=== PATIENT | male | born 1950 | race Caucasian/White ===

== ENCOUNTER → 2020-12-23 08:54 | Outpatient (BNVA) | payer OTHER, SELFPAY | PROVIDERS: PCP Internal Medicine; Visit Provider Internal Medicine | DX: I48.0 Paroxysmal atrial fibrillation (principal); I10 Essential (primary) hypertension; E78.5 Hyperlipidemia, unspecified | CPT/HCPCS: 93005; 99202 ==

== ENCOUNTER → 2021-01-31 09:12 | Outpatient (REF) | payer MEDICARE, OTHER, SELFPAY ==
--- NOTE | 2021-01-31 09:19 | CA_ITS ---
Transthoracic Echocardiogram Patient (Last, First, Middle): Michael Jaramillo, Gender: Male Date of : 1950 Age: 71 Procedure Date: 01/31/2021 Procedure Type: Transthoracic Echocardiogram Location: OP Height: 170.18 cm Weight: 68.04 kg BSA: 1.79 m2 Heart Rate: bpm BP: 120 / 66 mmHg Microstrategy Architect Developer: [email or web address] Referring MD: Oliverio Starks MD Symptoms: I48.0 - Paroxysmal atrial fibrillation Study Quality: Fair ECG Rhythm: Sinus Conclusions: - The left ventricular systolic function is normal. The visually estimated ejection fraction is between 60-65%. - There is mild aortic valve regurgitation. - There is mild mitral valve regurgitation. - There is mild tricuspid valve regurgitation. - Top normal ascending aortic size at 4 cm. Findings Left Ventricle Normal left ventricular cavity size. There is normal left ventricular wall thickness. The left ventricular systolic function is normal. The visually estimated ejection fraction is between 60-65%. There is no evidence of regional wall motion abnormalities. E/E prime ratio is <8, consistent with normal filling pressures. Evidence suggests grade I (mild) diastolic dysfunction. Right Ventricle Normal right ventricular cavity size and systolic function. Atria The left atrium is normal in size. The right atrium is normal in size. Aortic Valve There is a normal trileaflet aortic valve. There is no aortic valve stenosis. There is mild aortic valve regurgitation. Mitral Valve The mitral valve appears normal. There is mild mitral valve regurgitation. There is no mitral valve stenosis. Pulmonic Valve The pulmonic valve was not well visualized. Tricuspid Valve Normal tricuspid valve structure. There is mild tricuspid valve regurgitation. The pulmonary artery systolic pressure is normal. Great Vessels Top normal ascending aortic size at 4 cm; arch measures 3.5 cm. Venous The inferior vena cava is normal in size and collapses greater than 50% with inspiration. Pericardium/Pleural There is no evidence of pericardial effusion. Prior Study Comparison No prior study available for comparison. Measurements 2D Linear Measurements IVSd: 1.05 0.6-0.9/0.6-1.0 cm LVIDd: 5.14 3.9-5.3/4.2-5.9 cm LVIDd Index: 2.87 2.4-3.2/2.2-3.1 cm/m2 LVIDs: 3.23 2.0-3.6 cm LVPWd: 0.84 0.7-1.1 cm Ao Root: 3.30 2.1-3.5 cm LA Diam: 3.70 2.7-3.8/3.0-4.0 cm LAIDs Index: 2.07 1.5-2.3 cm/m2 LV Mass: 220.25 67-162/88-224 g LV Mass Index: 123.05 43-95/49-115 g/m2 LVOT Diam: 2.10 3.0+(-)1.3 cm 2D Systolic Function EF 4C: 67.80 >55% EF 2C: 62.60 >55% EF BiP: 63.20 >55% Mitral Valve MV Pk E: 0.56 MV PK A: 0.56 MV Decel Time: 206.00 E/A: 1.00 E'Lateral: 7.35 E'Medial: 6.77 E/E' Med: 8.30 E/E' Lat: 7.70 PHT: 60.00 MVA PHT: 3.67 Decel [place]: 2.73 Aortic Valve AoV Pk Rubin: 1.48 AoV Pk Grad: 9.00 AI Pk Rubin: 3.64 AI [place]: 2.15 LVOT LVOT Pk Rubin: 0.89 LVOT Mn Rubin: 0.60 LVOT VTI: 0.19 LVOT Pk Grad: 3.00 LVOT Mn Grad: 2.00 LVOT Diam: 2.10 LVOT Area: 3.46 Diastolic Function MV Pk E: 0.56 MV Pk A: 0.56 E/A: 1.00 E'Medial: 6.77 E/E' Med: 8.30 E' Laterial: 7.35 E/E' Lat: 7.70 Tricuspid Valve TR Pk Rubin: 2.21 TR Pk Grad: 20.00 RA Press: 3.00 RVSP: 23.00 Great Vessels Aorta Ao Root-2D: 3.30 2.0-3.7 cm Ao Asc: 3.90 2.1-3.4 cm Ao Arch: 3.50 Updated in Other Vendor System with Status of Final Oliverio Starks MD electronically signed on 01/31/2021 1:46:31 PM with status of Final
--- NOTE | 2021-01-31 09:19 | ECG_ITS ---
Hook-up date: 2021-01-31 10:29:00 Duration: 27:22:00 Test Indications: PAF Medications: 00928 QRS complexes 129 Ventricular ectopics which represent <1 % of total QRS comp. 4 Supraventricular ectopics which represent <1 % of total QRS comp. * Paced QRS complexs which represent % of total QRS comp. VENTRICULAR ECTOPY 129 Isolated 0 Bigeminal Cycles 0 Couplets 0 Runs 0 Beats in Runs * Beats LONGEST at * BPM at :: -- * Beats FASTEST at * BPM at :: -- SUPRAVENTRICULAR ECTOPY 4 Isolated 0 Couplets 0 Runs 0 Beats in Runs * Beats LONGEST at * BPM at :: -- * Beats FASTEST at * BPM at :: -- HEART RATES 47 MIN at 23:59:34 2021-01-31 66 AVG 104 MAX at 10:20:22 2021-02-01 LONGEST RR 1.3680 secs at 23:59:28 2021-01-31 S-T LEVELS Channel 1 - 128 mm at 10:29:00 2021-01-31 - 128 mm at 10:29:00 2021-01-31 Channel 2 - 128 mm at 10:29:00 2021-01-31 - 128 mm at 10:29:00 2021-01-31 Channel 3 - 128 mm at 02:94:81 -- - 128 mm at 02:94:81 Underlying rhythm is sinus; Average ventricular rate 66/min; Rare PVCs; No evidence of atrial fibrillation; Patient did not report any symptoms in the diary Referred By: Keila Rendon Overread By: KEILA RENDON
== END ==
LOC: HO.CARD 09:12
PROVIDERS: PCP Internal Medicine; Visit Provider Internal Medicine
DX: I48.0 Paroxysmal atrial fibrillation (principal)
CPT/HCPCS: 93225; 93226; 93306

== ENCOUNTER → 2021-02-14 09:35 | Outpatient (BNVA) | payer MEDICARE, OTHER, SELFPAY | PROVIDERS: PCP Internal Medicine; Visit Provider Nurse Practitioner Family | DX: I48.0 Paroxysmal atrial fibrillation (principal); I10 Essential (primary) hypertension; E78.5 Hyperlipidemia, unspecified; Z79.01 Long term (current) use of anticoagulants | CPT/HCPCS: 99212 ==

== ENCOUNTER 2021-02-15 10:30 | Outpatient (REF) | payer MEDICARE, SELFPAY ==
[2021-02-15 11:36] LABS: MANUAL DIFF FLAG NO
[2021-02-15 11:51] LABS: Basophils Absolute Auto 0.1 X10*3/uL (0.0-0.2); Basophils Percent Auto 1.3 % (0-2); Eosinophils Absolute Auto 0.2 X10*3/uL (0.0-0.4); Eosinophils Percent Auto 3.1 % (0-4); Hematocrit 41.1 % (42-52); Hemoglobin 13.6 g/dl (14.0-18.0); Imm Gran Abs Auto 0.02 X10*3/uL (0.00-0.03); Imm Gran Pct Auto 0.4 % (0.0-0.4); Lymphocytes Absolute Auto 1.9 X10*3/uL (1.2-4.9); Mean Corpuscular HGB Conc 33.1 g/dl (31.0-36.0); Mean Corpuscular Hemoglobin 30.3 pg (27.0-33.0); Mean Corpuscular Volume 91.5 fL (80-98); Mean Platelet Volume 10.9 fL (9.4-12.4); Monocytes Absolute Auto 0.6 X10*3/uL (0.1-1.2); Monocytes Percent Auto 11.9 % (2-11); Neutrophils Absolute Auto 2.1 X10*3/uL (2.0-8.3); Neutrophils Percent Auto 44.3 % (45-73); Platelet Count 172 X10*3/uL (160-400); Red Blood Count 4.49 X10*6/uL (4.60-5.80); Red Cell Distribution Width 12.6 % (11.0-16.0); White Blood Count 4.8 X10*3/uL (4.8-10.8)
[2021-02-15 12:19] LABS: Alanine Aminotransferase 16 U/L (0-40); Albumin Level 4.4 g/dL (3.5-5.0); Alkaline Phosphatase 64 U/L (39-117); Anion Gap 11 (12-20); Aspartate Amino Transferase 17 U/L (5-37); Bilirubin Total 1.6 mg/dL (0.0-1.0); Blood Urea Nitrogen 10 mg/dL (9-16); Calcium 9.6 mg/dL (8.4-10.2); Carbon Dioxide 27 mmol/L (22-29); Chloride 103 mmol/L (96-108); Cholesterol 183 mg/dL; Estimated Glomerular Filt Rate > 60; Glucose Fasting 94 mg/dL (60-99); HDL Cholesterol 67 mg/dL; LDL Cholesterol Calculated 89 mg/dl; Potassium 4.3 mmol/L (3.3-5.1); Sodium 137 mmol/L (135-145); Total Protein 7.1 g/dL (6.5-8.0); Triglycerides 138 mg/dL
== END 2021-02-15 10:31 | disposition home or self-care (01) ==
LOC: HO.LAB 10:30
PROVIDERS: PCP Internal Medicine; Visit Provider Internal Medicine
DX: N40.0 Benign prostatic hyperplasia without lower urinary tract symptoms (principal); I48.91 Unspecified atrial fibrillation; E78.5 Hyperlipidemia, unspecified; E03.9 Hypothyroidism, unspecified
CPT/HCPCS: 36415; 51798; 80053; 80061; 81002; 84443; 85025; 99202

== ENCOUNTER → 2021-08-14 10:16 | Outpatient (BNVA) | payer MEDICARE, OTHER, SELFPAY | PROVIDERS: PCP Internal Medicine; Referring Provider Internal Medicine; Visit Provider Internal Medicine | DX: I48.0 Paroxysmal atrial fibrillation (principal); I10 Essential (primary) hypertension; E78.5 Hyperlipidemia, unspecified; G47.33 Obstructive sleep apnea (adult) (pediatric) | CPT/HCPCS: 99212 ==

== ENCOUNTER → 2021-09-12 10:14 | Outpatient (BNVA) | payer MEDICARE, OTHER, SELFPAY | PROVIDERS: PCP Internal Medicine; Referring Provider Internal Medicine; Visit Provider Psychiatry & Neurology Neurology | DX: G47.33 Obstructive sleep apnea (adult) (pediatric) (principal) | CPT/HCPCS: 99202 ==

== ENCOUNTER → 2021-09-28 10:49 | Outpatient (REF) | payer MEDICARE, OTHER, SELFPAY | LOC: HO.SL 10:49 | PROVIDERS: PCP Internal Medicine; Visit Provider Psychiatry & Neurology Neurology | DX: G47.33 Obstructive sleep apnea (adult) (pediatric) (principal) | CPT/HCPCS: 95806 ==

== ENCOUNTER 2021-11-02 10:38 | Outpatient (REF) | payer MEDICARE, OTHER, SELFPAY ==
[2021-11-02 10:54] LABS: MANUAL DIFF FLAG NO
[2021-11-02 11:28] LABS: Basophils Absolute Auto 0.1 X10*3/uL (0.0-0.2); Basophils Percent Auto 1.3 % (0-2); Eosinophils Absolute Auto 0.2 X10*3/uL (0.0-0.4); Eosinophils Percent Auto 3.6 % (0-4); Hematocrit 41.1 % (42.0-52.0); Hemoglobin 13.6 g/dl (14.0-18.0); Imm Gran Abs Auto 0.01 X10*3/uL (0.00-0.03); Imm Gran Pct Auto 0.2 % (0.0-0.4); Lymphocytes Absolute Auto 1.9 X10*3/uL (1.2-4.9); Lymphocytes Percent Auto 40.2 % (20-40); Mean Corpuscular HGB Conc 33.1 g/dl (31.0-36.0); Mean Corpuscular Hemoglobin 30.3 pg (27.0-33.0); Mean Corpuscular Volume 91.5 fL (80.0-98.0); Mean Platelet Volume 11.2 fL (9.4-12.4); Monocytes Absolute Auto 0.6 X10*3/uL (0.1-1.2); Monocytes Percent Auto 12.6 % (2-11); Neutrophils Percent Auto 42.1 % (45-73); Platelet Count 168 X10*3/uL (160-400); Red Blood Count 4.49 X10*6/uL (4.60-5.80); Red Cell Distribution Width 12.5 % (11.0-16.0); White Blood Count 4.7 X10*3/uL (4.8-10.8)
[2021-11-02 11:55] LABS: Alanine Aminotransferase 19 U/L (0-40); Albumin Level 4.3 g/dL (3.5-5.0); Alkaline Phosphatase 67 U/L (39-117); Anion Gap 9 (12-20); Aspartate Amino Transferase 20 U/L (5-37); Bilirubin Total 1.2 mg/dL (0.0-1.0); Blood Urea Nitrogen 9 mg/dL (9-16); Calcium 9.5 mg/dL (8.4-10.2); Carbon Dioxide 28 mmol/L (22-29); Chloride 106 mmol/L (96-108); Cholesterol 199 mg/dL; Estimated Glomerular Filt Rate > 60; Glucose Fasting 93 mg/dL (60-99); HDL Cholesterol 62 mg/dL; LDL Cholesterol Calculated 108 mg/dl; Potassium 4.4 mmol/L (3.3-5.1); Sodium 139 mmol/L (135-145); Total Protein 7.2 g/dL (6.5-8.0); Triglycerides 148 mg/dL; Uric Acid 6.5 mg/dL (3.4-7.0)
[2021-11-02 12:10] LABS: Thyroid Stimulating Hormone 1.71 uIU/mL (0.32-4.0)
[2021-11-07 15:02] LABS: Vitamin D 25-OH, D2 <4 ng/mL; Vitamin D 25-OH, D3 13 ng/mL; Vitamin D 25-OH, Total 13 ng/mL (30-100)
== END 2021-11-02 10:39 | disposition home or self-care (01) ==
LOC: HO.LAB 10:38
PROVIDERS: PCP Internal Medicine; Visit Provider Internal Medicine
DX: E78.5 Hyperlipidemia, unspecified (principal); E55.9 Vitamin D deficiency, unspecified; M10.9 Gout, unspecified; E03.9 Hypothyroidism, unspecified; I48.0 Paroxysmal atrial fibrillation; D64.9 Anemia, unspecified; I10 Essential (primary) hypertension
CPT/HCPCS: 36415; 80053; 80061; 82306; 84443; 84550; 85025

== ENCOUNTER → 2021-11-28 08:48 | Outpatient (BNVA) | payer MEDICARE, MEDICAID, SELFPAY | PROVIDERS: PCP Internal Medicine; Referring Provider Internal Medicine; Visit Provider Psychiatry & Neurology Neurology | DX: G47.33 Obstructive sleep apnea (adult) (pediatric) (principal) | CPT/HCPCS: 99212 ==

== ENCOUNTER → 2022-02-06 10:23 | Outpatient (BNVA) | payer MEDICARE, MEDICAID, SELFPAY | PROVIDERS: PCP Internal Medicine; Referring Provider Internal Medicine; Visit Provider Internal Medicine | DX: I48.0 Paroxysmal atrial fibrillation (principal); I77.89 Other specified disorders of arteries and arterioles; I38 Endocarditis, valve unspecified; I10 Essential (primary) hypertension; E78.5 Hyperlipidemia, unspecified; G47.33 Obstructive sleep apnea (adult) (pediatric) | CPT/HCPCS: 93005; 99212 ==

== ENCOUNTER 2022-02-15 10:32 | Outpatient (REF) | payer MEDICARE, MEDICAID, SELFPAY ==
[2022-02-15 13:26] LABS: Prostate Specific Antigen 1.32 ng/mL (<0.05-4.0)
== END 2022-02-15 10:33 | disposition home or self-care (01) ==
LOC: HO.LAB 10:32
PROVIDERS: PCP Internal Medicine; Visit Provider Urology
DX: Z12.5 Encounter for screening for malignant neoplasm of prostate (principal); N40.0 Benign prostatic hyperplasia without lower urinary tract symptoms; N40.1 Benign prostatic hyperplasia with lower urinary tract symptoms; N13.8 Other obstructive and reflux uropathy
CPT/HCPCS: 36415; 51798; 84153; 99212

== ENCOUNTER 2022-02-15 10:32 | Outpatient (AMB) | payer MEDICARE, MEDICAID, SELFPAY ==
--- NOTE | 2022-02-15 10:44 | A.OFFVIS_ITS ---
Intake Intake Visit Reasons: no psa done pvr follow up, one year psa (PSA?) Intake Note: Patient is present for pvr follow up. Patient was due for PSA but it was not done. Informed patient that he will need a recent psa result. 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 Accompanied by his daughter today. 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 PVR 0 Doing well with tamsulosin and bethanechol Would continue Follow-up in year Lower urinary tract symptoms Has been taking medication since 2019 Current medications tamsulosin with bethanechol Initially started after episode of urinary retention in [place] Current symptoms - minimal - weak stream, minimal nocturia, minimal bother Investigations - none PSA - none recorded Therapeutic plan - remain on medications and repeat PSA in 12 months [facility] Medical History (Updated 02/06/22 @ 11:52 by Oliverio Starks MD) Afib BPH (benign prostatic hyperplasia) Current use of intermediate designer anticoagulation Dyslipidemia Essential hypertension Gout Hypothyroidism Hypovitaminosis D BENNIE (obstructive sleep apnea) Other and unspecified hyperlipidemia PAF (paroxysmal atrial fibrillation) Physical exam Surgical History No pertinent past surgical history Family History Father Alzheimer disease Mother Arthritis Other Mental health problem Social History Housing: Apartment Alcohol intake: current Alcohol intake frequency: holidays/special occasions only Alcohol type: beer Patient Tobacco Use Status: Never used Tobacco e-Cigarette/Vaping Use: Never Used Second Hand Smoke Exposure: No service: No Current occupational status: retired and disabled Review of Systems Const Denies chills and Denies fever(s) Card Reports no additional complaints and Denies syncope Resp Denies cough GI Denies abdominal pain and Denies heartburn Reports as per HPI and Denies change in libido Neuro Denies syncope Psych Denies change in libido Endo Denies change in libido Physical Exam Const General: cooperative, healthy appearing, comfortable and no acute distress Orientation/consciousness: patient oriented x3 HEENT Face and sinus: Yes normal facial exam Mouth: moist mucous membranes Neck Neck: Yes normal visual inspection, Yes full ROM and Yes trachea midline Chest Chest palpation & inspection: normal inspection of the chest Resp Effort & Inspection: normal respiratory effort, able to speak in complete sentences and no respiratory distress GI Inspection: Yes normal to inspection Back/Spine/Pelvis Cervical Spine: normal cervical lordosis Thoracic/Lumbar Spine: thoracic and lumbar spine normal to inspection Skin General skin exam: no rashes or lesions noted Neuro General: patient oriented x3, gait normal, tone normal and moves all extremities Extrem General: Yes normal to inspection and Yes capillary refill normal Office Procedures Post Void Residual Post Residual Void Post Void Residual (PVR): 0 [id number] Void Residual by ultrasound Assessment & Plan Assessment & Plan (1) BPH (benign prostatic hyperplasia): Code(s): N40.0 - Benign prostatic hyperplasia without lower urinary tract symptoms Plan One year follow-up Orders: Orders AMB Urinalysis Automated Today Z13.9 - Encounter for screening, unspecified AMB Post Void Residual by ultrasound Today N40.0 - Benign prostatic hyperplasia without lower urinary tract symptoms Prostate Specific Antigen Today N13.8 - Other obstructive and reflux uropathy, N40.0 - Benign prostatic hyperplasia without lower urinary tract symptoms, N40.1 - Benign prostatic hyperplasia with lower urinary tract symptoms Patient Instructions: The patient had an opportunity to ask questions regarding treatment plan. All questions were answered. Imaging studies, laboratory studies and physical exam results were discussed and reviewed in detail. No major barriers to understanding were identified. The patient expressed understanding and agreement with the above treatment plan. The patient is aware they should contact our office by phone for worsening of their current condition or the appearance of new symptoms. Compliance is encouraged with any medications and followup testing that is ordered. It is a privilege to be allowed the opportunity to participate in the urologic care of your patient. If you have any questions or concerns regarding treatment for the above conditions please do not hesitate to contact me. The office telephone contact is [phone]. This note is constructed using voice recognition software. While every effort has been made to ensure accuracy scientific technical writer errors may have been included. Yours sincerely, Dr Elías Coon MD, BRANDON Coding Level of Care Code Est Pt Level 4 (95195) Diagnoses BPH (benign prostatic hyperplasia) N40.0 CPT Codes Post Residual Void - PVR CPT Code: 77417-[id number] Void Residual by ultrasound ([id number])
== END 2022-02-15 11:12 | disposition home or self-care (01) ==
LOC: HO.HUSH 10:32
PROVIDERS: PCP Internal Medicine; Visit Provider Urology
DX: Z13.9 Encounter for screening, unspecified (principal)
CPT/HCPCS: 99213

== ENCOUNTER 2022-04-17 15:21 | Outpatient (REF) | payer MEDICARE, MEDICAID, SELFPAY ==
[2022-04-17 16:24] LABS: Thyroid Stimulating Hormone 1.57 uIU/mL (0.32-4.0)
[2022-04-22 13:42] LABS: Vitamin D 25-OH, D2 25 ng/mL; Vitamin D 25-OH, D3 8 ng/mL; Vitamin D 25-OH, Total 33 ng/mL (30-100)
== END 2022-04-17 15:22 | disposition home or self-care (01) ==
LOC: HO.LAB 15:21
PROVIDERS: PCP Internal Medicine; Visit Provider Internal Medicine
DX: E55.9 Vitamin D deficiency, unspecified (principal); E03.9 Hypothyroidism, unspecified
CPT/HCPCS: 36415; 82306; 84443

== ENCOUNTER → 2022-04-24 20:50 | Outpatient (REF) | payer MEDICARE, MEDICAID, SELFPAY | LOC: HO.SL 20:50 | PROVIDERS: Visit Provider Psychiatry & Neurology Neurology | DX: G47.33 Obstructive sleep apnea (adult) (pediatric) (principal) | CPT/HCPCS: 95810 ==

== ENCOUNTER → 2022-04-30 13:30 | Outpatient (BNVA) | payer MEDICARE, MEDICAID, SELFPAY | PROVIDERS: PCP Internal Medicine; Visit Provider Nurse Practitioner Family | DX: G47.33 Obstructive sleep apnea (adult) (pediatric) (principal); Z99.89 Dependence on other enabling machines and devices | CPT/HCPCS: 99211 ==

== ENCOUNTER 2022-11-26 08:05 | Outpatient (REF) | payer MEDICARE, MEDICAID, SELFPAY ==
[2022-11-26 08:54] LABS: Alanine Aminotransferase 11 U/L (0-40); Albumin Level 4.1 g/dL (3.5-5.0); Alkaline Phosphatase 66 U/L (39-117); Anion Gap 11 (12-20); Aspartate Amino Transferase 15 U/L (5-37); Bilirubin Total 1.2 mg/dL (0.0-1.0); Blood Urea Nitrogen 10 mg/dL (9-16); Calcium 9.2 mg/dL (8.4-10.2); Carbon Dioxide 25 mmol/L (22-29); Chloride 105 mmol/L (96-108); Cholesterol 188 mg/dL; Estimated Glomerular Filt Rate > 60; Glucose Fasting 94 mg/dL (60-99); HDL Cholesterol 63 mg/dL; LDL Cholesterol Calculated 105 mg/dl; Potassium 4.1 mmol/L (3.3-5.1); Sodium 137 mmol/L (135-145); Total Protein 6.7 g/dL (6.5-8.0); Triglycerides 101 mg/dL; Uric Acid 6.1 mg/dL (3.4-7.0)
[2022-11-26 09:15] LABS: Thyroid Stimulating Hormone 2.22 uIU/mL (0.32-4.0); Vitamin D 25-OH Total 13.8 ng/mL (>30)
== END 2022-11-26 08:06 | disposition home or self-care (01) ==
LOC: HO.LAB 08:05
PROVIDERS: PCP Internal Medicine; Visit Provider Internal Medicine
DX: M10.9 Gout, unspecified (principal); E55.9 Vitamin D deficiency, unspecified; E03.9 Hypothyroidism, unspecified; I10 Essential (primary) hypertension; E78.5 Hyperlipidemia, unspecified
CPT/HCPCS: 36415; 80053; 80061; 82306; 84443; 84550

== ENCOUNTER → 2023-01-21 12:40 | Outpatient (REF) | payer MEDICARE, MEDICAID, SELFPAY ==
--- NOTE | 2023-01-21 12:44 | HM_ITS ---
* Total monitoring time about 3 days. * Underlying rhythm is sinus. Average ventricular rate 65/Min. Range 46 to 99/Min. * Occasional ventricular ectopy with burden of 0.6%. 2 couplets. * Rare premature supraventricular ectopy. * No sustained arrhythmias. * No significant pauses or AV blocks. * Patient marker used twice, in association sinus. No diary events. MTDD
--- NOTE | 2023-01-21 12:44 | CA_ITS ---
Transthoracic Echocardiogram Patient (Last, First, Middle): Michael Cuevas, Gender: Male Date of : 1950 Age: 72 Procedure Date: 01/21/2023 Procedure Type: Transthoracic Echocardiogram Location: OP Height: 170.18 cm Weight: 72.58 kg BSA: 1.84 m2 Heart Rate: 61 bpm BP: 128 / 68 mmHg Boat Laborer: SB Referring MD: Oliverio Starks MD Symptoms: I48.0 - Paroxysmal atrial fibrillation Study Quality: Adequate ECG Rhythm: Sinus Conclusions: - The left ventricular systolic function is normal. The calculated ejection fraction is 66% by biplane method. - Trace to mild aortic regurgitation. - There is mild dilatation of the ascending aorta measuring 4.00 cm. Findings Left Ventricle Normal left ventricular cavity size. There is normal left ventricular wall thickness. The left ventricular systolic function is normal. The calculated ejection fraction is 66% by biplane method. There is no evidence of regional wall motion abnormalities. Diastolic function is normal for age. LV peak GLS -20.2%. Right Ventricle Normal right ventricular cavity size and systolic function. Atria Both atria are normal in size. Aortic Valve There is a normal trileaflet aortic valve. There is no aortic valve stenosis. Trace to mild aortic regurgitation. Mitral Valve The mitral valve appears normal. There is trace mitral valve regurgitation. There is no mitral valve stenosis. Pulmonic Valve The pulmonic valve is likely normal. Tricuspid Valve Normal tricuspid valve structure. There is mild tricuspid valve regurgitation. There is no evidence of pulmonary hypertension. Great Vessels There is mild dilatation of the ascending aorta measuring 4.00 cm. Venous The inferior vena cava is normal in size and collapses greater than 50% with inspiration. Pericardium/Pleural There is no evidence of pericardial effusion. Prior Study Comparison No significant change compared to prior study dated: 01/31/2021. Measurements 2D Linear Measurements IVSd: 0.81 0.6-0.9/0.6-1.0 cm LVIDd: 5.70 3.9-5.3/4.2-5.9 cm LVIDd Index: 3.10 2.4-3.2/2.2-3.1 cm/m2 LVIDs: 3.34 2.0-3.6 cm LVPWd: 0.54 0.7-1.1 cm LA Diam: 3.40 2.7-3.8/3.0-4.0 cm LAIDs Index: 1.85 1.5-2.3 cm/m2 LV Mass: 171.82 67-162/88-224 g LV Mass Index: 93.38 43-95/49-115 g/m2 LVOT Diam: 2.30 3.0+(-)1.3 cm 2D Systolic Function EF 4C: 55.60 >55% EF 2C: 75.90 >55% EF BiP: 66.30 >55% Mitral Valve MV Pk E: 0.61 MV PK A: 0.67 MV Decel Time: 163.00 E/A: 0.90 E'Lateral: 8.70 E'Medial: 6.85 E/E' Med: 8.90 E/E' Lat: 7.00 PHT: 48.00 MVA PHT: 4.58 Decel [place]: 3.76 Aortic Valve AoV Pk Rubin: 1.59 AoV Pk Grad: 10.00 DHAVAL: 3.14 AI Pk Rubin: 4.04 AI [place]: 1.64 LVOT LVOT Pk Rubin: 1.27 LVOT Mn Rubin: 0.84 LVOT VTI: 0.29 LVOT Pk Grad: 6.00 LVOT Mn Grad: 3.00 LVOT Diam: 2.30 LVOT Area: 4.15 Diastolic Function MV Pk E: 0.61 MV Pk A: 0.67 E/A: 0.90 E'Medial: 6.85 E/E' Med: 8.90 E' Laterial: 8.70 E/E' Lat: 7.00 Right Ventricle TAPSE (mm): 22.20 TVS' Rubin: 12.10 Tricuspid Valve TR Pk Rubin: 2.43 TR Pk Grad: 24.00 RA Press: 3.00 RVSP: 27.00 Great Vessels Aorta Sinus of Valsalva: 3.70 2.0-3.5 cm Ao Asc: 4.00 2.1-3.4 cm Pulmonary Valve PV Pk Rubin: 0.89 Peak PV Grad: 3.00 Updated in Other Vendor System with Status of Final Oliverio Starks MD electronically signed on 01/22/2023 12:13:56 PM with status of Final
== END ==
LOC: HO.CARD 12:40
PROVIDERS: Visit Provider Internal Medicine
DX: I48.0 Paroxysmal atrial fibrillation (principal); I77.89 Other specified disorders of arteries and arterioles
CPT/HCPCS: 93242; 93306; 93356

== ENCOUNTER 2023-02-01 09:14 | Outpatient (REF) | payer MEDICARE, MEDICAID, SELFPAY ==
[2023-02-01 11:13] LABS: Prostate Specific Antigen 1.41 ng/mL (<0.05-4.0)
== END 2023-02-01 09:15 | disposition home or self-care (01) ==
LOC: HO.LAB 09:14
PROVIDERS: PCP Internal Medicine; Visit Provider Urology
DX: N40.1 Benign prostatic hyperplasia with lower urinary tract symptoms (principal); N13.8 Other obstructive and reflux uropathy; Z12.5 Encounter for screening for malignant neoplasm of prostate
CPT/HCPCS: 36415; 84153

== ENCOUNTER → 2023-02-11 10:54 | Outpatient (BNVA) | payer MEDICARE, MEDICAID, SELFPAY | PROVIDERS: PCP Internal Medicine; Referring Provider Internal Medicine; Visit Provider Internal Medicine | DX: I48.0 Paroxysmal atrial fibrillation (principal); I77.89 Other specified disorders of arteries and arterioles; I38 Endocarditis, valve unspecified; I10 Essential (primary) hypertension; G47.33 Obstructive sleep apnea (adult) (pediatric) | CPT/HCPCS: 93005; 99212 ==

== ENCOUNTER → 2023-02-15 10:56 | Outpatient (BNVA) | payer MEDICARE, MEDICAID, SELFPAY | PROVIDERS: PCP Internal Medicine; Visit Provider Urology | DX: N40.1 Benign prostatic hyperplasia with lower urinary tract symptoms (principal); R33.9 Retention of urine, unspecified | CPT/HCPCS: 51798; 99212 ==

== ENCOUNTER 2023-07-02 08:15 | Outpatient (AMB) | payer MEDICARE, MEDICAID, SELFPAY ==
--- NOTE | 2023-07-02 08:37 | A.OFFVIS_ITS ---
Intake Vital Signs 07/02/23 08:40 Height 5 ft 7 in Weight 158 lb 15.253 oz BMI 24.9 BP 134/84 Blood Pressure Location Lt brachial Position Sitting Pulse 72 Pulse Source Pulse Oximeter Temp 98 F Temp Source Skin Pulse Oximetry (%) 98 Oxygen Delivery Method Room Air Intake Visit Reasons: Joint pain Intake Note: New patient here for joint pain. c/o left hip pain radiating down leg, on and off x 4 months Criminal Justice Instructor Required: Yes Criminal Justice Instructor Language: Chemistry Professor Name: Mason [id number] Information Interpreted: clinical only Accompanied by: Daughter Allergies No Known Allergies Allergy (Verified 07/02/23 08:45) Medication List - Last Reconciled 07/02/23 by Wilton Yates MD atorvastatin 10 mg PO DAILY 90 days bethanechol chloride 25 mg PO BID 90 days levothyroxine 25 mcg PO DAILY 90 days losartan 25 mg PO DAILY 90 days metoprolol succinate ER 25 mg PO DAILY 90 days rivaroxaban (Xarelto) 20 mg PO DAILY 90 days tamsulosin 0.4 mg PO DAILY 90 days HPI HPI Comments History of Present Illness Details The patient presents for evaluation of left hip pain. His daughter accompanies her today. We use the [employer]ik[employer] translating service to facilitate the visit. The pain has been present for some 4 months. He points to the posterolateral buttock area as the point of most pain. He does not recall any injury to the area. He gets occasional low back pains. He has not taken any medications for this. He is on anticoagulant treatment for atrial fibrillation so he tends to avoid NSAIDs. He does not seem to have any other areas of pain. There has been no fever, chills or weight loss. 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 Hypothyroidism Dyslipidemia Essential hypertension Surgical History No pertinent past surgical history Family History (Updated 07/02/23 @ 08:45 by CORY Don) Father Alzheimer disease Mother Arthritis Other Mental health problem Social History (Updated 07/02/23 @ 08:46 by CORY Don) Household Members: Other Household Members Other:: daughter Housing: Apartment Alcohol intake: current Alcohol intake frequency: holidays/special occasions only Alcohol type: beer Patient Tobacco Use Status: Never used Tobacco e-Cigarette/Vaping Use: Never Used Second Hand Smoke Exposure: No service: No Current occupational status: retired and disabled Cognitive needs: No Hearing needs: No Vision needs: Yes Review of Systems Const Details: He has some fatigue that tends to come and go. Negative for appetite change, weight change, fever, chills, malaise Eyes Details: Some ocular dryness. He uses some ocular lubricants. Occasional headache. Negative for vision change, and dizziness ENT Details: Negative for hearing change, tinnitus, oral ulcer, nose bleeds and oral dryness. Card Details: Negative chest pain, edema and syncope Resp Details: Negative for SOB, cough and wheezing GI Details: 00 Negative indigestion/heartburn, nausea, abdominal pain, bowel changes, diarrhea, constipation and bloody stool. Details: Some nocturia and decreased urinary streamNegative for dysuria, hematuria, nocturia, decreased force/flow and genital discharge Skin/Breast Details: Negative for itching, rash, hives, Raynaud's symptoms, sun sensitivity, and skin cancer Neuro Details: Negative for epilepsy, palsy, stroke, changes in speech, tingling and weakness Psych Details: Negative for anxiety, depression and stress Endo Details: Negative for polyuria and polydypsia Mohsen/Lymph Details: Negative for excessive bruising or bleeding. Physical Exam Vital Signs: Last Vital Signs Temp 98 F 07/02/23 08:40 Pulse 72 07/02/23 08:40 BP 134/84 07/02/23 08:40 Pulse Ox 98 07/02/23 08:40 Oxygen Delivery Method Room Air 07/02/23 08:40 BMI result Body Mass Index 24.9 APPEARANCE: Patient in no acute distress EYES no redness, pupils equal and reactive to light, eyelids normal no temporal artery tenderness, redness or swelling. EARS: External ear normal, canal clear and tympanic membrane normal. NOSE/SINUS: Airflow through both nares, no nasal discharge, no bleeding THROAT: Oral mucosa moist, no ulcerations NECK: No thyromegaly or masses, no adenopathy, trachea midline. HEART: Regulrar rhythm, S1-S2 heard, no murmurs, rubs or gallops. LUNG: Clear to percussion and auscultation ABD: Normal bowel sounds, no organomegaly, masses or tenderness. EXTREMITIES: No edema, no calf tenderness, normal peripheral pulses. NEURO: Oriented and alert x3. No focal weakness. Reflexes symmetric. Gait normal. SKIN: No inflammatory or neoplastic lesions. Normal color and turgor JOINT EXAM:.?? Cervical Spine:? Full range of motion without pain; no tenderness. Thoracic Spine:.? No scoliosis.? No tenderness on palpation. Lumbar Spine:.? Alignment normal.? Full range of motion without pain, no tenderness. Chest Wall:.? No tenderness, swelling, increased warmth or erythema. Hands: Right: There is pain-free range of motion of the joints. He does have nontender bony enlargement at the base of the thumb. There is some slight bony enlargement at the thumb IP and the 2nd and 3rd PIP is but these joints are not tender. Similarly there is some nontender bony enlargement at the 2nd and 5th distal IP joints. No thenar atrophy or sensory loss. Left:? Normal pain-free range of motion. There is some nontender bony enlargement at the 2nd, 3rd, and 5th distal IP joints. In other joints there is no tenderness, swelling, increased warmth or erythema. Able to make a full fist and has a good raw shellfish preparer strength. Wrists:.? Normal pain-free range of motion without tenderness, swelling, increased warmth or erythema. Elbows:. Normal pain-free range of motion without tenderness, swelling, increased warmth or erythema. Shoulders:.?? Full range of motion without pain. No tenderness, weakness, swelling, increased warmth or erythema. Hips: Left: There is mild lateral and posterolateral pain with the extremes of internal or external rotation. There is no groin pain with motion. Right:? Full range of motion without pain. Hip bursa:.? Left: I can not really detect any discrete area of tenderness. Right: No tenderness. Knees:.?? Normal pain-free range of motion with mild patellofemoral crepitus but no effusion, tenderness, swelling, increased warmth or erythema.? Ankles:.? Normal pain-free range of motion without tenderness, swelling, increased warmth or erythema. Feet:.? Normal pain-free range of motion without tenderness, swelling, increased warmth or erythema. Tender points:.? No tenderness to digital palpation at the occiput, trapezius, second rib, lateral epicondyle, knees, greater trochanter and gluteal area bilaterally. ? Assessment & Plan Assessment & Plan (1) Osteoarthritis of hands, bilateral: Code(s): M19.041 - Primary osteoarthritis, right hand; M19.042 - Primary osteoarthritis, left hand (2) Left hip pain: Code(s): M25.552 - Pain in left hip Plan The patient seems to have mostly some lateral hip pain. This is worse with lying on the hip; this is very suggestive of some trochanteric bursitis although I cannot find an area of tenderness in the region. There could be some referred pain from lumbar osteoarthritis. I instructed him in some gentle, [id number] exercises. He should use some ice on the area before he goes to bed at night and put heat on it in the morning. We will check x-rays of the hip and lumbar spine to look for other pathology. CBC, ESR and CRP are also ordered. We will get back to him with the results of the studies. Orders: Orders Complete Blood Count Auto Diff Today M25.552 - Pain in left hip XR hip LT min 2V Today M25.551 - Pain in right hip, M25.552 - Pain in left hip Erythrocyte Sedimentation Rate Today M25.552 - Pain in left hip C Reactive Protein Today M25.552 - Pain in left hip XR lumbar spine 2-3V Today M25.552 - Pain in left hip Coding Level of Care Code New Pt Level 3 (82982) Diagnoses Osteoarthritis of hands, bilateral M19.041; M19.042 Left hip pain M25.552
[2023-07-02 08:40] VITALS: BP 134/84; PULSE 72; TEMP 36.6; O2SAT 98; BMI 24.9
== END 2023-07-02 09:17 | disposition home or self-care (01) ==
PROVIDERS: PCP Internal Medicine; Visit Provider Internal Medicine Rheumatology
DX: M19.041 Primary osteoarthritis, right hand (principal); M19.042 Primary osteoarthritis, left hand; M25.552 Pain in left hip
CPT/HCPCS: 99203

== ENCOUNTER 2023-07-02 08:15 | Outpatient (REF) | payer MEDICARE, MEDICAID, SELFPAY ==
--- NOTE | ~2023-07-02 | XR_ITS ---
STUDY: Lumbar spine and left hip Indication: Bilateral hip pain COMPARISON: None TECHNIQUE: 3 view lumbar spine, two-view left hip. FINDINGS: Lumbar spine: Lumbar lordotic straightening, levoscoliosis. Grade 1 retrolisthesis L3 on L4 with disc space narrowing and spurring. Mild L4-L5 disc space narrowing. Pedicles and SI joints within normal limits. Mild L3 vertebral body height loss. Left hip: No fracture or dislocation. No significant joint space narrowing. Phleboliths. XR/XR lumbar spine 2-3V IMPRESSION: Lumbar scoliosis, lordotic straightening, L5 L3 and L4 retrolisthesis, L3 vertebral body height losses and disc space narrowings as described. No significant pathology left hip.
--- NOTE | ~2023-07-02 | XR_ITS ---
STUDY: Lumbar spine and left hip Indication: Bilateral hip pain COMPARISON: None TECHNIQUE: 3 view lumbar spine, two-view left hip. FINDINGS: Lumbar spine: Lumbar lordotic straightening, levoscoliosis. Grade 1 retrolisthesis L3 on L4 with disc space narrowing and spurring. Mild L4-L5 disc space narrowing. Pedicles and SI joints within normal limits. Mild L3 vertebral body height loss. Left hip: No fracture or dislocation. No significant joint space narrowing. Phleboliths. XR/XR hip LT min 2V IMPRESSION: Lumbar scoliosis, lordotic straightening, L5 L3 and L4 retrolisthesis, L3 vertebral body height losses and disc space narrowings as described. No significant pathology left hip.
[2023-07-02 09:45] LABS: MANUAL DIFF FLAG NO
[2023-07-02 10:22] LABS: Basophils Absolute Auto 0.1 X10*3/uL (0.0-0.2); Basophils Percent Auto 1.6 % (0-2); Eosinophils Absolute Auto 0.1 X10*3/uL (0.0-0.4); Eosinophils Percent Auto 2.9 % (0-4); Hematocrit 38.3 % (42.0-52.0); Hemoglobin 12.9 g/dl (14.0-18.0); Imm Gran Abs Auto 0.01 X10*3/uL (0.00-0.03); Imm Gran Pct Auto 0.2 % (0.0-0.4); Lymphocytes Absolute Auto 1.6 X10*3/uL (1.2-4.9); Lymphocytes Percent Auto 35.7 % (20-40); Mean Corpuscular HGB Conc 33.7 g/dl (31.0-36.0); Mean Corpuscular Hemoglobin 30.1 pg (27.0-33.0); Mean Corpuscular Volume 89.3 fL (80.0-98.0); Mean Platelet Volume 10.4 fL (9.4-12.4); Monocytes Absolute Auto 0.6 X10*3/uL (0.1-1.2); Monocytes Percent Auto 12.4 % (2-11); Neutrophils Absolute Auto 2.1 x10*3/uL (2.0-8.3); Neutrophils Percent Auto 47.2 % (45-73); Platelet Count 175 X10*3/uL (160-400); Red Blood Count 4.29 X10*6/uL (4.60-5.80); Red Cell Distribution Width 12.5 % (11.0-16.0); White Blood Count 4.5 X10*3/uL (4.8-10.8)
[2023-07-02 10:47] LABS: C Reactive Protein < 0.10 mg/dL (< or = 0.50)
[2023-07-02 11:06] LABS: Erythrocyte Sedimentation Rate 4 MM/HR (0-15)
== END 2023-07-02 08:16 | disposition home or self-care (01) ==
LOC: HO.XRAY 08:15
PROVIDERS: PCP Internal Medicine; Visit Provider Internal Medicine Rheumatology
DX: M19.041 Primary osteoarthritis, right hand (principal); M19.042 Primary osteoarthritis, left hand; M25.552 Pain in left hip; M25.551 Pain in right hip; M41.9 Scoliosis, unspecified
CPT/HCPCS: 36415; 72100; 73502; 85025; 85652; 86140; 99202

== ENCOUNTER 2023-07-22 07:34 | Outpatient (REF) | payer MEDICARE, MEDICAID, SELFPAY ==
[2023-07-22 07:55] LABS: MANUAL DIFF FLAG NO
[2023-07-22 09:15] LABS: Basophils Absolute Auto 0.1 X10*3/uL (0.0-0.2); Basophils Percent Auto 1.8 % (0-2); Eosinophils Absolute Auto 0.2 X10*3/uL (0.0-0.4); Eosinophils Percent Auto 4.6 % (0-4); Hematocrit 40.2 % (42.0-52.0); Hemoglobin 13.6 g/dl (14.0-18.0); Imm Gran Abs Auto 0.01 X10*3/uL (0.00-0.03); Imm Gran Pct Auto 0.2 % (0.0-0.4); Lymphocytes Absolute Auto 1.9 X10*3/uL (1.2-4.9); Lymphocytes Percent Auto 42.7 % (20-40); Mean Corpuscular HGB Conc 33.8 g/dl (31.0-36.0); Mean Corpuscular Volume 91.6 fL (80.0-98.0); Monocytes Absolute Auto 0.6 X10*3/uL (0.1-1.2); Monocytes Percent Auto 13.7 % (2-11); Neutrophils Absolute Auto 1.7 x10*3/uL (2.0-8.3); Platelet Count 187 X10*3/uL (160-400); Red Blood Count 4.39 X10*6/uL (4.60-5.80); Red Cell Distribution Width 12.7 % (11.0-16.0); White Blood Count 4.5 X10*3/uL (4.8-10.8)
[2023-07-22 10:15] LABS: Alanine Aminotransferase 11 U/L (0-40); Albumin Level 4.1 g/dL (3.5-5.0); Alkaline Phosphatase 55 U/L (39-117); Anion Gap 10 (12-20); Aspartate Amino Transferase 17 U/L (5-37); Blood Urea Nitrogen 5 mg/dL (9-16); Calcium 9.1 mg/dL (8.4-10.2); Carbon Dioxide 27 mmol/L (22-29); Chloride 103 mmol/L (96-108); Cholesterol 171 mg/dL (<200); Estimated Glomerular Filt Rate > 60; Glucose Fasting 87 mg/dL (60-99); HDL Cholesterol 68 mg/dL (>40); LDL Cholesterol Calculated 83 mg/dL (<100); Potassium 4.5 mmol/L (3.3-5.1); Sodium 135 mmol/L (135-145); Total Protein 6.9 g/dL (6.5-8.0); Triglycerides 104 mg/dL (<150)
[2023-07-22 10:33] LABS: Thyroid Stimulating Hormone 3.02 uIU/mL (0.32-4.0)
== END 2023-07-22 07:35 | disposition home or self-care (01) ==
LOC: HO.LAB 07:34
PROVIDERS: PCP Internal Medicine; Visit Provider Internal Medicine
DX: M25.50 Pain in unspecified joint (principal); E03.9 Hypothyroidism, unspecified; E78.5 Hyperlipidemia, unspecified; Z79.01 Long term (current) use of anticoagulants
CPT/HCPCS: 36415; 80053; 80061; 84443; 85025

== ENCOUNTER 2023-08-05 14:16 | Outpatient (AMB) | payer MEDICARE, MEDICAID, SELFPAY ==
[2023-08-05 14:32] VITALS: BP 130/80; PULSE 68; O2SAT 99; BMI 24.3
--- NOTE | 2023-08-05 14:32 | A.OFFPC_ITS ---
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 Accompanied by: Self / Same As Patient Allergies No Known Allergies Allergy (Verified 08/05/23 14:49) Medication List - Last Reconciled 08/05/23 by Lata Pritchett MD atorvastatin 10 mg PO DAILY 90 days bethanechol chloride 25 mg PO BID 90 days levothyroxine 25 mcg PO DAILY 90 days losartan 25 mg PO DAILY 90 days metoprolol succinate ER 25 mg PO DAILY 90 days rivaroxaban (Xarelto) 20 mg PO DAILY 90 days tamsulosin 0.4 mg PO DAILY 90 days Tobacco use date assessed: 10/25/22 Fall risk assessment: No Falls in past year Last assessed Fall Risk: 08/05/23 Dental Screening Dental Screen Date: 08/05/23 Did you have a dental visit in the last 12 months?: No Did you have a dental problem in the last 6 months where you did not have access to dental care?: No Was dental information given to patient?: Patient has dentist HPI HPI Comments History of Present Illness Details This is a 73-year-old male with hypertension, hypothyroidism and paroxysmal atrial fibrillation that comes today for follow-up on his conditions. Blood pressure stable. TSH normal. Atrial fibrillation is follow by cardiology and is on chronic anticoagulation. Denies any active bleeding. No chest pain or shortness of breath. Has bicytopenia with low white blood cells and low hemoglobin. Will be referred to Hematology-Oncology for that matter. Denies any fatigue or tiredness or night sweats. [facility] Medical History (Updated 08/05/23 @ 15:00 by Lata Pritchett MD) Physical exam Hypovitaminosis D BENNIE (obstructive sleep apnea) Gout Other and unspecified hyperlipidemia PAF (paroxysmal atrial fibrillation) Afib BPH (benign prostatic hyperplasia) Current use of fdc anticoagulation Hypothyroidism Dyslipidemia Essential hypertension Surgical History No pertinent past surgical history Family History Father Alzheimer disease Mother Arthritis Other Mental health problem Social History Household Members: Other Household Members Other:: daughter Housing: Apartment Alcohol intake: current Alcohol intake frequency: holidays/special occasions only Alcohol type: beer Patient Tobacco Use Status: Never used Tobacco e-Cigarette/Vaping Use: Never Used Second Hand Smoke Exposure: No service: No Current occupational status: retired and disabled Cognitive needs: No Hearing needs: No Vision needs: Yes Questionnaire Thrive Questionnaire Date Thrive assessed: 10/25/22 MICHAEL-7 AMB Questionnaire MICHAEL-7 Date MICHAEL - 7 assessed: 10/25/22 Source: Developed by Drs. Colton Yañez, Lilia Louis, Fili Echevarria and colleagues, with an educational mesfin from [employer]. Review of Systems Const All systems reviewed & are unremarkable except as noted in HPI and below Eyes Reports no additional complaints, Denies change in vision and Denies other visual disturbances Card Denies chest pain at rest, Denies chest pain with activity, Denies edema, Denies irregular heart rhythm, Denies claudication, Denies dyspnea, Denies dyspnea on exertion, Denies orthopnea, Denies paroxysmal nocturnal dyspnea and Denies slow heart rate Resp Denies cough, Denies dyspnea and Denies dyspnea on exertion GI Denies abdominal pain, Denies change in bowel habits, Denies excessive flatus, Denies nausea and Denies vomiting Denies urinary hesitancy, Denies urinary incontinence and Denies urinary urgency Musc Denies abnormal gait, Denies atrophy, Denies deformity and Denies limited range of motion Skin/Breast Denies bleeding lesions, Denies changing lesions and Denies rash Neuro Denies abnormal gait and Denies lack of coordination Physical exam (Primary Care) Vital Signs: Last Vital Signs Pulse 68 08/05/23 14:32 BP 130/80 08/05/23 14:32 Pulse Ox 99 08/05/23 14:32 Oxygen Delivery Method Room Air 08/05/23 14:32 BMI result Body Mass Index 24.3 Tobacco/Smoking Status: Tobacco use Status Tobacco use date assessed 10/25/22 08/05/23 14:39 Patient Tobacco Use Status Never used Tobacco 08/05/23 14:39 e-Cigarette/Vaping Use Never Used 08/05/23 14:39 Thrive Assessment: Date of Thrive Assessment Date Thrive assessed 10/25/22 08/05/23 14:39 Eyes General: appearance normal, both eyes and all related structures Eyelids: Yes eyelids normal Conjunctivae: conjunctivae normal Neck Neck: Yes normal visual inspection and Yes supple Resp Effort & Inspection: normal respiratory effort Auscultation: clear to auscultation bilaterally Cardio Jugular venous distension: no JVD Rate: regular rate Rhythm: regular rhythm Heart sounds: S1 normal heart sound present and S2 normal heart sound present Extrem General: Yes full ROM Assessment and Plan Assessment & Plan (1) PAF (paroxysmal atrial fibrillation): Code(s): I48.0 - Paroxysmal atrial fibrillation Plan: Continue metoprolol and Xarelto. Follow-up with Cardiology. The goal is heart rate control. (2) Essential hypertension: Code(s): I10 - Essential (primary) hypertension Plan: Continue losartan. Blood pressure goal is equal or less than 130/80. (3) Hypothyroidism: Code(s): E03.9 - Hypothyroidism, unspecified Qualifiers: Hypothyroidism type: unspecified Qualified Code(s): E03.9 - Hypothyroidism, unspecified Plan: Continue levothyroxine. Monitor TSH. (4) Bicytopenia: Code(s): D75.89 - Other specified diseases of blood and blood-forming organs Plan: Referred to Hematology-Oncology. Orders: Referrals Hematology & Oncology Referral D75.89 - Other specified diseases of blood and blood-forming organs Medications: Refilled metoprolol succinate ER 25 mg PO DAILY 90 days 90 tabs 1RF losartan 25 mg PO DAILY 90 days 90 tabs 1RF rivaroxaban (Xarelto) must administer with evening meal 20 mg PO DAILY 90 days 90 tabs 1RF Coding Level of Care Code Est Pt Level 4 (74281) Diagnoses PAF (paroxysmal atrial fibrillation) I48.0 Essential hypertension I10 Hypothyroidism, unspecified type E03.9 Hypothyroidism type: unspecified Bicytopenia D75.89 Time Spent (min) 23
== END 2023-08-05 14:55 | disposition home or self-care (01) ==
PROVIDERS: PCP Internal Medicine; Visit Provider Internal Medicine
DX: I48.0 Paroxysmal atrial fibrillation (principal); I10 Essential (primary) hypertension; E03.9 Hypothyroidism, unspecified; D75.89 Other specified diseases of blood and blood-forming organs
CPT/HCPCS: 99214

== ENCOUNTER → 2023-08-26 10:36 | Outpatient (BNV) | payer MEDICARE, MEDICAID, SELFPAY | PROVIDERS: PCP Internal Medicine; Visit Provider Internal Medicine Medical Oncology | DX: D61.818 Other pancytopenia (principal) | CPT/HCPCS: 99204; 99213 ==

== ENCOUNTER 2023-11-21 14:00 | Outpatient (AMB) | payer MEDICARE, MEDICAID, SELFPAY ==
[2023-11-21 14:05] VITALS: BP 153/84; PULSE 63; BMI 25.2
--- NOTE | 2023-11-21 14:05 | MHC.OFFVIS ---
Intake Vital Signs 11/21/23 14:05 Height 5 ft 7 in Weight 160 lb 14.999 oz BMI 25.2 BP 153/84 H Blood Pressure Location Rt brachial Position Sitting Pulse 63 Intake Visit Reasons: [place] Screening Per Dr. Nevarez Intake Note: Patient presents to in office visit today as a new patient for colonoscopy screening. CC: Patient reports that his last colonoscopy was done in [place] in 2019. Patient reports occasional constipation. Denies other GI symptoms today. Allergies No Known Allergies Allergy (Verified 11/21/23 14:13) HPI [place] Screening Per Dr. Nevarez HPI Details 73-year-old male with past medical history of bicytopenia, osteoarthritis, polyarthralgia BENNIE on CPAP, valvular heart, ascending aorta enlargement, hypertension, hypothyroidism, BPH, PAF, hyperlipidemia is here today for initial consultation. Patient was sent to our office by his jogger operator. Last colonoscopy in [place] in 2019. Patient denies any issues with anesthesia then. Currently patient is taking Xarelto daily. Reports to have constipation. Does not move his bowels daily. Patient denies melena, hematochezia, unintentional weight loss or ribbon like stools. Patient denies any dyspepsia, dysphagia or odynophagia. Patient denies any other GI concerning symptoms. Patient is being followed with Cardiology for PAF and for ascending aorta enlargement at 4 cm stable last check in January of 2023. Patient will have appointment with functional tester typewriters in January and we can ask for risk stratification before sending patient for procedure. 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 Hypothyroidism Dyslipidemia Essential hypertension Surgical History H/O colonoscopy Family History Father Alzheimer disease Mother Arthritis Other Mental health problem Social History Household Members: Other Household Members Other:: daughter Housing: Apartment Alcohol intake: current Alcohol intake frequency: holidays/special occasions only Alcohol type: beer Patient Tobacco Use Status: Never used Tobacco e-Cigarette/Vaping Use: Never Used Second Hand Smoke Exposure: No service: No Current occupational status: retired and disabled Cognitive needs: No Hearing needs: No Vision needs: Yes Review of Systems Const Denies weight gain and Denies weight loss ENT Reports no additional complaints, Denies dysphagia and Denies odynophagia Card Reports no additional complaints Resp Reports no additional complaints GI Denies abdominal pain, Denies belching, Denies melena, Denies bloating, Denies change in bowel habits, Reports constipation, Denies dysphagia, Denies excessive flatus, Denies dyspepsia, Denies heartburn, Denies diarrhea, Denies loose stools, Denies nausea, Denies odynophagia and Denies vomiting Reports no additional complaints Musc Reports no additional complaints Neuro Reports no additional complaints Psych Reports no additional complaints Endo Reports no additional complaints Physical Exam Vital Signs: Last Vital Signs Pulse 63 11/21/23 14:05 BP 153/84 H 11/21/23 14:05 BMI result Body Mass Index 25.2 Const General: healthy appearing, no acute distress and well developed Nutritional Appearance: well nourished Orientation/consciousness: patient oriented x3 Resp Effort & Inspection: normal respiratory effort, able to speak in complete sentences, no tracheal deviation and symmetric chest movement Auscultation: clear to auscultation bilaterally Cardio Rate: regular rate GI Inspection: Yes normal to inspection and No distended Palpation (GI): Soft to palpation, not firm, nontender and No hepatosplenomegaly present Auscultation: normal bowel sounds General: Yes no CVA tenderness Back/Spine/Pelvis Back: no CVA tenderness Skin General skin exam: elasticity normal, turgor normal and dry skin Neuro General: patient oriented x3 Psych Appearance: grossly normal Mental Status: mental status grossly normal Assessment & Plan Assessment & Plan (1) Screen for colon cancer: Code(s): Z12.11 - Encounter for screening for malignant neoplasm of colon (2) Constipation: Code(s): K59.00 - Constipation, unspecified Qualifiers: Constipation type: slow transit constipation Qualified Code(s): K59.01 - Slow transit constipation Plan Patient can take Colace daily. Patient was also encouraged to increase fluid intake and activity to promote better bowel motility. What to expect before during and after the procedure discussed with patient. Clear liquid diet day before procedure as well as good bowel prep stressed with patient. Patient denies any issues with anesthesia in the past. History of sleep apnea, on CPAP. Patient is taking Xarelto will ask when to hold it. Cardiology appointment in January will ask for risk stratification before sending patient for procedure. Maybe procedure end of February. Currently patient denies any cardiac or respiratory symptoms. Blood pressure little elevated today, however patient reports that his pressure is usually stable. I will see patient after the procedure, sooner on as needed basis. Patient is agreeable to this plan and verbalizes understanding of instructions. He was given the opportunity to ask questions and all questions answered. Thank you for allowing me to participate in his care Medications: New docusate sodium 100 mg PO DAILY 30 caps 3RF K59.00 - Constipation, unspecified polyethylene glycol 3350 (Miralax) As directed by gastroenterology department at [facility] 238 grams PO ONCE 238 grams 0RF Z12.11 - Encounter for screening for malignant neoplasm of colon bisacodyl (Dulcolax (bisacodyl)) take 4 tabs at noon the day before your colonoscopy 20 mg (4 x 5 mg) PO ONCE 1 day 4 tabs 0RF Z12.11 - Encounter for screening for malignant neoplasm of colon Coding Level of Care Code New Pt Level 3 (58325) Diagnoses Screen for colon cancer Z12.11 Slow transit constipation K59.01 Constipation type: slow transit constipation Time Spent (min) 40 Comment 40 minutes spent with patient and additional 10 minutes spent reviewing his records
== END 2023-11-21 15:06 | disposition home or self-care (01) ==
PROVIDERS: PCP Internal Medicine; Visit Provider Nurse Practitioner Family
DX: K59.01 Slow transit constipation (principal); Z12.11 Encounter for screening for malignant neoplasm of colon
CPT/HCPCS: 99203; 99213

== ENCOUNTER → 2023-11-21 14:00 | Outpatient (BNVA) | payer MEDICARE, MEDICAID, SELFPAY | PROVIDERS: PCP Internal Medicine; Visit Provider Nurse Practitioner Family | DX: Z01.818 Encounter for other preprocedural examination (principal); K59.01 Slow transit constipation | CPT/HCPCS: 99202 ==

== ENCOUNTER 2023-12-23 12:37 | Outpatient (AMB) | payer MEDICARE, MEDICAID, SELFPAY ==
[2023-12-23 12:47] VITALS: BP 128/82; BMI 25.5
--- NOTE | 2023-12-23 12:47 | MHC.PC.OV ---
Vital Signs 12/23/23 12:47 Height 5 ft 7 in Weight 163 lb BMI 25.5 BP 128/82 Blood Pressure Location Lt brachial Position Sitting Intake Visit Reasons: PE Intake Note: Patient here for a physical exam Residential Manager Required: No Accompanied by: Self / Same As Patient Allergies No Known Allergies Allergy (Verified 12/23/23 13:08) Medication List - Last Reconciled 12/23/23 by Lata Pritchett MD atorvastatin 10 mg PO DAILY 90 days bethanechol chloride 25 mg PO BID 90 days bisacodyl (Dulcolax (bisacodyl)) 20 mg (4 x 5 mg) PO ONCE 1 day docusate sodium 100 mg PO DAILY levothyroxine 25 mcg PO DAILY 90 days losartan 25 mg PO DAILY 90 days metoprolol succinate ER 25 mg PO DAILY 90 days polyethylene glycol 3350 (Miralax) 238 grams PO ONCE rivaroxaban (Xarelto) 20 mg PO DAILY 90 days tamsulosin 0.4 mg PO DAILY 90 days Tobacco use date assessed: 12/23/23 Fall risk assessment: No Falls in past year Last assessed Fall Risk: 12/23/23 Dental Screening Dental Screen Date: 12/23/23 Did you have a dental visit in the last 12 months?: Yes Did you have a dental problem in the last 6 months where you did not have access to dental care?: No Was dental information given to patient?: Patient has dentist HPI HPI Comments History of Present Illness Details This is a 73-year-old female with paroxysmal atrial fibrillation that comes for his physical exam. Colonoscopy done 2019 was normal. No chest pain or shortness of breath. Compliant with medications. No active bleeding. 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 Hypothyroidism Dyslipidemia Essential hypertension Surgical History H/O colonoscopy Family History Father Alzheimer disease Mother Arthritis Other Mental health problem Social History Household Members: Other Household Members Other:: daughter Housing: Apartment Alcohol intake: current Alcohol intake frequency: holidays/special occasions only Alcohol type: beer Patient Tobacco Use Status: Never used Tobacco e-Cigarette/Vaping Use: Never Used Second Hand Smoke Exposure: No service: No Current occupational status: retired and disabled Cognitive needs: No Hearing needs: No Vision needs: Yes Questionnaire PHQ-9 Over the last 2 weeks, how often have you been bothered by any of the following problems? 1. Little interest or pleasure in doing things: not at all 2. Feeling down, depressed, or hopeless: more than half the days 3. Trouble falling or staying asleep, or sleeping too much: several days 4. Feeling tired or having little energy: several days 5. Poor appetite or overeating: several days 6. Feeling bad about yourself - or that you are a failure or have let yourself or your family down: not at all 7. Trouble concentrating on things, such as reading the newspaper or watching television: not at all 8. Moving or speaking so slowly that other people could have noticed. Or the opposite - being so fidgety or restless that you have been moving around a lot more than usual: not at all 9. Thoughts that you would be better off or of hurting yourself in some way: not at all Total score: 5 Depression Screening Interpretation: Positive Depression Screening Follow-up: Existing condition Depression Screening Done: Yes 63665 - PHQ-9 Billing: Yes Source: Developed by Drs. Colton Yañez, Lilia Louis, Fili Echevarria and colleagues, with an educational mesfin from [employer]. Thrive Questionnaire Date Thrive assessed: 12/23/23 I am a: Patient What is your living situation today?: I have a steady place to live Within the past 12 months, did the food you bought not last and you didn't have the money to get more?: Never true Within the past 12 months, did you worry whether your food would run out before you got money to buy more?: Never true Do you have trouble paying for medicines?: No Do you have trouble getting transportation to medical appointments?: No Do you have trouble paying your heating and electricity bill?: No Do you have trouble taking care of your child, family member or friend?: No Do you have trouble with day-to-day activities such as bathing, preparing meals, shopping, managing finances, etc.?: No Are you currently unemployed and looking for a job?: No Are you interested in more education?: No Please select the resources that you would like help with: None Currently or been in a relationship where the following occur: no concerns reported THRIVE Score: 0 AUDIT C Alcohol Use Questionnaire (AUDIT-C) 1. How often do you have a drink containing alcohol?: Monthly or less 2. How many drinks containing alcohol do you have on a typical day when you are drinking?: 1 or 2 3. How often do you have six or more drinks on one occasion?: Never Total Score: 1 Score Reviewed/Action Taken: No MICHAEL-7 AMB Questionnaire MICHAEL-7 Date MICHAEL - 7 assessed: 12/23/23 Feeling nervous, anxious, or on edge: 1 = Several days Not being able to stop or control worryin = Not at all Worrying too much about different things: 0 = Not at all Trouble relaxin = Not at all Being so restless that it is hard to sit still: 0 = Not at all Becoming easily annoyed or irritable: 0 = Not at all Feeling afraid as if something awful might happen: 1 = Several days Total MICHAEL-7 score (0-4 normal; 5-9 mild; 10-14 moderate; 15-21 severe): 2 Source: Developed by Drs. Colton Yañez, Lilia Louis, Fili Echevarria and colleagues, with an educational mesfin from [employer]. MICHAEL-7 Assessment Billing MICHAEL-7 Assessment Tool: MICHAEL-7 Assessment 40514 Review of Systems Const All systems reviewed & are unremarkable except as noted in HPI and below Eyes Reports no additional complaints, Denies change in vision and Denies other visual disturbances Card Denies chest pain at rest, Denies chest pain with activity, Denies edema, Denies irregular heart rhythm, Denies claudication, Denies dyspnea, Denies dyspnea on exertion, Denies orthopnea, Denies paroxysmal nocturnal dyspnea and Denies slow heart rate Resp Denies cough, Denies dyspnea and Denies dyspnea on exertion GI Denies abdominal pain, Denies change in bowel habits, Denies excessive flatus, Denies nausea and Denies vomiting Denies urinary hesitancy, Denies urinary incontinence and Denies urinary urgency Musc Denies abnormal gait, Denies atrophy, Denies deformity and Denies limited range of motion Skin/Breast Denies bleeding lesions, Denies changing lesions and Denies rash Neuro Denies abnormal gait, Denies behavioral changes, Denies confusion and Denies lack of coordination Psych Denies behavioral changes and Denies confusion Physical exam (Primary Care) Vital Signs: Last Vital Signs BP 128/82 12/23/23 12:47 BMI result Body Mass Index 25.5 Tobacco/Smoking Status: Tobacco use Status Tobacco use date assessed 12/23/23 12/23/23 12:53 Patient Tobacco Use Status Never used Tobacco 12/23/23 12:53 e-Cigarette/Vaping Use Never Used 12/23/23 12:53 PHQ-9: PHQ-9 Score PHQ-9: Total score 5 12/23/23 13:09 Depression Screening Interpretation: Positive Depression Screening Follow-up: Existing condition Thrive Assessment: Date of Thrive Assessment Date Thrive assessed 12/23/23 12/23/23 12:53 Currently or been in a relationship where the following occur: no concerns reported Const General: No confusion Orientation/consciousness: patient oriented x3 and No confusion HENMT Head: Yes normal to inspection, Yes normocephalic and Yes atraumatic Ears: external ears normal Eyes General: appearance normal, both eyes and all related structures Eyelids: Yes eyelids normal Conjunctivae: conjunctivae normal Neck Neck: Yes normal visual inspection and Yes supple Resp Effort & Inspection: normal respiratory effort Auscultation: clear to auscultation bilaterally Cardio Jugular venous distension: no JVD Rate: regular rate Rhythm: regular rhythm Heart sounds: S1 normal heart sound present and S2 normal heart sound present GI Inspection: Yes normal to inspection Palpation (GI): Soft to palpation and nontender Auscultation: normal bowel sounds Skin General skin exam: no rashes or lesions noted Neuro General: patient oriented x3, no focal motor deficits and No confusion Extrem General: Yes full ROM Psych Appearance: grossly normal Assessment and Plan Assessment & Plan (1) Physical exam: Code(s): Z00.00 - Encounter for general adult medical examination without abnormal findings Plan: Repeat in a year. (2) PAF (paroxysmal atrial fibrillation): Code(s): I48.0 - Paroxysmal atrial fibrillation Plan: Continue Xarelto. Follow-up with Cardiology. Orders: Orders Uric Acid Today M10.9 - Gout, unspecified Lipid Panel Today Z00.00 - Encounter for general adult medical examination without abnormal findings Thyroid Stimulating Hormone Today E03.9 - Hypothyroidism, unspecified Comprehensive [place]. Panel Fast Today Z00.00 - Encounter for general adult medical examination without abnormal findings Coding Level of Care Code Est Pt Prev Care >65y(99548) Diagnoses Physical exam Z00.00 PAF (paroxysmal atrial fibrillation) I48.0 Additional Codes MICHAEL-7 Assessment Billing - MICHAEL-7 Assessment Tool: MICHAEL-7 Assessment 61839 ([id number]) Time Spent (min) 33
== END 2023-12-23 13:19 | disposition home or self-care (01) ==
PROVIDERS: Visit Provider Internal Medicine
DX: Z00.00 Encounter for general adult medical examination without abnormal findings (principal); I48.0 Paroxysmal atrial fibrillation; E03.9 Hypothyroidism, unspecified; E78.5 Hyperlipidemia, unspecified
CPT/HCPCS: 99397

== ENCOUNTER 2023-12-25 08:07 | Outpatient (REF) | payer MEDICARE, MEDICAID, SELFPAY ==
[2023-12-25 09:39] LABS: Alanine Aminotransferase 21 U/L (0-40); Albumin Level 4.4 g/dL (3.5-5.0); Alkaline Phosphatase 59 U/L (39-117); Anion Gap 11 (12-20); Aspartate Amino Transferase 20 U/L (5-37); Bilirubin Total 1.1 mg/dL (0.0-1.0); Blood Urea Nitrogen 11 mg/dL (9-16); Calcium 9.6 mg/dL (8.4-10.2); Carbon Dioxide 28 mmol/L (22-29); Chloride 103 mmol/L (96-108); Cholesterol 211 mg/dL (<200); Estimated Glomerular Filt Rate > 60; Glucose Fasting 93 mg/dL (60-99); HDL Cholesterol 70 mg/dL (>40); LDL Cholesterol Calculated 113 mg/dL (<100); Potassium 4.7 mmol/L (3.3-5.1); Sodium 137 mmol/L (135-145); Total Protein 7.3 g/dL (6.5-8.0); Triglycerides 144 mg/dL (<150)
== END 2023-12-25 08:08 | disposition home or self-care (01) ==
LOC: HO.LAB 08:07
PROVIDERS: PCP Internal Medicine; Visit Provider Internal Medicine
DX: Z00.00 Encounter for general adult medical examination without abnormal findings (principal); M10.9 Gout, unspecified; E03.9 Hypothyroidism, unspecified
CPT/HCPCS: 36415; 80053; 80061; 84443; 84550

== ENCOUNTER 2024-02-10 06:44 | Outpatient (REF) | payer MEDICARE, MEDICAID, SELFPAY ==
[2024-02-10 08:51] LABS: Prostate Specific Antigen 1.29 ng/mL (<0.05-4.0)
== END 2024-02-10 06:45 | disposition home or self-care (01) ==
LOC: HO.LAB 06:44
PROVIDERS: PCP Internal Medicine; Visit Provider Nurse Practitioner Family
DX: Z12.5 Encounter for screening for malignant neoplasm of prostate (principal); N40.0 Benign prostatic hyperplasia without lower urinary tract symptoms; R33.9 Retention of urine, unspecified
CPT/HCPCS: 36415; 51798; 81003; 84153; 99212

== ENCOUNTER 2024-02-10 12:19 | Outpatient (AMB) | payer MEDICARE, MEDICAID, SELFPAY ==
--- NOTE | 2024-02-10 13:04 | A.OFFVIS_ITS ---
Intake Visit Reasons: 1yr follow up/PSA Intake Note: Patient is present for follow up PSA/BPH PSA: 1.29 Urology Med: Bethanechol, Tamsulosin Blood Thinner: Xarelto PVR: 34ml's Development And Housing Director Required: Yes Accompanied by: Daughter Allergies No Known Allergies Allergy (Verified 02/10/24 13:38) Medication List - Last Reconciled 02/10/24 by BRANDON Iglesias-ONESIMO atorvastatin 10 mg PO DAILY 90 days bethanechol chloride 25 mg PO BID 90 days bisacodyl (Dulcolax (bisacodyl)) 20 mg (4 x 5 mg) PO ONCE 1 day docusate sodium 100 mg PO DAILY levothyroxine 25 mcg PO DAILY 90 days losartan 25 mg PO DAILY 90 days metoprolol succinate ER 25 mg PO DAILY 90 days polyethylene glycol 3350 (Miralax) 238 grams PO ONCE rivaroxaban (Xarelto) 20 mg PO DAILY 90 days tamsulosin 0.4 mg PO DAILY 90 days HPI Comments Details: Michael is a very pleasant 74-year-old Maldivian-speaking male patient of Dr. Torre who was accompanied by his daughter at today's office visit. Has a past medical history of ascending aortic enlargement, obstructive sleep apnea, gout, paroxysmal AFib on anticoagulation, BPH, dyslipidemia, hypothyroidism, and hypertension. Presents to the office today for follow-up of his lower urinary tract symptoms. In discussion with the patient is daughter today he reports to be doing and feeling well. He denies any bothersome urinary issues or concerns. Recent PSA results reviewed with the patient today as noted and trended below: PSA: 02/09 1.3, 02/10 1.4, 02/11 1.3. In office urinalysis results reviewed with the patient today. PVR 34ml's. He denies urinary urgency, urinary frequency, incontinence, nocturia, hematuria, dysuria, foul smelling urine, changes to urinary stream, flank pain, fever, and or chills. When asked he reports be happy with current voiding parameters. He reports compliance with Flomax and bethanechol as prescribed. He otherwise offers no other issues or concerns at this time. Lower urinary tract symptoms Has been taking medication since 2019 Current medications tamsulosin with bethanechol Initially started after episode of urinary retention in [place] Current symptoms - minimal - weak stream, minimal nocturia, minimal bother Investigations - none PSA - 02/10 1.4 Therapeutic plan - remain on medications and repeat PSA in 12 months. [facility] Medical History Ascending aorta enlargement Physical exam Hypovitaminosis D BENNIE (obstructive sleep apnea) Gout Other and unspecified hyperlipidemia PAF (paroxysmal atrial fibrillation) Afib BPH (benign prostatic hyperplasia) Current use of detention anticoagulation Hypothyroidism Dyslipidemia Essential hypertension Surgical History H/O colonoscopy Family History Father Alzheimer disease Mother Arthritis Other Mental health problem Social History Household Members: Other Household Members Other:: daughter Housing: Apartment Alcohol intake: current Alcohol intake frequency: holidays/special occasions only Alcohol type: beer Patient Tobacco Use Status: Never used Tobacco e-Cigarette/Vaping Use: Never Used Second Hand Smoke Exposure: No service: No Current occupational status: retired and disabled Cognitive needs: No Hearing needs: No Vision needs: Yes Review of Systems Const Reports no additional complaints Eyes Reports no additional complaints ENT Reports no additional complaints Card Reports as per HPI Resp Reports as per HPI GI Reports no additional complaints Reports as per HPI Musc Reports no additional complaints Neuro Reports no additional complaints Psych Reports no additional complaints Endo Reports as per HPI Physical Exam Const General: cooperative, healthy appearing, comfortable, no acute distress, well developed, alert and awake Orientation/consciousness: patient oriented x3 Limitations: no limitations HEENT Head: Yes normal to inspection, Yes normocephalic and Yes atraumatic Ears: hearing grossly normal bilaterally Eyes General: appearance normal, both eyes and all related structures Neck Neck: Yes normal visual inspection and Yes trachea midline Chest Chest palpation & inspection: normal inspection of the chest Resp Effort & Inspection: normal respiratory effort and able to speak in complete sentences Cardio Rate: regular rate GI Inspection: Yes normal to inspection General: Yes no CVA tenderness Back/Spine/Pelvis Back: no CVA tenderness Skin General skin exam: no rashes or lesions noted Neuro General: patient oriented x3 Extrem General: Yes normal to inspection Psych Appearance: grossly normal and well kempt Mental Status: mental status grossly normal Speech and movement: Normal speech and movement present and Clear speech present Affect: normal affect Attitude: cooperative Thought process: Normal thought process present Thought content: Normal thought content present Insight: Fair insight present (Psych) Judgement: Fair judgement present (Psych) Office Procedures Post Void Residual Post Residual Void Post Void Residual (PVR): 34 [id number] Void Residual by ultrasound Results AMB Urinalysis, Automated UA Leukoctes 0 Vivian/uL Last Edit by Song Mahmood on 02/10/24 13:18 UA Nitrite Negative Last Edit by Song Mahmood on 02/10/24 13:18 UA Urobilinogen 0.2 mg/dL Last Edit by Joglidasha on 02/10/24 13:18 UA Protein 0 mg/dL Last Edit by [employer]que [employer] Kidsdasha on 02/10/24 13:18 UA pH 6.0 Last Edit by Song Mahmood on 02/10/24 13:18 UA Blood 10 Salvador/uL Last Edit by [employer] Mahmood on 02/10/24 13:18 UA Specific [place] 1.010 Last Edit by [employer] Mahmood on 02/10/24 13:18 UA Ketone Negative Last Edit by Joglidasha on 02/10/24 13:18 UA Bilirubin 0 mg/dL Last Edit by [employer] on 02/10/24 13:18 UA Glucose 0 mg/dL Last Edit by [employer] Mahmood on 02/10/24 13:18 Results Reviewed Results Reviewed: Laboratory Last Values Urine pH (Auto) 6.0 02/10/24 13:11 Specific [place] (Auto) 1.010 02/10/24 13:11 Urine Protein (Auto) 0 mg/dL 02/10/24 13:11 Glucose (UA)(Auto) 0 mg/dL 02/10/24 13:11 Urine Ketones (Auto) Negative 02/10/24 13:11 Urine Blood (Auto) 10 Salvador/uL 02/10/24 13:11 Urine Nitrite (Auto) Negative 02/10/24 13:11 Urine Bilirubin (Auto) 0 mg/dL 02/10/24 13:11 Urine Urobilinogen (Auto) 0.2 mg/dL 02/10/24 13:11 Leukocyte Esterase (Auto) 0 Vivian/uL 02/10/24 13:11 Assessment & Plan Assessment & Plan (1) Urinary retention with incomplete bladder emptying: Code(s): R33.9 - Retention of urine, unspecified Category: Medical (2) BPH (benign prostatic hyperplasia): Code(s): N40.0 - Benign prostatic hyperplasia without lower urinary tract symptoms Category: Medical Plan In office urinalysis results reviewed with the patient today; as noted above. PVR 34 mL. Continue bethanechol and Flomax as prescribed; refills provided. Patient currently denies any bothersome urinary issues or concerns. Patient reports be happy with current voiding parameters. Recent PSA results reviewed with the patient today; as noted above. Will obtain PSA in 1 year. Follow-up in 1 year with lab to be completed prior; or sooner with any issues, concerns, and or questions. Orders: Orders AMB Urinalysis Automated Today Z13.9 - Encounter for screening, unspecified Prostate Specific Antigen 1 Year N40.0 - Benign prostatic hyperplasia without lower urinary tract symptoms, R33.9 - Retention of urine, unspecified Prostate Specific Antigen Today Z12.5 - Encounter for screening for malignant neoplasm of prostate AMB Post Void Residual by ultrasound Today R33.9 - Retention of urine, unspecified Medications: Refilled tamsulosin 0.4 mg PO DAILY 90 days 90 caps 3RF N40.0 - Benign prostatic hyperplasia without lower urinary tract symptoms bethanechol chloride 25 mg PO BID 90 days 180 tabs 3RF N40.0 - Benign prostatic hyperplasia without lower urinary tract symptoms Patient Instructions: The patient had an opportunity to ask questions regarding the treatment plan. All questions were answered. Physical exam, labs, and imaging were discussed and reviewed in detail. As well as risks, benefits, and discussion of treatment choices. No major barriers to understanding were identified. The patient expressed understanding and agreement with the above treatment plan. The patient was made aware they should contact our office by phone for worsening of their current condition, the appearance of new symptoms, or with any questions or concerns. Compliance is encouraged with any medications and follow up testing that is ordered. It is a privilege to be allowed the opportunity to participate in? your urological care.? Again, if you have any questions or concerns If you have any questions or concerns please do not hesitate to contact me. The office is [phone]. This note is constructed using voice recognition software. While every effort has been made to ensure accuracy data collection specialist errors may have been included. Yours sincerely, SILVERIO IglesiasBC
== END 2024-02-10 13:41 | disposition home or self-care (01) ==
LOC: HO.HUSH 12:19
PROVIDERS: PCP Internal Medicine; Visit Provider Nurse Practitioner Family
DX: R33.9 Retention of urine, unspecified (principal); N40.0 Benign prostatic hyperplasia without lower urinary tract symptoms; Z13.9 Encounter for screening, unspecified
CPT/HCPCS: 99213

== ENCOUNTER 2024-02-11 12:25 | Outpatient (AMB) | payer MEDICARE, MEDICAID, SELFPAY ==
--- NOTE | 2024-02-11 12:52 | A.OFFVIS_ITS ---
Vital Signs 02/11/24 12:53 Height 5 ft 7 in Weight 161 lb 13.109 oz BMI 25.3 BP 140/68 H Blood Pressure Location Lt brachial Position Sitting Pulse 57 Intake Visit Reasons: 1 year fu/ clear for colonoscopy Online Marketing Analyst Required: No Online Marketing Analyst Name: lucrecia daughter/ Accompanied by: Daughter Allergies No Known Allergies Allergy (Verified 02/10/24 13:38) Medication List - Last Reconciled 02/11/24 by Oliverio Starks MD atorvastatin 10 mg PO DAILY 90 days bethanechol chloride 25 mg PO BID 90 days bisacodyl (Dulcolax (bisacodyl)) 20 mg (4 x 5 mg) PO ONCE 1 day docusate sodium 100 mg PO DAILY levothyroxine 25 mcg PO DAILY 90 days losartan 25 mg PO DAILY 90 days metoprolol succinate ER 25 mg PO DAILY 90 days polyethylene glycol 3350 (Miralax) 238 grams PO ONCE rivaroxaban (Xarelto) 20 mg PO DAILY 90 days tamsulosin 0.4 mg PO DAILY 90 days HPI Comments Details: Michael returns for follow-up. History of paroxysmal atrial fibrillation, supposedly noted initially in [place] but no recent issues. He remains on Xarelto. Low-dose beta-blockers. No other major cardiac issues. Overall, feeling good. Daughter is the high pressure firer and appropriate form signed. [facility] Medical History Ascending aorta enlargement Physical exam Hypovitaminosis D BENNIE (obstructive sleep apnea) Gout Other and unspecified hyperlipidemia PAF (paroxysmal atrial fibrillation) Afib BPH (benign prostatic hyperplasia) Current use of assisted anticoagulation Hypothyroidism Dyslipidemia Essential hypertension Surgical History H/O colonoscopy Family History Father Alzheimer disease Mother Arthritis Other Mental health problem Social History Household Members: Other Household Members Other:: daughter Housing: Apartment Alcohol intake: current Alcohol intake frequency: holidays/special occasions only Alcohol type: beer Patient Tobacco Use Status: Never used Tobacco e-Cigarette/Vaping Use: Never Used Second Hand Smoke Exposure: No service: No Current occupational status: retired and disabled Cognitive needs: No Hearing needs: No Vision needs: Yes Review of Systems Const Denies chills, Denies fatigue, Denies fever(s), Denies frequent falls, Denies weakness, Denies weight gain and Denies weight loss ENT Denies dizziness Card Denies chest pain, Denies leg edema, Denies lightheadedness, Denies palpitations, Denies dyspnea and Denies dyspnea on exertion Resp Denies cough, Denies dyspnea and Denies dyspnea on exertion GI Denies hematochezia Musc Denies abnormal gait, Denies muscle weakness, Denies numbness, Denies radiating pain into limb and Denies tingling Neuro Denies abnormal gait, Denies dizziness, Denies frequent falls, Denies numbness, Denies tingling and Denies weakness Endo Denies fatigue and Denies palpitations Physical Exam Vital Signs: Last Vital Signs Pulse 57 02/11/24 12:53 BP 140/68 H 02/11/24 12:53 BMI result Body Mass Index 25.3 Const General: comfortable and no acute distress Orientation/consciousness: patient oriented x3 HEENT Other: Unremarkable Head: Yes normal to inspection Neck Neck: Yes normal visual inspection Chest Chest palpation & inspection: normal inspection of the chest Resp Auscultation: clear to auscultation bilaterally Cardio Palpation: normal PMI Heart sounds: S1 normal heart sound present, S2 normal heart sound present, no gallops, no murmurs and no rubs GI Palpation (GI): Soft to palpation Back/Spine/Pelvis Other: unremarkable Skin General skin exam: no rashes or lesions noted Neuro General: patient oriented x3 Extrem General: Yes normal to inspection Psych Mental Status: mental status grossly normal Office Procedures EKG Details: EKG with sinus bradycardia at 57/Min; no significant ST-T changes and otherwise unremarkable. [place]. [id number], Complete Assessment & Plan Assessment & Plan (1) PAF (paroxysmal atrial fibrillation): Code(s): I48.0 - Paroxysmal atrial fibrillation Category: Medical Plan: No recent issues. Continue beta-blockers and Xarelto. (2) Valvular heart disease: Code(s): I38 - Endocarditis, valve unspecified Category: Medical Plan: Trace to mild aortic regurgitation on the echocardiogram. Not hemodynamically significant. (3) Ascending aorta enlargement: Code(s): I77.89 - Other specified disorders of arteries and arterioles Category: Medical Plan: Stable at 4 cm. Recheck before next visit. (4) Essential hypertension: Code(s): I10 - Essential (primary) hypertension Category: Medical Plan: Borderline blood pressure. On losartan. It seems they do check home blood pressures but extremely vague answers. Daughter states patient is forgetful and cannot remember. No changes made. (5) Preoperative cardiovascular examination: Code(s): Z01.810 - Encounter for preprocedural cardiovascular examination Category: Medical Plan: Low cardiac risk for colonoscopy. Okay to hold Xarelto for 2 doses prior to procedure. Plan Discussed with daughter. Orders: Orders CA echo transthoracic complete 1 Year I77.89 - Other specified disorders of arteries and arterioles Coding Level of Care Code Est Pt Level 4 (41536) Diagnoses PAF (paroxysmal atrial fibrillation) I48.0 Valvular heart disease I38 Ascending aorta enlargement I77.89 Essential hypertension I10 Preoperative cardiovascular examination Z01.810 CPT Codes EKG - CPT: 01272-[id number], Complete ([id number])
[2024-02-11 12:53] VITALS: BP 140/68; PULSE 57; BMI 25.3
== END 2024-02-11 13:17 | disposition home or self-care (01) ==
PROVIDERS: Visit Provider Internal Medicine
DX: I48.0 Paroxysmal atrial fibrillation (principal); I38 Endocarditis, valve unspecified; I77.89 Other specified disorders of arteries and arterioles; I10 Essential (primary) hypertension; Z01.810 Encounter for preprocedural cardiovascular examination
CPT/HCPCS: 93010; 99214

== ENCOUNTER → 2024-02-11 12:25 | Outpatient (BNVA) | payer MEDICARE, MEDICAID, SELFPAY | PROVIDERS: Visit Provider Internal Medicine | DX: Z01.810 Encounter for preprocedural cardiovascular examination (principal); I48.0 Paroxysmal atrial fibrillation; I38 Endocarditis, valve unspecified; I77.89 Other specified disorders of arteries and arterioles; I10 Essential (primary) hypertension | CPT/HCPCS: 93005; 99212 ==

== ENCOUNTER 2024-03-18 06:40 | Day surgery (SDC) | payer MEDICARE, MEDICAID, SELFPAY ==
--- NOTE | 2024-03-18 05:52 | P.HPSUR_ITS ---
Pre-Procedural Eval Section A - 24 Hr Update-Section A only Date of Service: 03/18/24 Section B - Complete if H&P > 30 days Chief Complaint: Constipation, unspecified Relevant Family History (Specify if Yes): No Relevant Social History: None Present Medications: see Short Stay Collaborative assessment Medical History: Significant History (Hypovitaminosis D BENNIE (obstructive sleep apnea) Gout Other and unspecified hyperlipidemia PAF (paroxysmal atrial fibrillation) Afib BPH (benign prostatic hyperplasia) Current use of correction anticoagulation Hypothyroidism Dyslipidemia Essential hypertension) History of Previous Operations: Relevant previous surgery/procedure and date(s) (colonoscopy) Allergies: Allergies Allergy/AdvReac Type Severity Reaction Status Date / Time No Known Allergies Allergy Verified 02/10/24 13:38 Review of Systems Sugical H&P ROS: Negative: Constitution, Cardiovascular, Respiratory, Neurological, Psychiatric, Hem-Onc, Allergic/Immunologic, Gastrointestinal, Genitourinary, Musculoskeletal, Integumentary, Endocrine and Eyes/Ear s/Nose/Throat Exam Surgical H&P Exam: Normal: HEENT, Normal: Heart, Normal: Lungs, Normal: Extremities, Normal: Abdomen, Normal: Skin and Normal: Neurological Plan Diagnosis/Plan: Unchanged I have reviewed the history and physical and performed a pertinent physical examination on my patient. No changes have occurred unless specified. Time Spent With Patient Time: Total time managing care of this patient today ____ minutes.
[2024-03-18 07:31] VITALS: BMI 24.9
[2024-03-18] MEDS: Lactated Ringers 1,000 ML 80 ML IVCONT (07:47)
[2024-03-18 07:51] VITALS: BP 134/74; PULSE 67; RESP 18; TEMP 36.6; O2SAT 99
--- NOTE | 2024-03-18 08:26 | HO.OPN-COLON ---
Colonoscopy Operative Note Operative Note Date of Service: 03/18/24 Narrative: Operative Information Procedure Description: Colonoscopy Indication: screening Anesthesia: MAC COLONOSCOPY Instrument: Olympus variable stiffness pediatric scope 190L Colonoscopy Monitoring: Vital signs and clinical assessment, continuous EKG monitoring, Pulse oximetry, Carbon Dioxide monitoring and blood pressure monitoring were done throughout the procedure. Colon withdrawal time was 7 minutes. Procedure: The patient was placed in the left lateral decubitis position and pre-procedure medications were administered. After a digital rectal examination of the ano-rectum, the video colonoscope was inserted into the rectum and advanced through the colon to the cecum/TI. The colonoscope was slowly withdrawn in a retrograde panoramic fashion and the colon mucosa was carefully examined including a retroflexed view of the rectum. Findings and interventions are described below. Procedure Difficulty: easy Findings: Terminal Ileum-normal Cecum:normal Ascending Colon: normal Transverse Colon -normal Descending Colon:normal Sigmoid Colon: normal Rectum: Retroflexion with medium sized internal hemorrhoids seen, grade I Anorectum - normal Intervention: none Colon preparation: [place] Bowel Preparation Scale Right colon; 2 Transverse colon: 2 Left colon; 1-2 (0 = Unprepared colon segment with mucosa not seen due to solid stool that cannot be cleared. 1 = Portion of mucosa of the colon segment seen, but other areas of the colon segment not well seen due to staining, residual stool and/or opaque liquid. 2 = Minor amount of residual staining, small fragments of stool and/or opaque liquid, but mucosa of colon segment seen well. 3 = Entire mucosa of colon segment seen well with no residual staining, small fragments of stool or opaque liquid) Impression and Post Procedure Diagnosis: diverticulosis colon polyps internal hemorrhoids Plan: High fiber diet leaflet Avoid straining at stool, epsom salts and sitz bath, anusol supps or cream Repeat Colonoscopy in 3-4 years due to fair prep on left (ate chicken yesterday) or earlier if clinically indicated Above findings were reviewed with the patient and relevant handouts were provided if indicated.
--- NOTE | 2024-03-18 08:43 | HO.ANESPROP2 ---
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 (Acute) BPH (benign prostatic hyperplasia) (Acute) Afib (Acute) PAF (paroxysmal atrial fibrillation) (Acute) Other and unspecified hyperlipidemia (Acute) Past Medical History Medical History Ascending aorta enlargement Physical exam Hypovitaminosis D BENNIE (obstructive sleep apnea) Gout Other and unspecified hyperlipidemia PAF (paroxysmal atrial fibrillation) Afib BPH (benign prostatic hyperplasia) Current use of shelter anticoagulation Hypothyroidism Dyslipidemia Essential hypertension Family History Family History Father Alzheimer disease Mother Arthritis Other Mental health problem Family history of problems with anesthesia: No Surgical History Surgical History H/O colonoscopy History of Problems with Anesthesia: No Social History Social History Household Members: Other Household Members Other:: daughter Housing: Apartment Alcohol intake: current Alcohol intake frequency: holidays/special occasions only Alcohol type: beer Patient Tobacco Use Status: Never used Tobacco e-Cigarette/Vaping Use: Never Used Second Hand Smoke Exposure: No Are you DNR?: No Advance Directives: No Advance Directives Information Provided: Yes Nutrition Risks: No Nutritional Risk service: No Current occupational status: retired and disabled Cognitive needs: No Hearing needs: No Vision needs: Yes Meds Allergies Allergy/AdvReac Type Severity Reaction Status Date / Time No Known Allergies Allergy Verified 03/18/24 07:34 Active Medications: Current Medications Lactated Ringer's (Lr) 1,000 mls @ 80 mls/hr IVCONT .[id number] JOSE Last Admin: 03/18/24 07:47 Dose: 80 mls/hr Exam Height,Weight and Vital Signs: Height 5 ft 7 in Weight 72.03 kg Last Vital Signs Temp 97.8 F 03/18/24 07:51 Pulse 67 03/18/24 07:51 Resp 18 03/18/24 07:51 BP 134/74 03/18/24 07:51 Pulse Ox 99 03/18/24 07:51 O2 Del Method Room Air 03/18/24 07:51 Airway Mallampati Class: II TM Dist: >3cm Neck ROM: Full Heart: rrr Lungs: cta Assessment and Plan Assessment Anesthesia Assessment: Anesthesia Plan Discussed and Chart Reviewed Final Anesthetic Review Family History of Problems with Anesthesia: No History of Problems with Anesthesia: No NPO: Yes ASA Class: III Final Preanesthetic Review: No Changes in Pt Med Stat, Meds/Allgs Chart Reviewed and Consent Obtained/Reviewed Patient Risk: Low Procedure Risk: Low Anesthetic Plan Anesthetic Plan: MAC: Disposition: Standard PACU
[2024-03-18 08:54] VITALS: BP 93/59; PULSE 69; RESP 16; TEMP 36.6; O2SAT 94
[2024-03-18 09:09] VITALS: BP 94/64; PULSE 56; RESP 16; O2SAT 94
[2024-03-18 09:23] VITALS: BP 135/81; PULSE 61; RESP 16; TEMP 36.7; O2SAT 97
== END 2024-03-18 09:51 | disposition home or self-care (01) ==
PROVIDERS: PCP Internal Medicine; Visit Provider Internal Medicine Gastroenterology
PROC: 0DJD8ZZ Inspection of Lower Intestinal Tract, Via Natural or Artificial Opening Endoscopic (ICD-10-PCS; CPT 45378; principal; 2024-03-18 08:30)
DX: Z12.11 Encounter for screening for malignant neoplasm of colon (principal); K57.30 Diverticulosis of large intestine without perforation or abscess without bleeding; K64.0 First degree hemorrhoids; K59.00 Constipation, unspecified; K59.01 Slow transit constipation; I10 Essential (primary) hypertension; E78.5 Hyperlipidemia, unspecified; I48.0 Paroxysmal atrial fibrillation; G47.33 Obstructive sleep apnea (adult) (pediatric); Z99.89 Dependence on other enabling machines and devices; Z79.01 Long term (current) use of anticoagulants
CPT/HCPCS: 45378; J2704

== ENCOUNTER → 2024-03-18 06:40 | Outpatient (BNV) | payer MEDICARE, MEDICAID, SELFPAY | PROVIDERS: PCP Internal Medicine; Visit Provider Internal Medicine Gastroenterology | DX: Z12.11 Encounter for screening for malignant neoplasm of colon (principal); K64.0 First degree hemorrhoids | CPT/HCPCS: G0121 ==

== ENCOUNTER 2024-04-02 12:15 | Outpatient (AMB) | payer MEDICARE, MEDICAID, SELFPAY ==
[2024-04-02 12:37] VITALS: BP 127/60; PULSE 72; BMI 24.2
--- NOTE | 2024-04-02 12:37 | A.OFFVIS_ITS ---
Vital Signs 04/02/24 12:37 Height 5 ft 7 in Weight 154 lb 12.232 oz BMI 24.2 BP 127/60 Blood Pressure Location Lt brachial Position Sitting Pulse 72 Intake Visit Reasons: s/p colon Intake Note: Michael presents to in office visit today s/p colonoscopy. CC: P.atient states that he is doing well and denies having any GI concerns Cardiology Nurse Practitioner Required: Yes Accompanied by: Daughter Allergies No Known Allergies Allergy (Verified 04/10/24 14:56) HPI HPI s/p colon: Details: LAST VISIT: Screen for colon cancer Constipation Plan Patient can take Colace daily. Patient was also encouraged to increase fluid intake and activity to promote better bowel motility. What to expect before during and after the procedure discussed with patient. Clear liquid diet day before procedure as well as good bowel prep stressed with patient. Patient denies any issues with anesthesia in the past. History of sleep apnea, on CPAP. Patient is taking Xarelto will ask when to hold it. Cardiology appointment in January will ask for risk stratification before sending patient for procedure. Maybe procedure end of February. Currently patient denies any cardiac or respiratory symptoms. Blood pressure little elevated today, however patient reports that his pressure is usually stable. I will see patient after the procedure, sooner on as needed basis. Patient is agreeable to this plan and verbalizes understanding of instructions. He was given the opportunity to ask questions and all questions answered. ? Thank you for allowing me to participate in his care Medications New docusate sodium 100 mg PO DAILY 30 caps 3RF K59.00 polyethylene glycol 3350 (Miralax) As directed by gastroenterology department at [facility] 238 grams PO ONCE 238 grams 0RF Z12.11 bisacodyl (Dulcolax (bisacodyl)) take 4 tabs at noon the day before your colonoscopy 20 mg (4 x 5 mg) PO ONCE 1 day 4 tabs 0RF Z12.11 COLONOSCOPY Findings: Terminal Ileum-normal Cecum:normal Ascending Colon: normal Transverse Colon -normal Descending Colon:normal Sigmoid Colon: normal Rectum: Retroflexion with medium sized internal hemorrhoids seen, grade I Anorectum - normal Intervention: none Colon preparation: Monroe Bowel Preparation Scale Right colon; 2 Transverse colon: 2 Left colon; 1-2 (0 = Unprepared colon segment with mucosa not seen due to solid stool that cannot be cleared. 1 = Portion of mucosa of the colon segment seen, but other areas of the colon segment not well seen due to staining, residual stool and/or opaque liquid. 2 = Minor amount of residual staining, small fragments of stool and/or opaque liquid, but mucosa of colon segment seen well. 3 = Entire mucosa of colon segment seen well with no residual staining, small fragments of stool or opaque liquid) Impression and Post Procedure Diagnosis: diverticulosis colon polyps internal hemorrhoids Plan: High fiber diet leaflet Avoid straining at stool, epsom salts and sitz bath, anusol supps or cream Repeat Colonoscopy in 3-4 years due to fair prep on left (ate chicken yesterday) or earlier if clinically indicated TODAY'S VISIT Patient is here today for follow-up. Patient is accompanied by his daughter who helps translating for him per patient's request. Patient denies any issues with prep, anesthesia or procedure itself. Patient apparently had chicken day before procedure and prep was suboptimal. Patient had no polyps, internal hemorrhoids and diverticulosis found. Colonoscopy was recommended to be repeated in 3-4 years. Patient reports to be doing well. Denies any GI concerning symptoms. Denies any melena, hematochezia. Denies dyspepsia, dysphagia or odynophagia. Patient reports that he has been moving his bowels well. Colonoscopy results discussed with patient and his daughter. TODAY'S VISIT: [facility] Medical History (Updated 04/10/24 @ 21:[address] [facility]) Diverticulosis Ascending aorta enlargement Physical exam Hypovitaminosis D BENNIE (obstructive sleep apnea) Gout Other and unspecified hyperlipidemia PAF (paroxysmal atrial fibrillation) Afib BPH (benign prostatic hyperplasia) Current use of skilled nursing anticoagulation Hypothyroidism Dyslipidemia Essential hypertension Surgical History H/O colonoscopy Family History Father Alzheimer disease Mother Arthritis Other Mental health problem Social History Household Members: Other Household Members Other:: daughter Housing: Apartment Alcohol intake: current Alcohol intake frequency: holidays/special occasions only Alcohol type: beer Patient Tobacco Use Status: Never used Tobacco e-Cigarette/Vaping Use: Never Used Second Hand Smoke Exposure: No service: No Current occupational status: retired and disabled Cognitive needs: No Hearing needs: No Vision needs: Yes Review of Systems Const Denies weight gain and Denies weight loss ENT Reports no additional complaints, Denies dysphagia and Denies odynophagia Card Reports no additional complaints Resp Reports no additional complaints GI Denies abdominal pain, Denies belching, Denies melena, Denies bloating, Denies change in bowel habits, Denies dysphagia, Denies excessive flatus, Denies dyspepsia, Denies heartburn, Denies diarrhea, Denies loose stools, Denies nausea, Denies odynophagia and Denies vomiting Reports no additional complaints Musc Reports no additional complaints Neuro Reports no additional complaints Psych Reports no additional complaints Endo Reports no additional complaints Physical Exam Vital Signs: Last Vital Signs Pulse 72 04/02/24 12:37 BP 127/60 04/02/24 12:37 BMI result Body Mass Index 24.2 Const General: healthy appearing, no acute distress and well developed Nutritional Appearance: well nourished Orientation/consciousness: patient oriented x3 Resp Effort & Inspection: normal respiratory effort, able to speak in complete sentences, no tracheal deviation and symmetric chest movement Auscultation: clear to auscultation bilaterally Cardio Rate: regular rate GI Inspection: Yes normal to inspection and No distended Palpation (GI): Soft to palpation, not firm, nontender and No hepatosplenomegaly present Auscultation: normal bowel sounds General: Yes no CVA tenderness Back/Spine/Pelvis Back: no CVA tenderness Skin General skin exam: elasticity normal, turgor normal and dry skin Neuro General: patient oriented x3 Psych Appearance: grossly normal Mental Status: mental status grossly normal Assessment & Plan Assessment & Plan (1) Status post colonoscopy: Code(s): Z98.890 - Other specified postprocedural states (2) Diverticulosis: Code(s): K57.90 - Diverticulosis of intestine, part unspecified, without perforation or abscess without bleeding Category: Medical (3) Internal hemorrhoids without complication: Code(s): K64.8 - Other hemorrhoids Plan As mentioned above in HPI patient had suboptimal prep, colonoscopy will need to be repeated in 3-4 years. Patient had no polyps, diverticulosis and internal hemorrhoids found. Patient was encouraged to increase fiber in his diet. Patient may also take [id number] probiotics. Sitz baths if trouble with hemorrhoids, however patient denies any issues at this time. He will follow-up on as needed basis. Both patient and his daughter are agreeable to plan of care and verbalizes understanding of instructions. They were given the opportunity to ask questions and all questions answered. Thank you for allowing me to participate in his care Coding Level of Care Code Est Pt Level 3 (18591) Diagnoses Status post colonoscopy Z98.890 Diverticulosis K57.90 Internal hemorrhoids without complication K64.8 Time Spent (min) 25 Comment 15 minutes spent with patient and additional 10 minutes spent reviewing his records
== END 2024-04-02 14:19 | disposition home or self-care (01) ==
PROVIDERS: PCP Internal Medicine; Visit Provider Nurse Practitioner Family
DX: Z98.890 Other specified postprocedural states (principal); K57.90 Diverticulosis of intestine, part unspecified, without perforation or abscess without bleeding; K64.8 Other hemorrhoids
CPT/HCPCS: 99213

== ENCOUNTER → 2024-04-02 12:15 | Outpatient (BNVA) | payer MEDICARE, MEDICAID, SELFPAY | PROVIDERS: PCP Internal Medicine; Visit Provider Nurse Practitioner Family | DX: K57.90 Diverticulosis of intestine, part unspecified, without perforation or abscess without bleeding (principal); K64.8 Other hemorrhoids; Z98.890 Other specified postprocedural states | CPT/HCPCS: 99212 ==

== ENCOUNTER 2024-04-06 09:21 | Emergency (ER) | payer MEDICARE, MEDICAID, SELFPAY ==
--- NOTE | ~2024-04-06 | US_ITS ---
EXAMINATION: US VENOUS ULTRASOUND WITH DOPPLER LOWER EXTREMITY, RIGHT CLINICAL INFORMATION: Right leg pain COMPARISON: None available. TECHNIQUE: Ultrasound of the deep veins is performed from the hip to the calf with compression sonography and color and pulse Doppler assessment. Spectral analysis with color-flow imaging is performed. FINDINGS: The common femoral vein is compressible and exhibits a normal phasic waveform; this suggests that the iliac veins are widely patent above. Within the proximal thigh, the visualized profunda femoris vein is normal. The examined greater saphenous vein and saphenofemoral junction are normal. Superficial femoral vein is patent in the proximal, mid and distal thigh. Popliteal vein is normal to the level of the trifurcation. On compression peters scale and color Doppler images, the visualized posterior tibial and peroneal veins of the calf are patent. No evidence of Mcknight's cyst. US/US venous duplex LE RT IMPRESSION: No evidence of deep vein thrombosis in the right lower extremity.
--- NOTE | ~2024-04-06 | XR_ITS ---
EXAMINATION: LEFT SHOULDER, LUMBOSACRAL SPINE, PELVIS AND RIGHT HIP CLINICAL INFORMATION: Left shoulder, low back and right hip pain COMPARISON: Lumbar spine and left hip dated 07/02/2023 TECHNIQUE: 3 views left shoulder, 3 views lumbar spine, single view pelvis with 2 additional views right hip FINDINGS: Shoulder: Some minimal degenerative changes are seen with some mild sclerosis at the inferior glenoid as well as over the greater tuberosity. No fractures, dislocations or rotator cuff calcification is seen Lumbar spine: Degenerative changes are seen in the lumbar spine most marked from L2 through L5. There is endplate sclerosis and osteophyte formation. Findings are most marked at L3-L4 where there is the most disc space narrowing as well as grade 1 retrolisthesis of L3 upon L4. No bony destructive lesions are seen. Pelvis and right hip: Minimal degenerative changes are present in both hips with some minimal supra-acetabular sclerosis without significant joint space narrowing, fractures or bony destructive lesions. XR/XR lumbar spine 2-3V IMPRESSION: 1. Degenerative changes in the lumbar spine most marked at L3-L4 with grade 1 retrolisthesis of L3 upon L4. 2. Minimal degenerative changes in the left shoulder and both hips.
--- NOTE | ~2024-04-06 | XR_ITS ---
EXAMINATION: LEFT SHOULDER, LUMBOSACRAL SPINE, PELVIS AND RIGHT HIP CLINICAL INFORMATION: Left shoulder, low back and right hip pain COMPARISON: Lumbar spine and left hip dated 07/02/2023 TECHNIQUE: 3 views left shoulder, 3 views lumbar spine, single view pelvis with 2 additional views right hip FINDINGS: Shoulder: Some minimal degenerative changes are seen with some mild sclerosis at the inferior glenoid as well as over the greater tuberosity. No fractures, dislocations or rotator cuff calcification is seen Lumbar spine: Degenerative changes are seen in the lumbar spine most marked from L2 through L5. There is endplate sclerosis and osteophyte formation. Findings are most marked at L3-L4 where there is the most disc space narrowing as well as grade 1 retrolisthesis of L3 upon L4. No bony destructive lesions are seen. Pelvis and right hip: Minimal degenerative changes are present in both hips with some minimal supra-acetabular sclerosis without significant joint space narrowing, fractures or bony destructive lesions. XR/XR hip RT w PEL1V IMPRESSION: 1. Degenerative changes in the lumbar spine most marked at L3-L4 with grade 1 retrolisthesis of L3 upon L4. 2. Minimal degenerative changes in the left shoulder and both hips.
--- NOTE | ~2024-04-06 | XR_ITS ---
EXAMINATION: LEFT SHOULDER, LUMBOSACRAL SPINE, PELVIS AND RIGHT HIP CLINICAL INFORMATION: Left shoulder, low back and right hip pain COMPARISON: Lumbar spine and left hip dated 07/02/2023 TECHNIQUE: 3 views left shoulder, 3 views lumbar spine, single view pelvis with 2 additional views right hip FINDINGS: Shoulder: Some minimal degenerative changes are seen with some mild sclerosis at the inferior glenoid as well as over the greater tuberosity. No fractures, dislocations or rotator cuff calcification is seen Lumbar spine: Degenerative changes are seen in the lumbar spine most marked from L2 through L5. There is endplate sclerosis and osteophyte formation. Findings are most marked at L3-L4 where there is the most disc space narrowing as well as grade 1 retrolisthesis of L3 upon L4. No bony destructive lesions are seen. Pelvis and right hip: Minimal degenerative changes are present in both hips with some minimal supra-acetabular sclerosis without significant joint space narrowing, fractures or bony destructive lesions. XR/XR shoulder LT min 2V IMPRESSION: 1. Degenerative changes in the lumbar spine most marked at L3-L4 with grade 1 retrolisthesis of L3 upon L4. 2. Minimal degenerative changes in the left shoulder and both hips.
[2024-04-06 09:26] VITALS: BP 124/71; PULSE 68; RESP 16; TEMP 36.6; O2SAT 98; BMI 24.6
--- NOTE | 2024-04-06 11:25 | ECG_ITS ---
Test Reason : LEFT SHOULDER PAIN Blood Pressure : / mmHG Vent. Rate : 058 BPM Atrial Rate : 058 BPM P-R Int : 158 ms QRS Dur : 094 ms QT Int : 402 ms P-R-T Axes : 060 051 049 degrees QTc Int : 394 ms Sinus bradycardia Minimal voltage criteria for LVH, may be normal variant ( Sokolow-Schulz ) Borderline ECG No previous ECGs available Referred By: Nam Alexis Electronically Signed By:DEMETRIS NORRIS MD
[2024-04-06] MEDS: oxyCODONE HCl Immed Release 5 MG TABLET PO (12:05)
[2024-04-06] MEDS: methylPREDNISolone Sod Succ 125 MG/2 ML VIAL IVPUSH (12:12)
--- NOTE | 2024-04-06 12:13 | ED.GENADULT ---
HPI - General Adult General Chief complaint: Back Pain/Injury Stated complaint: back pain down r leg Time Seen by Provider: 04/06/24 10:46 Source: patient Mode of arrival: ambulatory Limitations: no limitations History of Present Illness ED Provider: Nam WEBSTER HPI narrative: 74 yold male with pmh of chronic back arthrits, Afib, HTN, Hypothyroidism, presents to the ED for right sided lower back pain radiating down right leg after heavy lifting 2 days in the garden. Patient denies any urinary / bowel incontinence. Patient denies any numbness/ tingling and genital area. Patient denies any calf pain. patient states no fever or chills. Family states due to back pain decreased ambulation. Patient is now using crutches. Related Data Previous Rx's ?Medication ?Instructions ?Recorded metoprolol succinate 25 mg 25 mg PO DAILY 90 days #90 tabs 10/22/23 tablet,extended release 24 hr atorvastatin 10 mg tablet 10 mg PO DAILY 90 days #90 tabs 12/10/23 levothyroxine 25 mcg tablet 25 mcg PO DAILY 90 days #90 tabs 01/03/24 rivaroxaban 20 mg tablet (Xarelto) 20 mg PO DAILY 90 days #90 tabs 02/03/24 bethanechol chloride 25 mg tablet 25 mg PO BID 90 days #180 tabs 02/10/24 tamsulosin 0.4 mg capsule 0.4 mg PO DAILY 90 days #90 caps 02/10/24 losartan 25 mg tablet 25 mg PO DAILY 90 days #90 tabs 02/11/24 oxycodone 5 mg tablet 5 mg PO TID PRN pain 3 days #9 tabs 04/06/24 prednisone 20 mg tablet 40 mg (2 x 20 mg) PO DAILY 5 days 04/06/24 #10 tabs Allergies Allergy/AdvReac Type Severity Reaction Status Date / Time No Known Allergies Allergy Verified 04/06/24 09:30 Review of Systems Review of Systems: Back pain going down right leg Yes all other systems are reviewed and are negative [facility] Past Medical History Medical History Ascending aorta enlargement Physical exam Hypovitaminosis D BENNIE (obstructive sleep apnea) Gout Other and unspecified hyperlipidemia PAF (paroxysmal atrial fibrillation) Afib BPH (benign prostatic hyperplasia) Current use of halfway anticoagulation Hypothyroidism Dyslipidemia Essential hypertension Surgical History H/O colonoscopy Family History Family History Father Alzheimer disease Mother Arthritis Other Mental health problem Social History Social History Household Members: Other Household Members Other:: daughter Housing: Apartment Alcohol intake: current Alcohol intake frequency: holidays/special occasions only Alcohol type: beer Patient Tobacco Use Status: Never used Tobacco e-Cigarette/Vaping Use: Never Used Second Hand Smoke Exposure: No Advance Directives: No Advance Directives Information Provided: No service: No Current occupational status: retired and disabled Cognitive needs: No Hearing needs: No Vision needs: Yes Physical Exam ED Vital Signs: Vital Signs - 24 hr 04/06/24 09:26 04/06/24 13:58 04/06/24 16:07 Temperature 97.8 F 98.5 F 98.7 F Pulse Rate 68 60 62 Respiratory Rate 16 14 18 Blood Pressure 124/71 126/77 128/77 Pulse Oximetry 98 98 99 Oxygen Delivery Method Room Air Room Air Room Air BMI result Body Mass Index 24.6 Const General: cooperative, healthy appearing, comfortable, no acute distress and well developed [facility] Head: Yes normal to inspection, Yes No palpable skull fracture present, Yes normocephalic and Yes atraumatic Eyes General: appearance normal, both eyes and all related structures Neck Neck: Yes normal visual inspection, Yes full ROM, Yes no lymphadenopathy, Yes no meningeal signs, Yes trachea midline, Yes supple, No anterior neck swelling and No tender Chest Chest palpation & inspection: normal inspection of the chest and normal palpation of entire chest wall Resp Effort & Inspection: normal respiratory effort and able to speak in complete sentences Auscultation: clear to auscultation bilaterally Cardio Jugular venous distension: no JVD Heart sounds: S1 normal heart sound present and S2 normal heart sound present GI Inspection: Yes normal to inspection Palpation (GI): Soft to palpation, not firm, nontender, no guarding and not rigid General: No CVA tenderness and Yes no CVA tenderness Back/Spine/Pelvis Other: positive right sided straight leg test Back: no CVA tenderness, No CVA tenderness and back tenderness ( lumbar) Skin General skin exam: no rashes or lesions noted, elasticity normal and turgor normal Neuro General: tone normal, moves all extremities, Normal light touch and pain sensation, no meningeal signs, no focal motor deficits, CN's II-XI intact bilaterally and normal sensation to monofilament Extrem General: Yes normal to inspection and Yes full ROM Shoulder/upper arm images: 1. tenderness on palpation. negative swelling, ecchymosis, erythema, defromity, or crepitus. motor, neuro, and vascular exam is intact. Upper/lower leg/hip images: 1. positive for tenderness on palpation. Negative for crepitus, ecchymosis, deformity, erythema, hotness, or coldness. Positive for femoral pulses. Rest of extremity normal. Motor/neuro/vascular exam intact. Psych Appearance: grossly normal, well kempt and not disheveled Medications Administered Discontinued Medications Generic Name Dose Route Start Last Admin Trade Name Freq PRN Reason Stop Dose Admin Ketorolac Tromethamine 15 mg 04/06/24 13:51 04/06/24 14:03 Ketorolac Tromethamine 15 Mg/Ml Vial IVPUSH 04/06/24 13:52 15 mg ONCE ONE Administration Methylprednisolone Sodium Succinate 125 mg 04/06/24 11:29 04/06/24 12:12 Methylprednisolone Sod Succ 125 Mg/2 Ml Vial IVPUSH 04/06/24 11:30 125 mg ONCE ONE Administration Oxycodone HCl 5 mg 04/06/24 11:28 04/06/24 12:05 Oxycodone Hcl Immed Release 5 Mg Tablet PO 04/06/24 11:29 5 mg ONCE ONE Administration Medical Decision Making Medical Decision Making [facility] Narrative: 74-year-old male presents to ED right-sided low back pain radiating down right leg. Patient has secondary complaint is left shoulder pain for the past 2 days without any chest pain, shortness of breath, or left-sided neck pain. Patient denies any swelling of left upper extremity. Patient denies any recent trauma level extremity. Patient admits to heavy lifting past 2 days. Patient was doing gardening work. Patient denies any urinary/ bowel incontinence. Patient denies any IV drug use. Solu-Medrol oxycodone ordered. Labs ordered we will do cardiac evaluation due to left shoulder pain. Imaging of hip and lumbar spine ordered. UA ordered. 3:42pm: Hip and lumbar spine x-ray negative for fracture. Does shows radiculopathy And arthritis. Right lower extremity ultrasound negative for DVT. Patient is able to ambulate with cane. Patient feels better after receiving meds. Rectal exam positive for good strength. Negative any saddle anesthesia. Not suspecting cauda equina or epidural abscess. Patient and family explained worrisome signs and informed to return to the ED immediately if he has them. There were informed for patient to follow up with primary care provider for physical rehab and any further evaluation. Cardiac workup is normal. Shoulder xray shows arthrits. Differential Diagnosis Differential Diagnoses: The differential diagnosis associated with the presentation includes ( Fracture, arthritis, rhabdomyolysis) Admission/Observation Consideration of admission/observation: Escalation of care including admission/observation considered Lab Data MDM Lab Attestation statement: I reviewed the patient's lab results. 04/06/24 11:35 04/06/24 11:35 Labs: Lab Results 04/06/24 04/06/24 04/06/24 Range/Units 11:35 12:06 14:39 WBC 5.6 (4.8-10.8) X10*3/uL RBC 4.28 L (4.60-5.80) X10*6/uL Hgb 13.5 L (14.0-18.0) g/dl Hct 38.5 L (42.0-52.0) % MCV 90.0 (80.0-98.0) fL MCH 31.5 (27.0-33.0) pg MCHC 35.1 (31.0-36.0) g/dl RDW 12.4 (11.0-16.0) % Plt Count 187 (160-400) X10*3/uL MPV 9.6 (9.4-12.4) fL Immature Gran % (Auto) 0.2 (0.0-0.4) % Neut % (Auto) 64.0 (45-73) % Lymph % (Auto) 23.7 (20-40) % Gates % (Auto) 9.1 (2-11) % Eos % (Auto) 1.6 (0-4) % Baso % (Auto) 1.4 (0-2) % Lymph # (Auto) 1.3 (1.2-4.9) X10*3/uL Gates # (Auto) 0.5 (0.1-1.2) X10*3/uL Eos # (Auto) 0.1 (0.0-0.4) X10*3/uL Baso # (Auto) 0.1 (0.0-0.2) X10*3/uL Abs Immat Gran (auto) 0.01 (0.00-0.03) X10*3/uL Absolute Neuts (auto) 3.6 (2.0-8.3) x10*3/uL Absolute Nucleated RBC 0.000 (0.0-0.012) X10*3/uL Nucleated RBC % (auto) 0.0 (0.0-0.2) /100WBC PT 11.6 (11.1-13.3) SEC INR 1.0 (0.9-1.1) APTT 34.8 (26.0-36.8) SEC Sodium 134 L (135-145) mmol/L Potassium 4.8 (3.3-5.1) mmol/L Chloride 101 (96-108) mmol/L Carbon Dioxide 27 (22-29) mmol/L Anion Gap 11 L (12-20) BUN 12 (9-16) mg/dL Creatinine 0.94 (0.5-1.4) mg/dL Estim Creat Clear Calc 66.4 Estimated GFR > 60 Random Glucose 100 (60-115) mg/dL Calcium 9.6 (8.4-10.2) mg/dL Total Bilirubin 0.8 (0.0-1.0) mg/dL AST 17 (5-37) U/L ALT 14 (0-40) U/L Alkaline Phosphatase 50 (39-117) U/L Total Creatine Kinase 109 (38-174) U/L Troponin I High Sens < 2.7 < 2.7 (<3.5-35.0) ng/L Total Protein 7.1 (6.5-8.0) g/dL Albumin 4.2 (3.5-5.0) g/dL Urine Color Yellow Urine Appearance Clear Urine pH 7.5 (5.0-9.0) Ur Specific [place] <= 1.005 (1.005-1.025) Urine Protein Negative (Neg-Trace) mg/dL Urine Glucose (UA) Negative (Negative) mg/dL Urine Ketones Negative (Negative) mg/dL Urine Blood Negative (Negative) Urine Nitrite Negative (Negative) Ur Leukocyte Esterase Negative (Negative) Independent Interpretation I performed an independent interpretation of an: EKG (Sinus Bradycardai. negative stemi.), Plain X-Ray and Ultrasound Radiology Impression Discussion of test interpretation with radiology: I have reviewed the radiologist's reading. Independent Historian Clinical information obtained from an independent historian. History obtained from or confirmed by: Other ( patient and family) External Record Review External record reviewed: Other (Prior visits) Prescription Management I considered prescription management with: Other ( steroid oxycodone) Discharge Plan Discharge Clinical Impression: Lumbar radiculopathy, Shoulder arthritis, Arthritis, hip Patient Disposition: Home, Self-Care Instructions: Osteoarthritis (ED), Lumbar Radiculopathy (ED) Additional Instructions: recommend follow-up with your primary care provider. X-ray of your lumbar spine and hips show arthritis. Ultrasound of right lower extremity negative for blood clot. Your blood work came back normal. Return to the ED immediately for any numbness/ tingling in testicles or lower extremity, severe back pain, fever, chills, nausea, vomiting, urinary/ bowel incontinence, inability to walk, abdominal pain, flank pain, redness, calf pain, weakness in lower extremities, or any other concerning symptoms. Tylenol can be taken for mild pain. Prescriptions: New oxycodone 5 mg tablet 5 mg PO TID PRN (Reason: pain) 3 Days Qty: 9 0RF Rx Instructions: Partial Fill upon patient request. prednisone 20 mg tablet 40 mg PO DAILY 5 Days Qty: 10 0RF No Action metoprolol succinate 25 mg tablet extended release 24 hr 25 mg PO DAILY 90 Days Qty: 90 1RF atorvastatin 10 mg tablet 10 mg PO DAILY 90 Days Qty: 90 3RF levothyroxine 25 mcg tablet 25 mcg PO DAILY 90 Days Qty: 90 1RF Xarelto 20 mg tablet 20 mg PO DAILY 90 Days Qty: 90 1RF Rx Instructions: must administer with evening meal losartan 25 mg tablet 25 mg PO DAILY 90 Days Qty: 90 1RF tamsulosin 0.4 mg capsule 0.4 mg PO DAILY 90 Days Qty: 90 3RF bethanechol chloride 25 mg tablet 25 mg PO BID 90 Days Qty: 180 3RF Interventions: ED Discharge Assessment Last Done: 04/06/24 16:07 Discharge Date/Time: 04/06/24 16:17 Print Language: Armenian
[2024-04-06 12:15] LABS: MANUAL DIFF FLAG NO
[2024-04-06 12:16] LABS: Basophils Absolute Auto 0.1 X10*3/uL (0.0-0.2); Basophils Percent Auto 1.4 % (0-2); Eosinophils Absolute Auto 0.1 X10*3/uL (0.0-0.4); Eosinophils Percent Auto 1.6 % (0-4); Hematocrit 38.5 % (42.0-52.0); Hemoglobin 13.5 g/dl (14.0-18.0); Imm Gran Abs Auto 0.01 X10*3/uL (0.00-0.03); Imm Gran Pct Auto 0.2 % (0.0-0.4); Lymphocytes Absolute Auto 1.3 X10*3/uL (1.2-4.9); Lymphocytes Percent Auto 23.7 % (20-40); Mean Corpuscular HGB Conc 35.1 g/dl (31.0-36.0); Mean Corpuscular Hemoglobin 31.5 pg (27.0-33.0); Mean Platelet Volume 9.6 fL (9.4-12.4); Monocytes Absolute Auto 0.5 X10*3/uL (0.1-1.2); Monocytes Percent Auto 9.1 % (2-11); Neutrophils Absolute Auto 3.6 x10*3/uL (2.0-8.3); Platelet Count 187 X10*3/uL (160-400); Red Blood Count 4.28 X10*6/uL (4.60-5.80); Red Cell Distribution Width 12.4 % (11.0-16.0); White Blood Count 5.6 X10*3/uL (4.8-10.8)
[2024-04-06 12:19] LABS: Appearance Urine Clear; Color Urine Yellow; Glucose Urine UA Negative (Negative); Leukocyte Esterase Urine Negative (Negative); Nitrite Urine Negative (Negative); PH 7.5 (5.0-9.0); Specific Gravity - Urine <= 1.005 (1.005-1.025); Urine Blood Negative (Negative); Urine Ketones Negative (Negative); Urine Protein Negative (Neg-Trace)
[2024-04-06 12:22] LABS: Prothrombin Time 11.6 SEC (11.1-13.3)
[2024-04-06 12:25] LABS: Partial Thromboplastin Time 34.8 SEC (26.0-36.8)
[2024-04-06 12:37] LABS: Alanine Aminotransferase 14 U/L (0-40); Albumin Level 4.2 g/dL (3.5-5.0); Alkaline Phosphatase 50 U/L (39-117); Anion Gap 11 (12-20); Aspartate Amino Transferase 17 U/L (5-37); Bilirubin Total 0.8 mg/dL (0.0-1.0); Blood Urea Nitrogen 12 mg/dL (9-16); Calcium 9.6 mg/dL (8.4-10.2); Carbon Dioxide 27 mmol/L (22-29); Chloride 101 mmol/L (96-108); Creatinine Clr Calc Pharmacy 66.4; Estimated Glomerular Filt Rate > 60; Glucose Random 100 mg/dL (60-115); Potassium 4.8 mmol/L (3.3-5.1); Sodium 134 mmol/L (135-145); Total Protein 7.1 g/dL (6.5-8.0)
[2024-04-06 12:46] LABS: Troponin-I High Sensitivity < 2.7 ng/L (<3.5-35.0)
[2024-04-06 13:58] VITALS: BP 126/77; PULSE 60; RESP 14; TEMP 36.9; O2SAT 98
[2024-04-06] MEDS: Ketorolac Tromethamine 15 MG/ML VIAL IVPUSH (14:03)
[2024-04-06 15:17] LABS: Troponin-I High Sensitivity < 2.7 ng/L (<3.5-35.0)
[2024-04-06 16:07] VITALS: BP 128/77; PULSE 62; RESP 18; TEMP 37.1; O2SAT 99
== END 2024-04-06 16:17 | disposition home or self-care (01) ==
PROVIDERS: Physician Assistant; Emergency Provider Emergency Medicine; PCP Internal Medicine
DX: M54.16 Radiculopathy, lumbar region (principal); M16.11 Unilateral primary osteoarthritis, right hip; M19.011 Primary osteoarthritis, right shoulder; R00.1 Bradycardia, unspecified; R60.0 Localized edema; M79.606 Pain in leg, unspecified; M25.512 Pain in left shoulder; Z79.899 Other long term (current) drug therapy
CPT/HCPCS: 36415; 72100; 73030; 73502; 80053; 81003; 82550; 84484; 85025; 85610; 85730; 93005; 93971; 96374; 96375; 99284; J1885; J2919

== ENCOUNTER → 2024-04-06 11:25 | Outpatient (BNV) | payer MEDICARE, MEDICAID, SELFPAY | PROVIDERS: Emergency Provider Emergency Medicine; PCP Internal Medicine; Visit Provider Internal Medicine Cardiovascular Disease | DX: R00.1 Bradycardia, unspecified (principal) | CPT/HCPCS: 93010 ==

== ENCOUNTER 2024-04-10 14:49 | Outpatient (AMB) | payer MEDICARE, MEDICAID, SELFPAY ==
--- NOTE | 2024-04-10 14:54 | MHC.PC.OV ---
Vital Signs 04/10/24 14:56 Height 5 ft 7 in Weight 161 lb 8 oz BMI 25.3 BP 148/82 H Blood Pressure Location Lt brachial Position Sitting Pulse 71 Pulse Source Pulse Oximeter Pulse Oximetry (%) 96 Oxygen Delivery Method Room Air Intake Visit Reasons: 04/06/ ed for back pain and left leg pain Intake Note: Patient is here to follow-up after a visit the emergency department at [facility] on 04/06/24 Statistical Financial Analyst Required: Yes Statistical Financial Analyst Language: Senior Business Architect Name: Dale ([id number]) Information Interpreted: non-clinical & clinical Supervisor [place]: Present Accompanied by: Daughter Allergies No Known Allergies Allergy (Verified 04/10/24 14:56) Tobacco use date assessed: 04/10/24 Fall risk assessment: No Falls in past year Last assessed Fall Risk: 04/10/24 Dental Screening Dental Screen Date: 12/23/23 HPI HPI Comments History of Present Illness Details 74 y/o male patient who presents to the clinic for ED follow up. DOS: 04/06/24 and DOD: 04/06/24 Diagnosis: Osteoarthritis and Lumbar Radiculopathy Pt today reports feeling better, still has joint pains. 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 Hypothyroidism Dyslipidemia Essential hypertension Surgical History H/O colonoscopy Family History Father Alzheimer disease Mother Arthritis Other Mental health problem Social History Household Members: Other Household Members Other:: daughter Housing: Apartment Alcohol intake: current Alcohol intake frequency: holidays/special occasions only Alcohol type: beer Patient Tobacco Use Status: Never used Tobacco e-Cigarette/Vaping Use: Never Used Second Hand Smoke Exposure: No service: No Current occupational status: retired and disabled Cognitive needs: No Hearing needs: No Vision needs: Yes Questionnaire Thrive Questionnaire Date Thrive assessed: 12/23/23 MICHAEL-7 AMB Questionnaire MICHAEL-7 Date MICHAEL - 7 assessed: 12/23/23 Source: Developed by Drs. Colton Yañez, Lilia Louis, Fili Echevarria and colleagues, with an educational mesfin from [employer]. Review of Systems Const All systems reviewed & are unremarkable except as noted in HPI and below Physical exam (Primary Care) Vital Signs: Last Vital Signs Pulse 71 04/10/24 14:56 BP 148/82 H 04/10/24 14:56 Pulse Ox 96 04/10/24 14:56 Oxygen Delivery Method Room Air 04/10/24 14:56 BMI result Body Mass Index 25.3 Tobacco/Smoking Status: Tobacco use Status Tobacco use date assessed 04/10/24 04/10/24 15:05 Patient Tobacco Use Status Never used Tobacco 04/10/24 14:55 e-Cigarette/Vaping Use Never Used 04/10/24 14:55 Thrive Assessment: Date of Thrive Assessment Date Thrive assessed 12/23/23 04/10/24 14:55 Const General: cooperative, comfortable and no acute distress Orientation/consciousness: patient oriented x3 Neuro General: patient oriented x3, gait normal and moves all extremities Extrem General: Yes normal to inspection and Yes full ROM Vital Signs: Last Vital Signs Pulse 71 04/10/24 14:56 BP 148/82 H 04/10/24 14:56 Pulse Ox 96 04/10/24 14:56 Oxygen Delivery Method Room Air 04/10/24 14:56 BMI result Body Mass Index 25.3 Const General: cooperative, comfortable and no acute distress Orientation/consciousness: patient oriented x3 Neuro General: patient oriented x3, gait normal and moves all extremities Extrem General: Yes normal to inspection and Yes full ROM Psych Other: Walks with a cane Assessment and Plan Assessment & Plan (1) Lumbar radiculopathy: Code(s): M54.16 - Radiculopathy, lumbar region Plan: Recommended low impact exercises such as swimming and walk. Acetaminophen for pain relief F/U with PCP PRN (2) Osteoarthritis: Code(s): M19.90 - Unspecified osteoarthritis, unspecified site Qualifiers: Laterality: bilateral Osteoarthritis location: shoulder Osteoarthritis type: primary Qualified Code(s): M19.011 - Primary osteoarthritis, right shoulder; M19.012 - Primary osteoarthritis, left shoulder Coding Level of Care Code Est Pt Level 4 (84461) Diagnoses Lumbar radiculopathy M54.16 Primary osteoarthritis of both shoulders M19.011; M19.012 Laterality: bilateral Osteoarthritis location: shoulder Osteoarthritis type: primary Comment Spent 20 minutes reviewing hospital notes.
[2024-04-10 14:56] VITALS: BP 148/82; PULSE 71; O2SAT 96; BMI 25.3
== END 2024-04-10 16:32 | disposition home or self-care (01) ==
LOC: HO.HMGH 14:49
PROVIDERS: PCP Internal Medicine; Visit Provider Nurse Practitioner Family
DX: M54.16 Radiculopathy, lumbar region (principal); M19.011 Primary osteoarthritis, right shoulder; M19.012 Primary osteoarthritis, left shoulder
CPT/HCPCS: 99214

== ENCOUNTER 2024-04-27 13:55 | Outpatient (AMB) | payer MEDICARE, MEDICAID, SELFPAY ==
[2024-04-27 14:00] VITALS: BP 118/70; PULSE 80; O2SAT 98; BMI 24.6
--- NOTE | 2024-04-27 14:00 | MHC.PC.OV ---
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 Accompanied by: Self / Same As Patient Allergies No Known Allergies Allergy (Verified 04/27/24 14:14) Medication List - Last Reconciled 04/27/24 by Lata Pritchett MD atorvastatin 10 mg PO DAILY 90 days bethanechol chloride 25 mg PO BID 90 days levothyroxine 25 mcg PO DAILY 90 days losartan 25 mg PO DAILY 90 days metoprolol succinate ER 25 mg PO DAILY 90 days oxycodone 5 mg PO TID PRN 3 days rivaroxaban (Xarelto) 20 mg PO DAILY 90 days tamsulosin 0.4 mg PO DAILY 90 days Tobacco use date assessed: 04/10/24 Fall risk assessment: No Falls in past year Last assessed Fall Risk: 04/27/24 Dental Screening Dental Screen Date: 12/23/23 HPI HPI Comments History of Present Illness Details This is a 74-year-old male with paroxysmal atrial fibrillation, essential hypertension and hypothyroidism that comes accompanied by daughter today complaining of left shoulder pain due to osteoarthritis reveal by x-ray by a recent ER visit. He does have full active range of motion but would like to see ortho. Declines physical therapy. He also has difficulty swallowing solids that started few months ago. No significant change in weight. Will have a barium swallow. On chronic anticoagulation for atrial fibrillation that is follow by cardiology. Blood pressure stable. Last TSH was normal. Walks with a cane for gait stability. 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 Hypothyroidism Dyslipidemia Essential hypertension Surgical History H/O colonoscopy Family History Father Alzheimer disease Mother Arthritis Other Mental health problem Social History Household Members: Other Household Members Other:: daughter Housing: Apartment Alcohol intake: current Alcohol intake frequency: holidays/special occasions only Alcohol type: beer Patient Tobacco Use Status: Never used Tobacco e-Cigarette/Vaping Use: Never Used Second Hand Smoke Exposure: No service: No Current occupational status: retired and disabled Cognitive needs: No Hearing needs: No Vision needs: Yes Questionnaire Thrive Questionnaire Date Thrive assessed: 12/23/23 AUDIT C Alcohol Use Questionnaire (AUDIT-C) 1. How often do you have a drink containing alcohol?: Monthly or less 2. How many drinks containing alcohol do you have on a typical day when you are drinking?: 1 or 2 3. How often do you have six or more drinks on one occasion?: Never Total Score: 1 Score Reviewed/Action Taken: No MICHAEL-7 AMB Questionnaire MICHAEL-7 Date MICHAEL - 7 assessed: 12/23/23 Source: Developed by Drs. Colton Yañez, Lilia Louis, Fili Echevarria and colleagues, with an educational mesfin from [employer]. Review of Systems Const All systems reviewed & are unremarkable except as noted in HPI and below ENT Denies change in voice, Denies nasal discharge and Denies sinus pain Card Denies chest pain at rest, Denies chest pain with activity, Denies edema, Denies irregular heart rhythm, Denies claudication, Denies dyspnea, Denies dyspnea on exertion, Denies orthopnea, Denies paroxysmal nocturnal dyspnea and Denies slow heart rate Resp Denies cough, Denies dyspnea and Denies dyspnea on exertion Musc Denies abnormal gait, Denies atrophy, Denies deformity and Denies limited range of motion Skin/Breast Denies bleeding lesions, Denies changing lesions and Denies rash Neuro Denies abnormal gait and Denies lack of coordination Physical exam (Primary Care) Vital Signs: Last Vital Signs Pulse 80 04/27/24 14:00 BP 118/70 04/27/24 14:00 Pulse Ox 98 04/27/24 14:00 Oxygen Delivery Method Room Air 04/27/24 14:00 BMI result Body Mass Index 24.6 Tobacco/Smoking Status: Tobacco use Status Tobacco use date assessed 04/10/24 04/27/24 14:08 Patient Tobacco Use Status Never used Tobacco 04/27/24 14:08 e-Cigarette/Vaping Use Never Used 04/27/24 14:08 Thrive Assessment: Date of Thrive Assessment Date Thrive assessed 12/23/23 04/27/24 14:08 Const Limitations: ambulation with cane Resp Effort & Inspection: normal respiratory effort Auscultation: clear to auscultation bilaterally Cardio Jugular venous distension: no JVD Rate: regular rate Rhythm: regular rhythm Heart sounds: S1 normal heart sound present and S2 normal heart sound present Extrem General: Yes full ROM Assessment and Plan Assessment & Plan (1) Primary osteoarthritis, left shoulder: Code(s): M19.012 - Primary osteoarthritis, left shoulder Plan: Referred to Ortho. (2) Dysphagia: Code(s): R13.10 - Dysphagia, unspecified Plan: Barium swallow ordered. (3) PAF (paroxysmal atrial fibrillation): Code(s): I48.0 - Paroxysmal atrial fibrillation Plan: Continue metoprolol and Xarelto. The goal is heart rate control. (4) Essential hypertension: Code(s): I10 - Essential (primary) hypertension Plan: Continue losartan. Blood pressure goal is equal or less than 130/80. (5) Hypothyroidism: Code(s): E03.9 - Hypothyroidism, unspecified Qualifiers: Hypothyroidism type: unspecified Qualified Code(s): E03.9 - Hypothyroidism, unspecified Plan: Continue levothyroxine. Monitor TSH. Orders: Orders Thyroid Stimulating Hormone Today E03.9 - Hypothyroidism, unspecified FL barium swallow modified Today R13.10 - Dysphagia, unspecified Referrals Orthopedics Referral M19.012 - Primary osteoarthritis, left shoulder Speech and Hearing Referral H91.90 - Unspecified hearing loss, unspecified ear Coding Level of Care Code Est Pt Level 4 (17601) Complex EM visit Add On G2211 Diagnoses Primary osteoarthritis, left shoulder M19.012 Dysphagia R13.10 PAF (paroxysmal atrial fibrillation) I48.0 Essential hypertension I10 Hypothyroidism, unspecified type E03.9 Hypothyroidism type: unspecified Time Spent (min) 24
== END 2024-04-27 14:25 | disposition home or self-care (01) ==
PROVIDERS: PCP Internal Medicine; Visit Provider Internal Medicine
DX: M19.012 Primary osteoarthritis, left shoulder (principal); R13.10 Dysphagia, unspecified; I48.0 Paroxysmal atrial fibrillation; I10 Essential (primary) hypertension; E03.9 Hypothyroidism, unspecified
CPT/HCPCS: 99214; G2211

== ENCOUNTER 2024-04-27 14:36 | Outpatient (REF) | payer MEDICARE, MEDICAID, SELFPAY ==
[2024-04-27 16:26] LABS: Thyroid Stimulating Hormone 1.27 uIU/mL (0.32-4.0)
== END 2024-04-27 14:37 | disposition home or self-care (01) ==
LOC: HO.LAB 14:36
PROVIDERS: PCP Internal Medicine; Visit Provider Internal Medicine
DX: E03.9 Hypothyroidism, unspecified (principal); R13.10 Dysphagia, unspecified
CPT/HCPCS: 36415; 84443

== ENCOUNTER 2024-05-08 08:00 | Outpatient (REF) | payer MEDICARE, MEDICAID, SELFPAY ==
[2024-05-08 08:34] LABS: MANUAL DIFF FLAG NO
[2024-05-08 08:41] LABS: Basophils Absolute Auto 0.1 X10*3/uL (0.0-0.2); Basophils Percent Auto 1.1 % (0-2); Eosinophils Absolute Auto 0.3 X10*3/uL (0.0-0.4); Hematocrit 38.2 % (42.0-52.0); Hemoglobin 13.2 g/dl (14.0-18.0); Imm Gran Abs Auto 0.02 X10*3/uL (0.00-0.03); Imm Gran Pct Auto 0.3 % (0.0-0.4); Lymphocytes Absolute Auto 1.7 X10*3/uL (1.2-4.9); Lymphocytes Percent Auto 26.6 % (20-40); Mean Corpuscular HGB Conc 34.6 g/dl (31.0-36.0); Mean Corpuscular Hemoglobin 31.3 pg (27.0-33.0); Mean Corpuscular Volume 90.5 fL (80.0-98.0); Mean Platelet Volume 9.7 fL (9.4-12.4); Monocytes Absolute Auto 0.8 X10*3/uL (0.1-1.2); Monocytes Percent Auto 13.2 % (2-11); Neutrophils Absolute Auto 3.4 x10*3/uL (2.0-8.3); Neutrophils Percent Auto 53.8 % (45-73); Platelet Count 223 X10*3/uL (160-400); Red Blood Count 4.22 X10*6/uL (4.60-5.80); Red Cell Distribution Width 12.9 % (11.0-16.0); White Blood Count 6.4 X10*3/uL (4.8-10.8)
[2024-05-08 08:52] LABS: Anion Gap 13 (12-20); Blood Urea Nitrogen 6 mg/dL (9-16); Carbon Dioxide 25 mmol/L (22-29); Chloride 105 mmol/L (96-108); Potassium 4.3 mmol/L (3.3-5.1); Sodium 139 mmol/L (135-145)
[2024-05-08 08:53] LABS: Alanine Aminotransferase 14 U/L (0-40); Albumin Level 4.3 g/dL (3.5-5.0); Aspartate Amino Transferase 15 U/L (5-37); Bilirubin Total 0.9 mg/dL (0.0-1.0); Calcium 9.5 mg/dL (8.4-10.2); Estimated Glomerular Filt Rate > 60; Glucose Random 100 mg/dL (60-115)
[2024-05-08 08:54] LABS: Alkaline Phosphatase 63 U/L (39-117)
[2024-05-08 09:23] LABS: Ferritin 118 ng/mL (20-250)
== END 2024-05-08 08:01 | disposition home or self-care (01) ==
LOC: HO.LAB 08:00
PROVIDERS: PCP Internal Medicine; Visit Provider Internal Medicine Medical Oncology
DX: D75.89 Other specified diseases of blood and blood-forming organs (principal)
CPT/HCPCS: 36415; 80053; 82728; 85025

== ENCOUNTER 2024-05-18 15:37 | Outpatient (REF) | payer MEDICARE, MEDICAID, SELFPAY ==
--- NOTE | ~2024-05-18 | XR_ITS ---
EXAMINATION: XR CHEST 2 VIEWS CLINICAL INFORMATION: Cough and sputum production. COMPARISON: None. TECHNIQUE: Frontal and lateral views of the chest were obtained. FINDINGS: The heart, great vessels, pulmonary vasculature and mediastinum are normal. The lungs show no focal infiltrate, effusion or pneumothorax. There is no acute osseous abnormality. XR/XR chest 2V IMPRESSION: No active cardiopulmonary disease.
== END 2024-05-18 15:38 | disposition home or self-care (01) ==
LOC: HO.XRAY 15:37
PROVIDERS: PCP Internal Medicine; Visit Provider Internal Medicine Medical Oncology
DX: R05.9 Cough, unspecified (principal)
CPT/HCPCS: 71046

== ENCOUNTER 2024-06-01 13:10 | Outpatient (AMB) | payer MEDICARE, MEDICAID, SELFPAY ==
--- NOTE | 2024-06-01 13:50 | MHC.OFFVIS ---
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 Patient reports intermittent pain that has been present for a couple of months. His pain starts in his shoulder and radiates down his arm. His pain is worse at night making it difficult to sleep. No previous tx. He does not recall any injury. Denies numbness or tingling. 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 He states he has intermittent pain in his shoulder that radiates down to his arm. His pain is aggravated at night making it difficult to sleep. He denies any numbness or tingling. He denies any injury and has not had any treatment in the past. 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 Hypothyroidism Dyslipidemia Essential hypertension Surgical History H/O colonoscopy Family History Father Alzheimer disease Mother Arthritis Other Mental health problem Social History Household Members: Other Household Members Other:: daughter Housing: Apartment Alcohol intake: current Alcohol intake frequency: holidays/special occasions only Alcohol type: beer Patient Tobacco Use Status: Never used Tobacco e-Cigarette/Vaping Use: Never Used Second Hand Smoke Exposure: No service: No Current occupational status: retired and disabled Cognitive needs: No Hearing needs: No Vision needs: Yes Review of Systems Const All systems reviewed & are unremarkable except as noted in HPI and below Physical Exam Vital Signs: BMI result Body Mass Index 24.7 Const General: cooperative, healthy appearing, comfortable, no acute distress, well developed and alert Orientation/consciousness: patient oriented x3 HEENT Head: Yes normal to inspection, Yes normocephalic and Yes atraumatic Eyes General: appearance normal, both eyes and all related structures Resp Effort & Inspection: normal respiratory effort and able to speak in complete sentences Cardio Rate: regular rate Peripheral pulses: Peripheral pulses 2+ throughout GI Palpation (GI): Soft to palpation Skin Lesions: no lesions Rashes: no rashes Neuro General: patient oriented x3 Extrem Other: Left shoulder: Normal to inspection. Tenderness over the bicipital groove and along the deltoid region of the shoulder. Forward flexion to 175, external rotation to 90, internal rotation to S1. 5/5 RTC strength. Negative Dc and cross body abduction. NVI. Results Reviewed Results Reviewed: xray of the left shoulder 04/06/24 -mild degenerative changes Assessment & Plan Assessment & Plan (1) Primary osteoarthritis, left shoulder: Code(s): M19.012 - Primary osteoarthritis, left shoulder Category: Medical Plan Patient already has physical therapy orders in place from his PCP. He will proceed with these referrals and increase activities as tolerated. If symptoms persist or worsen, patient will contact the office to discuss steroid injection, otherwise follow-up as needed. Patient Instructions: Scribed for Asha Echavarria PA-C, by Johnnie Henry medical records technician, on 06/01/2024 at 1:45 PM EST.? I, Asha Echavarria PA-C, have personally reviewed and agree with the information entered by the scribe. Coding Level of Care Code New Pt Level 3 (46836) Diagnoses Primary osteoarthritis, left shoulder M19.012
[2024-06-01 13:57] VITALS: BMI 24.7
== END 2024-06-01 15:14 | disposition home or self-care (01) ==
PROVIDERS: PCP Internal Medicine; Visit Provider Physician Assistant
DX: M19.012 Primary osteoarthritis, left shoulder (principal)
CPT/HCPCS: 99203

== ENCOUNTER → 2024-06-01 13:10 | Outpatient (BNVA) | payer MEDICARE, MEDICAID, SELFPAY | PROVIDERS: PCP Internal Medicine; Visit Provider Physician Assistant | DX: M19.012 Primary osteoarthritis, left shoulder (principal) | CPT/HCPCS: 99202 ==

== ENCOUNTER 2024-06-29 15:00 | Outpatient (RCR) | payer MEDICARE, MEDICAID, SELFPAY ==
--- NOTE | 2024-06-15 16:00 | MHC.PT.EP ---
[facility] [place] Office [place] Office [place] Office [address] [place] [address] [phone] F: [phone] F: [phone] F: [phone] F: [phone] Physical Therapy Plan of Care Date of Evaluation: 06/15/24 Date of Surgery: NA Diagnosis: Primary OA of L shoulder Low back pain, unspecified Assessment: Michael is a 74 year old male who is referred to PT for primary OA of L shoulder and low back pain . Michael denies having any low back pain and stated that his shoulder pain is significantly better. He currently only has stiffness/pain early in the mornings and this resolves with movements. On PT examination he presented with 5/10 pain in the morning, all shoulder gross ROM WNL, no TTP noted, gross shoulder strength WFL, decreased scap strength, altered scap rhythm and impaired posture. He lives with his daughter and grand daughter and is independent with self care activities. Family performs all IADLS. He would benefit from skilled PT to address the aforementioned impairments and improve tolerance to functional activities. Frequency and Duration: The patient will be seen 1/week for 5 weeks Short Term Goals: 1. Pt will demonstrate initiation of HEP in 2 weeks. 2. Pt will have 50% decrease in pain/ stiffness during early mornings in 3 weeks. Hog Trader Goals: 1. Pt will be independent with all HEP for symptom management and maintenance following d/c in 5 weeks. Treatment Plan: Modalities to reduce pain, spasms and effusion. Manual therapy to restore motion and function. Therapeutic exercise to improve strength and flexibility. Neuromuscular re-education for posture and balance. Therapeutic activities to return to functional activities of daily living. Electronically signed by: Princess Aquino PT DPT Please sign and return to therapist. Thank you for your referral.
--- NOTE | 2024-06-29 15:47 | MHC.PT.DC ---
[facility] [place] Office [place] Office [place] Office [address] [place] [address] [phone] F: [phone] F: [phone] F: [phone] F: [phone] Physical Therapy Discharge Report Diagnosis: Primary OA of L shoulder Low back pain, unspecified Date of Surgery: NA Date of Evaluation: 06/15/24 Date of Discharge: 06/29/24 Treatments to Date: 3 Cancellations to Date: 0 No Shows to Date: 0 Discharge Status: Discharge Summary: Michael arrived no new complaints. Today is his last scheduled visit and he does not wish to come back. I reviewed his existing HEP and educated him on importance of performing HEP to avoid any future shoulder pain. Michael has been d/c from PT today. Electronically signed by: Princess Aquino, PT DPT Please sign and return to therapist. Thank you for your referral.
== END 2024-06-29 15:47 | disposition home or self-care (01) ==
LOC: HO.PT 15:00
PROVIDERS: PCP Internal Medicine; Visit Provider Internal Medicine
DX: M19.012 Primary osteoarthritis, left shoulder (principal); M54.50 Low back pain, unspecified
CPT/HCPCS: 97110; 97140; 97161

== ENCOUNTER 2024-09-28 14:38 | Outpatient (AMB) | payer MEDICARE, MEDICAID, SELFPAY ==
--- NOTE | 2024-09-28 14:56 | A.OFFPC_ITS ---
Vital Signs 09/28/24 14:58 Height 5 ft 7 in Weight 160 lb BMI 25.1 BP 142/90 H Blood Pressure Location Lt brachial Position Sitting Intake Visit Reasons: 4 MO F/U Thyroid Intake Note: Patient here for a 4 month follow up Thyroid Ergonomic Specialist Required: No Accompanied by: Self / Same As Patient Allergies No Known Allergies Allergy (Verified 09/28/24 15:15) Medication List - Last Reconciled 09/28/24 by Lata Pritchett MD atorvastatin 10 mg PO DAILY 90 days bethanechol chloride 25 mg PO BID 90 days levothyroxine 25 mcg PO DAILY 90 days losartan 25 mg PO DAILY 90 days metoprolol succinate ER 25 mg PO DAILY 90 days oxycodone 5 mg PO TID PRN 3 days rivaroxaban (Xarelto) 20 mg PO DAILY 90 days tamsulosin 0.4 mg PO DAILY 90 days Tobacco use date assessed: 04/10/24 Fall risk assessment: No Falls in past year Last assessed Fall Risk: 09/28/24 Dental Screening Dental Screen Date: 09/28/24 Did you have a dental visit in the last 12 months?: No Did you have a dental problem in the last 6 months where you did not have access to dental care?: No Was dental information given to patient?: Patient has dentist HPI HPI Comments History of Present Illness Details The patient is a 74-year-old male presenting with consistent management of essential hypertension and atrial fibrillation. The patient is currently on Losartan 25 mg for hypertension and Metoprolol 25 mg for atrial fibrillation. He is also taking Atorvastatin 10 mg for hyperlipidemia and Levothyroxine 25 mg for hypothyroidism. Recent symptoms include slight episodes of epistaxis, particularly noted with cold exposure, likely associated with his use of Xarelto. There have been no reports of chest pain, dyspnea, or other significant cardiovascular or respiratory symptoms. The patient adheres to a low-salt diet and has been reminded of the importance of maintaining dietary sodium restriction. Regular monitoring of thyroid function, lipid profile, renal function, and fasting glucose has been underscored, with a plan to conduct these evaluations this week. Previous CBC indicated mild anemia; a repeat CBC has been ordered to reassess hemoglobin levels. 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 Hypothyroidism Essential hypertension Surgical History H/O colonoscopy Family History Father Alzheimer disease Mother Arthritis Other Mental health problem Social History Household Members: Other Household Members Other:: daughter Housing: Apartment Alcohol intake: current Alcohol intake frequency: holidays/special occasions only Alcohol type: beer Patient Tobacco Use Status: Never used Tobacco e-Cigarette/Vaping Use: Never Used Second Hand Smoke Exposure: No service: No Current occupational status: retired and disabled Cognitive needs: No Hearing needs: No Vision needs: Yes Questionnaire Thrive Questionnaire Date Thrive assessed: 12/23/23 MICHAEL-7 AMB Questionnaire MICHAEL-7 Date MICHAEL - 7 assessed: 12/23/23 Source: Developed by Drs. Colton Yañez, Lilia Louis, Fili Echevarria and colleagues, with an educational mesfin from [employer]. Review of Systems Const Details: - Cardiovascular: Denies chest pain. - Respiratory: Denies shortness of breath. - Hematological: Reports occasional mild nosebleeds. - Gastroenterological: Denies any notable gastrointestinal symptoms. Physical exam (Primary Care) Vital Signs: Last Vital Signs BP 142/90 H 09/28/24 14:58 BMI result Body Mass Index 25.1 Tobacco/Smoking Status: Tobacco use Status Tobacco use date assessed 04/10/24 09/28/24 15:05 Patient Tobacco Use Status Never used Tobacco 09/28/24 15:05 e-Cigarette/Vaping Use Never Used 09/28/24 15:05 Thrive Assessment: Date of Thrive Assessment Date Thrive assessed 12/23/23 09/28/24 15:05 Const Other: General: Cooperative, in no distress Respiratory: Normal respiratory effort, clear to auscultation bilaterally Cardiovascular: No jugular venous distension, regular rate, regular rhythm, S1 normal heart sound present and S2 normal heart sound present Extremities: Full ROM Psychology: Grossly normal Office Procedures Flu Questionnaire Does the patient have a severe egg allergy?: No Immunizations Fluarix Triv [id number] (PF) 45 mcg (15 mcg x 3)/0.5 mL IM syringe Performing Provider: Lata Pritchett MD Performing [facility] [place] Documented (not given) by: CORY Razo on 09/28/24 15:06 Reason Not Given: Not Given Coding Level of Care Code Est Pt Level 4 (19655) Complex EM visit Add On G2211 Diagnoses Essential hypertension I10 Hypothyroidism, unspecified type E03.9 Hypothyroidism type: unspecified PAF (paroxysmal atrial fibrillation) I48.0 Dyslipidemia E78.5 Anemia D64.9 Time Spent (min) 22 Assessment & Plan Assessment & Plan (1) Essential hypertension: Code(s): I10 - Essential (primary) hypertension Category: Medical (2) Hypothyroidism: Code(s): E03.9 - Hypothyroidism, unspecified Category: Medical Qualifiers: Hypothyroidism type: unspecified Qualified Code(s): E03.9 - Hypothyroidism, unspecified (3) PAF (paroxysmal atrial fibrillation): Code(s): I48.0 - Paroxysmal atrial fibrillation Category: Medical (4) Dyslipidemia: Code(s): E78.5 - Hyperlipidemia, unspecified Category: Medical (5) Anemia: Code(s): D64.9 - Anemia, unspecified Category: Medical Plan - Essential Hypertension: Continue Losartan 25 mg and advise sodium intake reduction. Schedule follow-up in three weeks for blood pressure re-evaluation with nurse navigator. - Hyperlipidemia: Maintain Atorvastatin 10 mg regimen. - Hypothyroidism: Re-evaluate thyroid function with current lab orders. - Atrial Fibrillation: Continue Metoprolol 25 mg therapy, monitor for any heart- related symptoms. - Recent epistaxis: Monitor and manage nasal bleeding. Repeat CBC to check hemoglobin levels due to history of mild anemia. - Anticoagulation Management: Continue Xarelto with caution due to epistaxis, monitor for any significant bleeding events. Patient was informed and verbally consented to the use of an ambient scribe for clinic note documentation during this visit. During this visit, we discussed the ongoing management of hypertension, highlighting the importance of a low-sodium diet and regular monitoring. We addressed anticoagulation management considering the history of mild epistaxis, emphasizing the importance of monitoring for significant bleeding. Thyroid and lipid profiles, as well as kidney function, are to be reassessed this week. I advised a CBC to reevaluate hemoglobin levels following previous mild anemia findings. We also covered the rationale behind current medication regimens and set a follow-up schedule to reassess hypertension control. Orders: Orders Influenza 1016-0901 Immunization Today Z23 - Encounter for immunization IRON PROFILE Today D64.9 - Anemia, unspecified Lipid Panel Today E78.5 - Hyperlipidemia, unspecified Thyroid Stimulating Hormone Today E03.9 - Hypothyroidism, unspecified Comprehensive [place]. Panel Fast Today M54.50 - Low back pain, unspecified Complete Blood Count Auto Diff Today D64.9 - Anemia, unspecified Patient Instructions: - Maintain a low-salt diet. - Attend lab appointments for thyroid, lipid profile, renal function, and fasting glucose tests. - Schedule a follow-up appointment in three weeks for blood pressure re-evalua tion. - Report any significant bleeding or unusual symptoms immediately. - Continue current medication regimen as prescribed.
[2024-09-28 14:58] VITALS: BP 142/90; BMI 25.1
== END 2024-09-28 15:31 | disposition home or self-care (01) ==
PROVIDERS: PCP Internal Medicine; Visit Provider Internal Medicine
DX: I10 Essential (primary) hypertension (principal); E03.9 Hypothyroidism, unspecified; I48.0 Paroxysmal atrial fibrillation; E78.5 Hyperlipidemia, unspecified; D64.9 Anemia, unspecified; Z23 Encounter for immunization

== ENCOUNTER → 2024-09-28 14:38 | Outpatient (BNVA) | payer MEDICARE, MEDICAID, SELFPAY | PROVIDERS: PCP Internal Medicine; Visit Provider Internal Medicine | DX: I10 Essential (primary) hypertension (principal); E03.9 Hypothyroidism, unspecified; I48.0 Paroxysmal atrial fibrillation; E78.5 Hyperlipidemia, unspecified; D64.9 Anemia, unspecified | CPT/HCPCS: 90471; 99212 ==

== ENCOUNTER 2024-10-01 06:47 | Outpatient (REF) | payer MEDICARE, MEDICAID, SELFPAY ==
[2024-10-01 07:07] LABS: MANUAL DIFF FLAG NO
[2024-10-01 07:29] LABS: Basophils Absolute Auto 0.1 X10*3/uL (0.0-0.2); Basophils Percent Auto 1.5 % (0-2); Eosinophils Absolute Auto 0.2 X10*3/uL (0.0-0.4); Eosinophils Percent Auto 3.4 % (0-4); Hematocrit 39.5 % (42.0-52.0); Hemoglobin 13.8 g/dl (14.0-18.0); Imm Gran Abs Auto 0.01 X10*3/uL (0.00-0.03); Imm Gran Pct Auto 0.2 % (0.0-0.4); Lymphocytes Absolute Auto 2.4 X10*3/uL (1.2-4.9); Mean Corpuscular HGB Conc 34.9 g/dl (31.0-36.0); Mean Corpuscular Hemoglobin 30.8 pg (27.0-33.0); Mean Corpuscular Volume 88.2 fL (80.0-98.0); Mean Platelet Volume 10.2 fL (9.4-12.4); Monocytes Absolute Auto 0.6 X10*3/uL (0.1-1.2); Monocytes Percent Auto 10.5 % (2-11); Neutrophils Percent Auto 38.4 % (45-73); Platelet Count 175 X10*3/uL (160-400); Red Blood Count 4.48 X10*6/uL (4.60-5.80); Red Cell Distribution Width 12.6 % (11.0-16.0); White Blood Count 5.2 X10*3/uL (4.8-10.8)
[2024-10-01 07:49] LABS: Alanine Aminotransferase 19 U/L (0-40); Albumin Level 4.3 g/dL (3.5-5.0); Alkaline Phosphatase 50 U/L (39-117); Anion Gap 9 (12-20); Aspartate Amino Transferase 21 U/L (5-37); Blood Urea Nitrogen 9 mg/dL (9-16); Calcium 9.7 mg/dL (8.4-10.2); Carbon Dioxide 26 mmol/L (22-29); Chloride 106 mmol/L (96-108); Cholesterol 192 mg/dL (<200); Estimated Glomerular Filt Rate > 60; Glucose Fasting 92 mg/dL (60-99); HDL Cholesterol 64 mg/dL (>40); Iron 103 mcg/dL (45-160); LDL Cholesterol Calculated 100 mg/dL (<100); Percent Iron Saturation 39 % (15-50); Potassium 4.2 mmol/L (3.3-5.1); Sodium 137 mmol/L (135-145); Total Iron Binding Capacity 261 mcg/dL (228-428); Total Protein 7.2 g/dL (6.5-8.0); Triglycerides 143 mg/dL (<150); Unsaturated Iron Binding 158 ug/dL
[2024-10-01 08:33] LABS: Thyroid Stimulating Hormone 4.23 uIU/mL (0.32-4.0)
== END 2024-10-01 06:48 | disposition home or self-care (01) ==
LOC: HO.LAB 06:47
PROVIDERS: PCP Internal Medicine; Visit Provider Internal Medicine
DX: E78.5 Hyperlipidemia, unspecified (principal); E03.9 Hypothyroidism, unspecified; D64.9 Anemia, unspecified; M54.50 Low back pain, unspecified
CPT/HCPCS: 36415; 80053; 80061; 83540; 84443; 85025

== ENCOUNTER → 2024-10-22 14:47 | Outpatient (BNVA) | payer MEDICARE, MEDICAID, SELFPAY | PROVIDERS: PCP Internal Medicine ==

== ENCOUNTER 2024-12-11 12:16 | Outpatient (REF) | payer MEDICARE, SELFPAY ==
--- OUTSIDE RECORDS SUMMARY | 2024-12-11 13:01 | XMS_ITS | Clinical Summary ---
Author Organization [address] [facility] Address [address] [place] [address] Phone Care Team Providers Care Honey Liquefier Name Role Phone Lata Pritchett MD Primary Care Provider [phone] Social History Tobacco Use Types Packs/Day Years Used Date Smoking Tobacco: Never Assessed Sex and Gender Information Value Date Recorded Sex Assigned at Not on file Legal Sex Male 2:41 PM EST Gender Identity Not on file Sexual Orientation Not on file Plan of Treatment Upcoming Encounters Date Type Department Care Team ([facility] st Contact Info) Description 12/31/2024 1:30 PM EDT Consult Orthopedic Surgery - [place] [address] [id number] Omid Bingham DPM [address] [id number] Health Maintenance Due Date Last Done Comments DTaP,Tdap,and Td Vaccines (1 - Tdap) 01/31/1971 Pneumococcal Vaccine: 50+ Ye ars (1 of 1 - PCV) 01/31/2002 Zoster Vaccines (1 of 2) 01/31/2002 COVID-19 Vaccine ( - 2023-2 5 season) 2024 Influenza Vaccine (#1) 2024 Abdominal Aortic Aneurysm (A AA) Screen 12/01/2024 Cholesterol Screening (Lipid Panel) 12/01/2024 Colorectal Cancer Screening: Colonoscopy 12/01/2024 Depression Screening 12/01/2024 Falls Risk Assessment 12/01/2024 Hepatitis C Screening 12/01/2024 Medicare Annual Wellness Visit 12/01/2024 Social Influencers of Health Screening 12/01/2024 RSV Immunization Patients 60 + Years Old (1 - 1-dose 75+ series) 01/31/2027 HIB Vaccines Aged Out No longer eligi ble based on patient's age to complete this topic HPV Vaccines Aged Out No longer eligi ble based on patient's age to complete this topic Hepatitis A Vaccines Aged Out No long er eligible based on patient's age to complete this topic Hepatitis B Vaccines Aged Out No long er eligible based on patient's age to complete this topic IPV Vaccines Aged Out No longer eligi ble based on patient's age to complete this topic MMR Vaccines Aged Out No longer eligi ble based on patient's age to complete this topic Meningococcal ACWY Vaccine Aged Out N o longer eligible based on patient's age to complete this topic Meningococcal B Vacine Aged Out No lo nger eligible based on patient's age to complete this topic RSV Immunization Patients Un garcia 20 months Aged Out No longer eligible b ased on patient's age to complete this topic Varicella Vaccines Aged Out No longer eligible based on patient's age to complete this topic Insurance MEDICAID - [place] [id number] MEDICARE ADVANTAGE on file Care Teams Honey Liquefier Relationship Specialty Start Date End Date Lata Pritchett MD [address] [place] [address] , [address] [place] [address] Physician Associ D/B/A: [facility] PCP - General Internal Medicine 11/30/24
== END 2024-12-11 12:17 | disposition home or self-care (01) ==
LOC: HO.SH 12:16
PROVIDERS: Visit Provider Internal Medicine
DX: Z01.118 Encounter for examination of ears and hearing with other abnormal findings (principal); H90.3 Sensorineural hearing loss, bilateral
CPT/HCPCS: 92557; 92567

== ENCOUNTER 2025-01-13 10:18 | Outpatient (AMB) | payer MEDICARE, MEDICAID, SELFPAY ==
--- NOTE | 2025-01-13 10:37 | A.OFFPC_ITS ---
Vital Signs 01/13/25 10:40 Height 5 ft 7 in Weight 159 lb BMI 24.9 BP 128/70 Blood Pressure Location Lt brachial Position Sitting Intake Visit Reasons: Annual Exam Intake Note: Patient here for a physical exam Astronautical Engineer Required: Yes Astronautical Engineer Language: Leveler Name: Lata Pritchett MD Information Interpreted: non-clinical & clinical Accompanied by: Self / Same As Patient Allergies No Known Allergies Allergy (Verified 01/13/25 11:06) Medication List - Last Reconciled 01/13/25 by Lata Pritchett MD atorvastatin 10 mg PO DAILY 90 days bethanechol chloride 25 mg PO BID 90 days levothyroxine 50 mcg PO DAILY 90 days losartan 25 mg PO DAILY 90 days rivaroxaban (Xarelto) 20 mg PO DAILY 90 days tamsulosin 0.4 mg PO DAILY 90 days Tobacco use date assessed: 01/13/25 Fall risk assessment: No Falls in past year Last assessed Fall Risk: 01/13/25 Dental Screening Dental Screen Date: 01/13/25 Did you have a dental visit in the last 12 months?: No Did you have a dental problem in the last 6 months where you did not have access to dental care?: No Was dental information given to patient?: Patient has dentist HPI HPI Comments History of Present Illness Details The patient is a 74-year-old male presenting for an annual physical examination and vaccination review. During this visit, the patient was informed about the need for a tetanus vaccine. The pneumonia vaccine was mistakenly believed to have been provided in 2023, suggesting its recent completion. His vaccination history also includes the shingles and COVID vaccines. Last year's colonoscopy was incomplete due to pre-procedure dietary intake, with a follow-up scheduled for 2026. Medication management includes atorvastatin for hypercholesterolemia, which was excellent per reports from September, levothyroxine for hypothyroidism, which was normal in October, losartan for hypertension, rivaroxaban (Xarelto) for atrial fibrillation, and tamsulosin for benign prostatic hyperplasia. There is no noted medication allergy. Family history includes Alzheimer's in the father and arthritis and intracranial aneurysm in the mother. The patient has never smoked, and his latest lab results highlighted a low sodium level but normal glucose and liver function. - Tetanus vaccine required at the [employer] as TD not provided on-site. - Pneumonia vaccine administered, mistak enly marked as received in 2023. - Shingles, COVID, and flu vaccines rece ived. - Colonoscopy due in 2026 after incomple te procedure last year. - Cholesterol monitored, with excellent levels reported in September. - Thyroid function normal as of October. [facility] Medical History (Updated 01/13/25 @ 12:02 by Lata Pritchett MD) Dyslipidemia Diverticulosis Ascending aorta enlargement Physical exam Hypovitaminosis D BENNIE (obstructive sleep apnea) Gout Other and unspecified hyperlipidemia PAF (paroxysmal atrial fibrillation) Afib BPH (benign prostatic hyperplasia) Current use of senior care anticoagulation Hypothyroidism Essential hypertension Surgical History H/O colonoscopy Family History Father Alzheimer disease Mother Arthritis Other Mental health problem Social History Household Members: Other Household Members Other:: daughter Housing: Apartment Alcohol intake: current Alcohol intake frequency: holidays/special occasions only Alcohol type: beer Patient Tobacco Use Status: Never used Tobacco e-Cigarette/Vaping Use: Never Used Second Hand Smoke Exposure: No service: No Current occupational status: retired and disabled Cognitive needs: No Hearing needs: No Vision needs: Yes Questionnaire PHQ-9 Over the last 2 weeks, how often have you been bothered by any of the following problems? 1. Little interest or pleasure in doing things: not at all 2. Feeling down, depressed, or hopeless: not at all 3. Trouble falling or staying asleep, or sleeping too much: not at all 4. Feeling tired or having little energy: not at all 5. Poor appetite or overeating: not at all 6. Feeling bad about yourself - or that you are a failure or have let yourself or your family down: not at all 7. Trouble concentrating on things, such as reading the newspaper or watching television: not at all 8. Moving or speaking so slowly that other people could have noticed. Or the opposite - being so fidgety or restless that you have been moving around a lot more than usual: not at all 9. Thoughts that you would be better off or of hurting yourself in some way: not at all Total score: 0 Depression Screening Interpretation: Negative Depression Screening Done: Yes 57486 - PHQ-9 Billing: Yes Source: Developed by Drs. Colton Yañez, Lilia Louis, Fili Echevarria and colleagues, with an educational mesfin from [employer]. Thrive Questionnaire Date Thrive assessed: 01/13/25 I am a: Patient What is your living situation today?: I have a steady place to live Within the past 12 months, did the food you bought not last and you didn't have the money to get more?: Never true Within the past 12 months, did you worry whether your food would run out before you got money to buy more?: Never true Do you have trouble paying for medicines?: No Do you have trouble getting transportation to medical appointments?: No Do you have trouble paying your heating and electricity bill?: No Do you have trouble taking care of your child, family member or friend?: No Do you have trouble with day-to-day activities such as bathing, preparing meals, shopping, managing finances, etc.?: No Are you currently unemployed and looking for a job?: No Are you interested in more education?: No Please select the resources that you would like help with: None Currently or been in a relationship where the following occur: No concerns reported THRIVE Score: 0 AUDIT C Alcohol Use Questionnaire (AUDIT-C) 1. How often do you have a drink containing alcohol?: Monthly or less 2. How many drinks containing alcohol do you have on a typical day when you are drinking?: 1 or 2 3. How often do you have six or more drinks on one occasion?: Never Total Score: 1 Score Reviewed/Action Taken: No MICHAEL-7 AMB Questionnaire MICHAEL-7 Date MICHAEL - 7 assessed: 01/13/25 Feeling nervous, anxious, or on edge: 0 = Not at all Not being able to stop or control worryin = Not at all Worrying too much about different things: 0 = Not at all Trouble relaxin = Not at all Being so restless that it is hard to sit still: 0 = Not at all Becoming easily annoyed or irritable: 0 = Not at all Feeling afraid as if something awful might happen: 0 = Not at all Total MICHAEL-7 score (0-4 normal; 5-9 mild; 10-14 moderate; 15-21 severe): 0 Source: Developed by Drs. Colton Yañez, Lilia Louis, Fili Echevarria and colleagues, with an educational mesfin from [employer]. MICHAEL-7 Assessment Billing MICHAEL-7 Assessment Tool: MICHAEL-7 Assessment 56877 Review of Systems Const All systems reviewed & are unremarkable except as noted in HPI and below Card Denies chest pain at rest, Denies chest pain with activity, Denies edema, Denies irregular heart rhythm, Denies claudication, Denies dyspnea, Denies dyspnea on exertion, Denies orthopnea, Denies paroxysmal nocturnal dyspnea and Denies slow heart rate Resp Denies cough, Denies dyspnea and Denies dyspnea on exertion GI Denies abdominal pain, Denies change in bowel habits, Denies excessive flatus, Denies nausea and Denies vomiting Denies urinary hesitancy, Denies urinary incontinence and Denies urinary urgency Physical exam (Primary Care) Vital Signs: Last Vital Signs BP 128/70 01/13/25 10:40 BMI result Body Mass Index 24.9 Tobacco/Smoking Status: Tobacco use Status Tobacco use date assessed 01/13/25 01/13/25 10:46 Patient Tobacco Use Status Never used Tobacco 01/13/25 10:46 e-Cigarette/Vaping Use Never Used 01/13/25 10:46 PHQ-9: PHQ-9 Score PHQ-9: Total score 0 01/13/25 10:46 Depression Screening Interpretation: Negative Thrive Assessment: Date of Thrive Assessment Date Thrive assessed 01/13/25 01/13/25 10:46 Currently or been in a relationship where the following occur: No concerns reported [facility] Head: Yes normal to inspection, Yes normocephalic and Yes atraumatic Ears: external ears normal Eyes General: appearance normal, both eyes and all related structures Eyelids: Yes eyelids normal Conjunctivae: conjunctivae normal Neck Neck: Yes normal visual inspection and Yes supple Resp Effort & Inspection: normal respiratory effort Auscultation: clear to auscultation bilaterally Cardio Jugular venous distension: no JVD Rate: regular rate Rhythm: regular rhythm Heart sounds: S1 normal heart sound present and S2 normal heart sound present GI Inspection: Yes normal to inspection Palpation (GI): Soft to palpation and nontender Auscultation: normal bowel sounds Skin General skin exam: no rashes or lesions noted Neuro General: no focal motor deficits Extrem General: Yes full ROM Psych Appearance: grossly normal Coding Level of Care Code Est Pt Prev Care >65y(91859) Diagnoses Physical exam Z00.00 PAF (paroxysmal atrial fibrillation) I48.0 Additional Codes PHQ-9 - 85780 - PHQ-9 Billing: Yes ([id number]) MICHAEL-7 Assessment Billing - MICHAEL-7 Assessment Tool: MICHAEL-7 Assessment 19085 ([id number]) Time Spent (min) 30 Assessment & Plan Assessment & Plan (1) Physical exam: Code(s): Z00.00 - Encounter for general adult medical examination without abnormal findings Category: Medical (2) PAF (paroxysmal atrial fibrillation): Code(s): I48.0 - Paroxysmal atrial fibrillation Category: Medical Plan The patient is to receive his tetanus vaccine at the pharmacy, as part of his immunization schedule. Vaccination against pneumonia has already been provided, and he has also received the shingles and COVID vaccines. Future colonoscopy is scheduled for 2026 following last year's incomplete procedure. Routine monitoring of cholesterol and thyroid function will continue, with previous results showing satisfactory management. The patient's medication regimen, including atorvastatin for hypercholesterolemia, levothyroxine for hypothyroidism, losartan for hypertension, rivaroxaban Xarelto) for atrial fibrillation, and tamsulosin for benign prostatic hyperplasia, will continue as is. Follow-up for family-related conditions such as Alzheimer's will be reassessed in future visits. His recent lab results, while indicating a low sodium level, are not concerning against the backdrop of normal glucose and liver function. Patient was informed and verbally consented to the use of an ambient scribe for clinic note documentation during this visit. I discussed the importance of maintaining vaccination schedules and addressed the issue of tetanus which remains due. I clarified the records of the pneumonia vaccine which seem incorrect with a noted inflation to the year 2023. The shingles and COVID vaccines had been administered as per patient recall. A repeat colonoscopy is scheduled for 2026 to account for the last incomplete procedure, and I emphasized dietary adherence before the procedure. We reviewed medication regimens for hypercholesterolemia, hypothyroidism, hypertension, atrial fibrillation and benign prostatic hyperplasia, aligning them with previous lab results which were satisfactory. There was a discussion on the family history of Alzheimer's and arthritis which will be monitored presently. Recent lab results were communicated, particularly the low sodium but given normal glucose and liver function, the prognosis seems stable. I made note of the patient's inability to find technical solutions on his communication appli cation and encouraged acclimating over time with available supports. Orders: Orders Lipid Panel 4 Months E78.5 - Hyperlipidemia, unspecified Thyroid Stimulating Hormone 4 Months E03.9 - Hypothyroidism, unspecified Comprehensive [place]. Panel Fast 4 Months Z00.00 - Encounter for general adult medical examination without abnormal findings Patient Instructions: - Obtain tetanus vaccine from the pharmacy at your earliest convenience. - Await repeat colonoscopy in 2026 and ensure dietary compliance beforehand. - Continue with current medication regimen for hypercholesterolemia, h ypothyroidism, hypertension, atrial fibrillation, and prostatic hyperplasia. - Follow up on any symptoms related to family history of Alzheimer's or arthritis. - Monitor and maintain general health through regular follow-up appointments. - Engage in discussions about medication or test findings, if concerns arise.
[2025-01-13 10:40] VITALS: BP 128/70; BMI 24.9
--- OUTSIDE RECORDS SUMMARY | 2025-01-13 12:00 | XMS_ITS | Clinical Summary ---
Author Organization [address] [place] [address] Address 175 [place] [address] Phone Care Team Providers Care Manufacturing Engineering Professor Name Role Phone Lata Pritchett MD Primary Care Provider [phone] Allergies No known active allergies Medications silver sulfADIAZINE (SILVADENE, SSD) 1 % creamIndications: ingrown toenail Apply topically 1 (one) time each day for 10 days. Apply to toe everyday for two weeks apply regular bandaid 25 g 01/22/20 25 Active Encounters Date Type Department Care Team Description 01/11/2025 10:45 AM EDT Procedure visit Orthopedic Surgery [place] [address] [phone] Omid Bingham DPM Cellulitis of left foot (Primary Dx); Ingrown toenail 12/31/2024 1:30 PM EDT Consult Orthopedic Surgery [facility] [address] [place] [phone] Omid Bingham DPM Pain in left foot (Primary Dx); Ingrowing nail from Last 3 Months Social History Tobacco Use Types Packs/Day Years Used Date Smoking Tobacco: Never Assessed Sex and Gender Information Value Date Recorded Sex Assigned at Not on file Legal Sex Male 2:41 PM EST Gender Identity Not on file Sexual Orientation Not on file Last Filed Vital Signs Vital Sign Reading Time Taken Comments Blood Pressure - - Pulse - - Temperature - - Respiratory Rate - - Oxygen Saturation - - Inhaled Oxygen Concentration - - Weight 72.6 kg (160 lb) 01/11/2025 11:25 AM EDT Height 170.2 cm (5' 7.01 ) 01/11/2025 11:25 AM E DT Body Mass Index 25.05 01/11/2025 11:25 AM EDT Plan of Treatment Upcoming Encounters Date Type Department Care Team (Late st Contact Info) Description 2025 2:00 PM EDT Office Visit Orthopedic Surgery - [place] 250 175 [facility] 250 [place] [address] Omid Bingham, DPM 175 [facility] 250 [place] [address] Health Maintenance Due Date Last Done Comments DTaP,Tdap,and Td Vaccines (1 - Tdap) 01/31/1969 Influenza Vaccine (#1) 2024 , 06/22/2022, 06/02/2021 Abdominal Aortic Aneurysm (AAA) Screen 12/01/2024 Cholesterol Screening (Lipid Panel) 12/01/2024 Colorectal Cancer Screening: Colonoscopy 12/01/2024 Depression Screening 12/01/2024 Falls Risk Assessment 12/01/2024 Hepatitis C Screening 12/01/2024 Medicare Annual Wellness Visit 12/01/2024 Social Influencers of Health Screening 12/01/2024 RSV Immunization Patients 60+ Years Old (1 - 1-dose 75+ series) 01/31/2027 Pneumococcal Vaccine: 50+ Years Completed 06/05/2024 COVID-19 Vaccine Completed 08/07/2024, 11/2022, 03/09/2022, Additional history exists Zoster Vaccines Completed 08/07/2024, 06/05/2024 HIB Vaccines Aged Out No longer eligi [...] to complete this topic RSV Immunization Patients Under 20 months Aged Out No longer eligible based on patient's age to complete this topic Varicella Vaccines Aged Out No longer eligible based on patient's age to complete this topic Insurance MEDICAID - [place] HUMAN MEDICARE ADVANTAGE on file Care Teams Manufacturing Engineering Professor Relationship Specialty Start Date End Date Lata Pritchett MD [address] [place] [address] , [address] [facility] Associ D/B/A: [facility] [place] PCP - General Internal Medicine 11/30/24
--- OUTSIDE RECORDS SUMMARY | 2025-01-13 12:00 | XMS_ITS | Encounter Summary ---
Author Organization [email or web address] Address [address] [place] [address] Care Team Providers Care Trimming Operator Name Role Phone Lata Pritchett MD Primary Care Provider [phone] Reason for Visit * Reason Comments Ingrown Toenail * Consultation (Routine) - Closed Specialty Diagnoses / Procedures Referred By Contac t Referred To Contact Podiatry / Orthopaedic Surgery Diagnoses Ingrowing nail Procedures AK VISIT OFFICE OUTPATIENT ESTABLISHED MODERATE LEVEL Lata Pritchett MD [address] [place] [address] [facility], [address] Physician Associ D/B/A: [facility] [place], [place] Phone: tel: fax: Omid Bingham DPM [address] [address] Phone: tel: fax: Referral ID Status Reason Start Date Expiration Date V isits Requested Visits Authorized [id number] Closed Specialty Services Required 11/30/2024 11/30/2025 1 1 Encounter Details Date Type Department Care Team (Late st Contact Info) Description 12/31/2024 1:30 PM EDT Consult Orthopedic Surgery - [place] [address] 175 [facility] [address] [place] [phone] Omid Bingham DPM [address] [address] Pain in left foot (Primary Dx); Ingrowing nail Social History Tobacco Use Types Packs/Day Years Used Date Smoking Tobacco: Never Assessed Sex and Gender Information Value Date Recorded Sex Assigned at Not on file Legal Sex Male 2:41 PM EST Gender Identity Not on file Sexual Orientation Not on file documented as of this encounter Last Filed Vital Signs Vital Sign Reading Time Taken Comments Blood Pressure - - Pulse - - Temperature - - Respiratory Rate - - Oxygen Saturation - - Inhaled Oxygen Concentration - - Weight 72.6 kg (160 lb) 12/31/2024 1:26 PM EDT Height 170.2 cm (5' 7 ) 12/31/2024 1:26 PM EDT Body Mass Index 25.06 12/31/2024 1:26 PM EDT documented in this encounter Progress Notes * Omid Bingham DPM - 12/31/2024 1:30 PM EDT Referring MD: Lata Pritchett MD Last PCP visit: 12/15/2024 IDENTIFIER: @TITLE@ Clint Abrams is a 74 y.o. year old male who presents for consultation. CC: Left foot pain HPI: Patient presents today with complaints of a painful toenail. Patient with concerns of an ingrowing hallux left toenail. Patient states for the last few months they have felt a sharp pain in the corner of the great toe. Patient denies any incident or trauma. States that the area is red and swollen and aggravated with closed toe shoe gear. Patient admits to drainage coming from the area. Patient has tried to remove the corner themselves, however failed. Patient here for evaluation and treatment. ROS: GENERAL: Pt denies nausea, fever, vomiting, chills, or shortness of breath. Pt in NAD. CARDIOLOGY: pt denies chest pain, palpitations LUNGS: pt denies shortness of breath MUSCULOSKELETAL: See HPI, otherwise no joint pain or swelling, back pain, or muscle pain. SKIN: see HPI, otherwise no lesions, rash or itching NEURO: No persistent headache, weakness or numbness The remainder of the review of systems is noncontributory PAST MEDICAL HISTORY: There is no problem list on file for this patient. SOCIAL HISTORY: Social History Tobacco Use Smoking status: Not on file Smokeless tobacco: Not on file Substance Use Topics Alcohol use: Not on file ACTIVE MEDICATIONS: No outpatient medications have been marked as taking for the 12/31/24 encounter (Consult) with Omid Bingham DPM. ALLERGIES: @ALL@ PHYSICAL EXAM: Height 1.702 m (67 ), weight 72.6 kg (160 lb). PODIATRIC EXAMINATION: GENERAL: Patient appears well nourished, with NAD. VASCULAR: Dorsalis pedis pulses are 2/4 bilaterally and Posterior tibial pulses are 2/4 bilaterally. Capillary filling time within normal limits the digits. No pallor on elevation or rubor on dependency. Positive hair growth. No varicosities. Denies rest pain or claudication pain. NEUROLOGICAL: Sharp/dull sensation intact, protective sensation intact 10/10 with 5.07 semmes amy bilaterally, vibratory sensation with tuning fork intact to the tibial tuberosity. ORTHOPEDIC: Good muscle strength 5/5 of all flexors and extensors. Dorsi flexion of ankle ,10 degrees, plantar flexion WNL. No muscle atrophy. DERMATOLOGICAL:.Thickened misshapened nail to the lateral border of the left great toe with rednessand swelling at the soft tissue border BIOMECHANICS: STJ ROM wnl, MTJ ROM wnl, 1st MPJ ROM wnl. IMPRESSION: 1. Pain in left foot 2. Ingrowing nail PLAN: Pt was seen and examined, history reviewed. Patient with findings of ingrown toenail to the left great toe. Patient does require a procedure matrixectomy to definitively treat the ingrowth and pain. Patient is currently on blood thinners Eliquis and was educated that the open wound will continue to bleed and give a less than acceptable result using the phenol. Patient will return next Saturday for procedure and stay off of his Eliquis for2 days prior to procedure. Patient verbalized understanding Omid Bingham DPM cc: Lata Pritchett MD documented in this encounter Plan of Treatment Upcoming Encounters Date Type Department Care Team (Late st Contact Info) Description 2025 2:00 PM EDT Office Visit Orthopedic Surgery - [place] [address] [phone] Omid Bingham DPM [address] [address] documented as of this encounter Visit Diagnoses Diagnosis Pain in left foot- Primary Pain in soft tissues of limb Ingrowing nail documented in this encounter Orders Outpatient Referral Count Last Ordered Date Fir st Ordered Date AMB REFERRAL TO PODIATRY 1 12/31/2024 documented in this encounter Care Teams Trimming Operator Relationship Specialty Start Date End Date Lata Pritchett MD 2 [facility] , [address] [facility] Physician Associ D/B/A: [facility] SON[place] PCP - General Internal Medicine 11/30/24 documented as of this encounter
--- OUTSIDE RECORDS SUMMARY | 2025-01-13 12:00 | XMS_ITS | Encounter Summary ---
Author Organization [employer] Address [address] [place] [phone] Care Team Providers Care Commercial Leasing Agent Name Role Phone Lata Pritchett MD Primary Care Provider [phone] Reason for Visit * Reason Comments Nail Problem Fu nail procedure Encounter Details Date Type Department Care Team (Latest Contact Info) Description 01/11/2025 10:45 AM EDT Procedure visit Orthopedic Surgery - [place] [address] [phone] Omid Bingham DPM [address] [address] Cellulitis of left foot (Primary Dx); Ingrown toenail Social History Tobacco Use Types Packs/Day Years [...] Mass Index 25.05 01/11/2025 11:25 AM EDT documented in this encounter Ordered Prescriptions Prescription Sig Dispense Quantity Refills Last Filled Start Date End Date silver sulfADIAZINE (SILVADENE, SSD) 1 % creamIndications:i ngrown toenail Apply topically 1 (one) time each day for 10 days. Apply to toe everyday for two weeks apply regular bandaid 25 g 01/11/2025 documented in this encounter Progress Notes * Omid Bingham DPM - 01/11/2025 10:45 AM EDT Referring MD: Shreyas Last PCP visit: 12/15/2024 IDENTIFIER: @TITLE@ Clint Abrams is a 74 y.o. year old male who presents for consultation. CC: Left foot pain HPI: Patient returns today with complaints of a painful toenail. [...] drainage coming from the area. Patient has attempted to use soaking exercises with continued pain to the lateral border of the left great toe. ROS: GENERAL: Pt denies nausea, fever, vomiting, [...] Alcohol use: Not on file ACTIVE MEDICATIONS: Outpatient Medications Marked as Taking for the 01/11/25 encounter (Procedure visit) with Omid Bingham DPM Medication Sig Dispense Refill silver sulfADIAZINE (SILVADENE, SSD) 1 % cream Apply topically 1 (one) time each day for 10 days. Apply to toe everyday for two weeks apply regular bandaid 25 g 0 ALLERGIES: @ALL@ PHYSICAL EXAM: Height 1.702 m (67.01 ), weight 72.6 kg (160 lb). PODIATRIC [...] degrees, plantar flexion WNL. No muscle atrophy. Arthritic changes in the midfoot bilaterally with dorsalexostoses that are palpable. Contractures of digits 2 through 5 DERMATOLOGICAL:.Continued thickened misshapened nail to the lateral border of the left great toe with redness and swelling at the soft tissue border BIOMECHANICS: STJ ROM wnl, MTJ ROM wnl, 1st MPJ ROM wnl. IMPRESSION: 1. Cellulitis of left foot 2. Ingrown toenail PLAN: Pt was seen and examined, history reviewed. Patient with findings of soft tissue infection to the lateral border of the left great toe. Patientwas given a prescription for Silvadene cream instructed to use it daily under sterile occlusive dressing. Patient will return in 2 weeks for site check Patient found to have an ingrown left hallux toenail. The patients foot was prepped in aseptic technique. Local anesthesia was injected into the base of the offending nail. Using sharp dissection, the involved portion of nail plate was freed to the proximal nail fold and excised en toto. Phenol medication was then applied to the underlying nail bed and nail root for approximately 45 seconds -1 minute followed by an alcohol flush. This process was repeated three times. A mild compression dressing was applied to the operative site. The patient was given written and oral instructions for home care. The patient will be followed up within 2 week. Omid Bingham DPM documented in this encounter Plan of Treatment Upcoming Encounters Date Type Department Care Team (Late st Contact Info) Description 2025 2:00 PM EDT Office Visit Orthopedic Surgery - [place] [address] [phone] Omid Bingham DPM [address] [address] documented as of this encounter Visit Diagnoses Diagnosis Cellulitis of left foot- Primary Ingrown toenail Ingrowing nail documented in this encounter Care Teams Commercial Leasing Agent Relationship Specialty Start Date End Date Lata Pritchett MD 2 [facility] , [address] [facility] Physician Associ D/B/A: [facility] [place] PCP - General Internal Medicine 11/30/24 documented as of this encounter
== END 2025-01-13 11:21 | disposition home or self-care (01) ==
LOC: HO.HMCH 10:18
PROVIDERS: PCP Internal Medicine; Visit Provider Internal Medicine
DX: Z00.00 Encounter for general adult medical examination without abnormal findings (principal); I48.0 Paroxysmal atrial fibrillation

== ENCOUNTER → 2025-01-13 10:18 | Outpatient (BNVA) | payer MEDICARE, MEDICAID, SELFPAY | PROVIDERS: PCP Internal Medicine; Visit Provider Internal Medicine | DX: Z00.00 Encounter for general adult medical examination without abnormal findings (principal); I48.0 Paroxysmal atrial fibrillation | CPT/HCPCS: 96127; 99397 ==

== ENCOUNTER → 2025-02-01 14:55 | Outpatient (REF) | payer MEDICARE, MEDICAID, SELFPAY ==
--- NOTE | 2025-02-01 14:58 | CA_ITS ---
Transthoracic Echocardiogram Patient (Last, First, Middle): Michael Cuevas, Gender: Male Date of : 1950 Age: 75 Procedure Date: 02/01/2025 Procedure Type: Transthoracic Echocardiogram Location: OP Height: 170.18 cm Weight: 72.12 kg BSA: 1.83 m2 Heart Rate: bpm BP: 128 / 70 mmHg Communications Manager: KERRI Referring MD: Oliverio Starks MD Symptoms: I77.89 - Other specified disorders of arteries and arterioles Study Quality: Adequate Conclusions: - 1. Normal LV ejection fraction 55-60% with impaired relaxation filling pattern 2. Moderately dilated left atrium 3. Mild aortic regurgitation 4. Mildly dilated ascending aorta at 4.1 cm 5. Normal RV systolic pressure 6. No gross pericardial effusion Findings Left Ventricle Normal left ventricular size, thickness, and systolic function. The visually estimated ejection fraction is between 55-60%. Spectral Doppler is indicative of an impaired relaxation filling pattern. E/E prime ratio is between 8 and 15 consistent with indeterminate filling pressures. Peak GLS is -17.4%, borderline low. Right Ventricle Normal right ventricular cavity size and systolic function. Atria The left atrium is moderately dilated. There is lipomatous hypertrophy of the interatrial septum. There is no evidence of interatrial shunt. The right atrium is likely dilated. Aortic Valve There is mild calcification of the aortic valve. There is no aortic valve stenosis. There is mild aortic valve regurgitation. Mitral Valve Normal mitral valve structure and function. There is trace mitral valve regurgitation. There is no mitral valve stenosis. Pulmonic Valve The pulmonic valve is likely normal. Tricuspid Valve Normal tricuspid valve structure. There is trace tricuspid valve regurgitation. The right ventricular systolic pressure is normal. The right ventricular systolic pressure is 25 mmHg. Normal right atrial pressure. There is no evidence of pulmonary hypertension. Great Vessels The pulmonary artery was not well visualized. There is mild dilatation of the ascending aorta measuring 4.10 cm. Small plaque is seen in the sino tubular ridge. Venous The inferior vena cava is normal in size and collapses greater than 50% with inspiration. Pericardium/Pleural There is no evidence of pericardial effusion. Prior Study Comparison No significant change compared to prior study dated: 01/21/2023. Measurements 2D Linear Measurements IVSd: 0.78 0.6-0.9/0.6-1.0 cm LVIDd: 5.68 3.9-5.3/4.2-5.9 cm LVIDd Index: 3.10 2.4-3.2/2.2-3.1 cm/m2 LVIDs: 3.40 2.0-3.6 cm LVPWd: 0.64 0.7-1.1 cm LA Diam: 3.50 2.7-3.8/3.0-4.0 cm LAIDs Index: 1.91 1.5-2.3 cm/m2 LV Mass: 181.33 67-162/88-224 g LV Mass Index: 99.09 43-95/49-115 g/m2 LVOT Diam: 2.00 3.0+(-)1.3 cm 2D Systolic Function EF 4C: 52.10 >55% EF 2C: 61.50 >55% EF BiP: 57.40 >55% Mitral Valve MV Pk E: 0.58 MV PK A: 0.63 MV Decel Time: 229.00 E/A: 0.90 E'Lateral: 6.09 E'Medial: 5.98 E/E' Med: 9.70 E/E' Lat: 9.50 PHT: 67.00 MVA PHT: 3.28 Decel [place]: 2.53 Aortic Valve AoV Pk Rubin: 1.54 AoV Mn Rubin: 1.06 AoV VTI: 0.36 AoV Pk Grad: 9.00 Aov Mn Grad: 5.00 DHAVAL Cont.VTI: 1.93 AI Pk Rubin: 4.39 AI [place]: 1.85 LVOT LVOT Pk Rubin: 0.95 LVOT Mn Rubin: 0.66 LVOT VTI: 0.22 LVOT Pk Grad: 4.00 LVOT Mn Grad: 2.00 LVOT Diam: 2.00 LVOT Area: 3.14 Diastolic Function MV Pk E: 0.58 MV Pk A: 0.63 E/A: 0.90 E'Medial: 5.98 E/E' Med: 9.70 E' Laterial: 6.09 E/E' Lat: 9.50 Right Ventricle TAPSE (mm): 27.40 TVS' Rubin: 13.50 Tricuspid Valve TR Pk Rubin: 2.36 TR Pk Grad: 22.00 RA Press: 3.00 RVSP: 25.00 Great Vessels Aorta Sinus of Valsalva: 3.65 2.0-3.[address] [place]: 3.24 1.7-3.4 cm Ao Asc: 4.10 2.1-3.4 cm Ao Arch: 3.40 Updated in Other Vendor System with Status of Final Alvarez Ortiz MD electronically signed on 02/02/2025 12:07:05 PM with status of Final
--- OUTSIDE RECORDS SUMMARY | 2025-02-01 17:28 | XMS_ITS | Encounter Summary ---
Author Organization [email or web address] [facility] Address [address] [place] [address] Care Team Providers Care Insulation Estimator Name Role Phone Lata Pritchett MD Primary Care Provider [phone] Reason for Visit * Reason Comments Nail Problem Fu from nail removal Encounter Details Date Type Department Care Team (Late st Contact Info) Description 2025 2:00 PM EDT Office Visit Orthopedic Surgery [facility] [address] [phone] Omid Bingham DPM [address] [address] Social History Tobacco Use Types Packs/Day Years [...] - - Weight 72.6 kg (160 lb) 2025 1:59 PM EDT Height 170.2 cm (5' 7.01 ) 2025 1:59 PM ED T Body Mass Index 25.05 2025 1:59 PM EDT documented in this encounter Plan of Treatment Upcoming Encounters Date Type Department Care Team (Late st Contact Info) Description 02/22/2025 2:00 PM EDT Office Visit Orthopedic Surgery [facility] [address] [phone] Omid Bingham DPM [address] [address] documented as of this encounter Visit Diagnoses Not on filedocumented in this encounter Historical Medications * This list may reflect changes made after this encounter. tamsulosin (FLOMAX) 0.4 mg 24 hr capsule Take 1 capsule (0.4 mg total) by mouth 1 (one) time each day. 11/16/2024 silver sulfADIAZINE (SILVADENE, SSD) 1 % cream APPLY TOPICALLY ONE TIME EACH DAY FOR 10 DAYS. APPLY TO TOE EVERYDAY FOR TWO WEEKS. APPLY A REGULAR BANDAID 01/11/2025 Xarelto 20 mg tablet 01/31/2025 predniSONE (DELTASONE) 20 mg tablet TOME DOS TABLETAS VIA ORAL CADA BILL MARY 5 KRISHNAN 04/06/2024 metoprolol succinate (TOPROL-XL) 25 mg 24 hr tablet Take 1 tablet (25 mg total) by mouth 1 (one) time each day. 01/17/2025 losartan (COZAAR) 25 mg tablet Take 1 tablet (25 mg total) by mouth 1 (one) time each day. 11/13/2024 levothyroxine (SYNTHROID, LEVOTHROID) 50 mcg tablet Take 1 tablet (50 mcg total) by mouth 1 (one) time each day. 10/05/2024 docusate sodium (COLACE) 100 mg capsule Take 1 capsule (100 mg total) by mouth 1 (one) time each day. 02/16/2024 bethanechol (URECHOLINE) 25 mg tablet Take 1 tablet (25 mg total) by mouth 2 (two) times a day. 11/30/2024 atorvastatin (LIPITOR) 10 mg tablet Take 1 tablet (10 mg total) by mouth 1 (one) time each day. 12/07/2024 added in this encounter Care Teams Insulation Estimator Relationship Specialty Start Date End Date Lata Pritchett MD [address] [place] [address] , [address] Physician Associ D/B/A: [facility] SON[facility] King PCP - General Internal Medicine 11/30/24 documented as of this encounter
--- OUTSIDE RECORDS SUMMARY | 2025-02-01 17:28 | XMS_ITS | Clinical Summary ---
Author Organization 175 [facility] Address 175 [place] [address] Phone Care Team Providers Care Pharmacy Cashier Name Role Phone Lata Pritchett MD Primary Care Provider [phone] Allergies No known active allergies Medications atorvastatin (LIPITOR) 10 mg tablet Take 1 tablet (10 mg total) by mouth 1 (one) time each day. 5 Active bethanechol (URECHOLINE) 25 mg tablet Take 1 tablet (25 mg total) by mouth 2 (two) times a day. 5 Active docusate sodium (COLACE) 100 mg capsule Take 1 capsule (100 mg total) by mouth 1 (one) time each day. 4 Active levothyroxine (SYNTHROID, LEVOTHROID) 50 mcg tablet Take 1 tablet (50 mcg total) by mouth 1 (one) time each day. 4 Active losartan (COZAAR) 25 mg tablet Take 1 tablet (25 mg total) by mouth 1 (one) time each day. 5 Active metoprolol succinate (TOPROL-XL) 25 mg 24 hr tablet Take 1 tablet (25 mg total) by mouth 1 (one) time each day. 5 Active predniSONE (DELTASONE) 20 mg tablet TOME DOS TABLETAS VIA ORAL CADA BILL MARY 5 KRISHNAN 4 Active Xarelto 20 mg tablet 5 Active silver sulfADIAZINE (SILVADENE, SSD) 1 % cream APPLY TOPICALLY ONE TIME EACH DAY FOR 10 DAYS. APPLY TO TOE EVERYDAY FOR TWO WEEKS. APPLY A REGULAR BANDAID 5 Active tamsulosin (FLOMAX) 0.4 mg 24 hr capsule Take 1 capsule (0.4 mg total) by mouth 1 (one) time each day. 01/27/202 5 Active silver sulfADIAZINE (SILVADENE, SSD) 1 % creamIndications: ingrown toenail Apply topically 1 (one) time each day for 10 days. Apply to toe everyday for two weeks apply regular bandaid 25 g 01/22/20 25 Encounters Date Type Department Care Team Description 2025 2:00 PM EDT Office Visit Orthopedic Surgery [place] [address] [phone] Omid Bingham DPM 01/11/2025 10:45 AM EDT Procedure visit Orthopedic [place] [address] [phone] Omid Bingham DPM Cellulitis of left foot (Primary Dx); Ingrown toenail 12/31/2024 1:30 PM EDT Consult Orthopedic [place] [address] [phone] Omid Bingham DPM Pain in left foot [...] Mass Index 25.05 2025 1:59 PM EDT Plan of Treatment Upcoming Encounters Date Type Department Care Team (Late Contact Info) Description 02/22/2025 2:00 PM EDT Office Visit Orthopedic [place] [address] [phone] Omid Bingham DPM [address] [address] Health Maintenance Due Date Last Done Comments Abdominal Aortic Aneurysm (AAA) Screen 12/01/2024 Cholesterol Screening (Lipid Panel) 12/01/2024 Colorectal Cancer Screening: Colonoscopy 12/01/2024 Depression Screening 12/01/2024 Falls Risk Assessment 12/01/2024 Hepatitis C Screening 12/01/2024 Medicare Annual Wellness Visit 12/01/2024 Social Influencers of Health Screening 12/01/2024 COVID-19 Vaccine ( season) 2025 08/07/2024, 07/22/2023, 03/09/2022, Additional history exists Influenza Vaccine (Season Ended) 2025 06/17/2023, 06/22/2022, 06/02/2021 RSV Immunization Adult Patients (1 - 1-dose 75+ series) 01/31/2027 DTaP,Tdap,and Td Vaccines (2 - Td or Tdap) 01/13/2035 01/13/2025 Pneumococcal Vaccine: 50+ Years Completed 06/05/2024 Zoster Vaccines Completed 08/07/2024, 06/05/2024 HIB Vaccines [...] age to complete this topic Meningococcal B Vaccine Aged Out No l onger eligible based on patient's age to complete this topic RSV Immunization Patients Under 20 months Aged Out No longer eligible based on patient's age to complete this topic Varicella Vaccines Aged Out No longer eligible based on patient's age [place] [id number] MEDICA[place] H[place] MEDIC[place] AD[place]ANTAGE on file Care Teams Pharmacy Cashier Relationship Specialty Start Date End Date Lata Pritchett MD [address] [place] [address] , [address] [facility] Physician Associ D/B/A: [facility] [place] PCP - General Internal Medicine 11/30/24
== END ==
LOC: HO.CARD 14:55
PROVIDERS: PCP Internal Medicine; Visit Provider Internal Medicine
DX: I71.21 Aneurysm of the ascending aorta, without rupture (principal)
CPT/HCPCS: 93306

== ENCOUNTER → 2025-02-01 14:58 | Outpatient (BNV) | payer MEDICARE, MEDICAID, SELFPAY | PROVIDERS: PCP Internal Medicine; Visit Provider Internal Medicine Cardiovascular Disease | DX: I35.1 Nonrheumatic aortic (valve) insufficiency (principal); I77.810 Thoracic aortic ectasia | CPT/HCPCS: 93306; 93356 ==

== ENCOUNTER 2025-02-06 07:02 | Outpatient (REF) | payer MEDICARE, MEDICAID, SELFPAY ==
--- OUTSIDE RECORDS SUMMARY | 2025-02-06 07:04 | XMS_ITS | Clinical Summary ---
Author Organization 175 [facility] Address 175 [place] [address] Phone Care Team Providers Care Contract Agent Name Role Phone Lata Pritchett MD Primary Care Provider [phone] Allergies No known active allergies Medications atorvastatin [...] 1 (one) time each day. 5 Active doxycycline (Vibramycin) 100 mg capsule Take 1 capsule (100 mg total) by mouth 2 (two) times a day for 7 days. 14 capsule 5 02/09/20 25 Active silver sulfADIAZINE (SILVADENE, SSD) 1 % creamIndications: ingrown toenail Apply topically 1 (one) time each day for 10 days. Apply to toe everyday for two weeks apply regular bandaid 25 g 01/22/20 25 Encounters Date Type Department Care Team Description 2025 2:00 PM EDT Office Visit Orthopedic Surgery [address] [phone] Omid Bingham DPM Cellulitis of left foot (Primary Dx); Open wound of left great toe, initial encounter 01/11/2025 10:45 AM EDT Procedure visit Orthopedic [place] [address] [address] Omid Bingham DPM Cellulitis of left foot (Primary Dx); Ingrown toenail 12/31/2024 1:30 PM EDT Consult Orthopedic Surgery [place] [address] [address] Omid Bingham DPM Pain in left foot [...] Upcoming Encounters Date Type Department Care Team ([facility] Contact Info) Description 02/22/2025 2:00 PM EDT Office Visit Orthopedic Surgery - [place] [address] 175 [facility] 250 [place] [phone] Omid Bingham, DPAmber 175 [facility] [place] [address] [place] [address] Health Maintenance Due Date Last Done Comments [...] HUMAN MEDICARE ADVANTAGE on file Care Teams Contract Agent Relationship Specialty Start Date End Date Lata Pritchett MD [address] [place] [address] , [address] Physician Associ D/B/A: [facility] [place], [place] PCP - General Internal Medicine 11/30/24
--- OUTSIDE RECORDS SUMMARY | 2025-02-06 07:04 | XMS_ITS | Encounter Summary ---
Author Organization [facility] Address [address] [place] [address] Care Team Providers Care Rn Training Name Role Phone Lata Pritchett MD Primary Care Provider [phone] Reason for Visit * Reason Comments Nail Problem Fu from nail removal Encounter Details Date Type Department Care Team (Late st Contact Info) Description 2025 2:00 PM EDT Office Visit Orthopedic Surgery - [place] [address] [address] [phone] Omid Bingham DPM [address] [id number] Cellulitis of left foot (Primary Dx); Open wound of left great toe, initial encounter Social History Tobacco Use Types Packs/Day Years [...] 1:59 PM EDT documented in this encounter Ordered Prescriptions Prescription Sig Dispense Quantity Refills Last Filled Start Date End Date doxycycline (Vibramycin) 100 mg capsule Take 1 capsule (100 mg total) by mouth 2 (two) times a day for 7 days. 14 capsule 2025 documented in this encounter Progress Notes * Omid Bingham DPM - 2025 2:00 PM EDT Referring MD: Shreyas Last PCP visit: 12/15/2024 IDENTIFIER: @TITLE@ Clint Abrams is a 75 y.o. year old male who presents for consultation. CC: Left foot pain HPI: Patient is status post matrixectomy of the left hallux. Patient has been doing well keeping the bandages clean dry and intact and using Silvadene cream daily. Patient is now ambulating without issuesand able to go to work without taking any [id number] pain medication or anti-inflammatory. Patient notes that there was some drainage that has subsided over the past couple of days. Patient relates that there is some redness that seems prominent in the lateral border. Patient denies fever nausea vomiting shortness of breath. Patient is anticipating return to full activity. ROS: GENERAL: Pt denies nausea, fever, vomiting, [...] Outpatient Medications Marked as Taking for the 02/01/25 encounter (Office Visit) with Omid Bingham DPM Medication Sig Dispense Refill atorvastatin (LIPITOR) 10 mg tablet Take 1 tablet (10 mg total) by mouth 1 (one) time each day. bethanechol (URECHOLINE) 25 mg tablet Take 1 tablet (25 mg total) by mouth 2 (two) times a day. docusate sodium (COLACE) 100 mg capsule Take 1 capsule (100 mg total) by mouth 1 (one) time each day. levothyroxine (SYNTHROID, LEVOTHROID) 50 mcg tablet Take 1 tablet (50 mcg total) by mouth 1 (one) time each day. losartan (COZAAR) 25 mg tablet Take 1 tablet (25 mg total) by mouth 1 (one) time each day. metoprolol succinate (TOPROL-XL) 25 mg 24 hr tablet Take 1 tablet (25 mg total) by mouth 1 (one) time each day. predniSONE (DELTASONE) 20 mg tablet TOME DOS TABLETAS VIA ORAL CADA BILL MARY 5 KRISHNAN silver sulfADIAZINE (SILVADENE, SSD) 1 % cream APPLY TOPICALLY ONE TIME EACH DAY FOR 10 DAYS. APPLYTO TOE EVERYDAY FOR TWO WEEKS. APPLY A REGULAR BANDAID tamsulosin (FLOMAX) 0.4 mg 24 hr capsule Take 1 capsule (0.4 mg total) by mouth 1 (one) time each day. Xarelto 20 mg tablet ALLERGIES: @ALL@ PHYSICAL EXAM: Height 1.702 m [...] palpable. Contractures of digits 2 through 5 DERMATOLOGICAL:.Postprocedural changes of the lateral aspect of the left hallux. Some redness is localized cellulitis and drainage coming from the area. BIOMECHANICS: STJ ROM wnl, MTJ ROM wnl, 1st MPJ ROM wnl. IMPRESSION: 1. Cellulitis of left foot 2. Open wound of left great toe, initial encounter PLAN: Pt was seen and examined, history reviewed. Patient suffering with continued cellulitis to the left great toe. Patient was placed on doxycycline 100 mg 3 times daily for 7 days. Patient was educated that he needs to take his socks and shoes off of his feet while at home to allow for the wound to air out and not stay in a moist bandage. Patient will return in 2 weeks for site check Patient is now s/p partial nail avulsion of the left hallux. Patient is going to start epsom salt soaks daily for 15-20 minute duration to help with remaining inflammation and erythema. Patient may start dressing the toe with just a bandaid. If no drainage seen on bandaid, no dressingis needed. Patient understands their instructions. Patient also to try and put toe into closed toe shoegear over the next two weeks. Patient can RTC in 2 weeks, if continued pain and soreness. Omid Bingham DPM documented in this encounter Plan of Treatment Upcoming Encounters Date Type Department Care Team (Late st Contact Info) Description 02/22/2025 2:00 PM EDT Office Visit Orthopedic Surgery - [place] [address] [address] [address] Omid Bingham DPM [address] [address] documented as of this encounter Visit Diagnoses Diagnosis Cellulitis of left foot- Primary Open wound of left great toe, initial encounter documented in this encounter Historical Medications * This [...] 12/07/2024 added in this encounter Care Teams Rn Training Relationship Specialty Start Date End Date Lata Pritchett MD [address] [place] [address] Physician Associ D/B/A: [facility] [place] PCP - General Internal Medicine 11/30/24 documented as of this encounter
[2025-02-06 08:35] LABS: Prostate Specific Antigen 1.62 ng/mL (<0.05-4.0)
== END 2025-02-06 07:03 | disposition home or self-care (01) ==
LOC: HO.LAB 07:02
PROVIDERS: PCP Internal Medicine; Visit Provider Nurse Practitioner Family
DX: N40.0 Benign prostatic hyperplasia without lower urinary tract symptoms (principal); R33.9 Retention of urine, unspecified; Z12.5 Encounter for screening for malignant neoplasm of prostate
CPT/HCPCS: 36415; 84153

== ENCOUNTER 2025-02-09 12:30 | Outpatient (AMB) | payer MEDICARE, MEDICAID, SELFPAY ==
--- NOTE | 2025-02-09 13:31 | MHC.OFFVIS ---
Vital Signs 02/09/25 13:32 Height 5 ft 7 in Weight 156 lb 8.451 oz BMI 24.5 BP 120/62 Blood Pressure Location Lt brachial Position Sitting Pulse 54 Pulse Source Monitor Intake Visit Reasons: 1 yr s/p echo Electrical Helper Required: Yes Electrical Helper Name: PRADIP [id number] Allergies No Known Allergies Allergy (Verified 01/13/25 11:06) Medication List - Last Reconciled 02/09/25 by Oliverio Starks MD atorvastatin 10 mg PO DAILY 90 days bethanechol chloride 25 mg PO BID 90 days levothyroxine 50 mcg PO DAILY 90 days losartan 25 mg PO DAILY 90 days metoprolol succinate ER 25 mg PO DAILY rivaroxaban (Xarelto) 20 mg PO DAILY 90 days tamsulosin 0.4 mg PO DAILY 90 days HPI Comments Details: Michael returns for follow-up. History of paroxysmal atrial fibrillation, supposedly noted initially in [place] but no recent issues. He remains on Xarelto. Low-dose beta-blockers. Overall, he is feeling good. No cardiac symptoms whatsoever. [facility] Medical History Dyslipidemia Diverticulosis Ascending aorta enlargement Physical exam Hypovitaminosis D BENNIE (obstructive sleep apnea) Gout Other and unspecified hyperlipidemia PAF (paroxysmal atrial fibrillation) Afib BPH (benign prostatic hyperplasia) Current use of snf anticoagulation Hypothyroidism Essential hypertension Surgical History H/O colonoscopy Family History Father Alzheimer disease Mother Arthritis Other Mental health problem Social History Household Members: Other Household Members Other:: daughter Housing: Apartment Alcohol intake: current Alcohol intake frequency: holidays/special occasions only Alcohol type: beer Patient Tobacco Use Status: Never used Tobacco e-Cigarette/Vaping Use: Never Used Second Hand Smoke Exposure: No service: No Current occupational status: retired and disabled Cognitive needs: No Hearing needs: No Vision needs: Yes Review of Systems Const Denies weakness ENT Denies dizziness Card Denies chest pain, Denies chest pain with activity, Denies syncope, Denies rapid heart rate, Denies pedal edema, Denies edema, Denies leg edema, Denies lightheadedness, Denies palpitations, Denies dyspnea, Denies dyspnea on exertion and Denies orthopnea Resp Denies cough, Denies dyspnea and Denies dyspnea on exertion GI Denies hematochezia and Denies change in stool character Musc Denies abnormal gait, Denies muscle cramps, Denies muscle weakness, Denies numbness, Denies radiating pain into limb and Denies tingling Neuro Denies abnormal gait, Denies dizziness, Denies syncope, Denies numbness, Denies tingling and Denies weakness Endo Denies palpitations Physical Exam Vital Signs: Last Vital Signs Pulse 54 02/09/25 13:32 BP 120/62 02/09/25 13:32 BMI result Body Mass Index 24.5 Const General: comfortable and no acute distress Orientation/consciousness: patient oriented x3 HEENT Other: Unremarkable Head: Yes normal to inspection Neck Neck: Yes normal visual inspection Chest Chest palpation & inspection: normal inspection of the chest Resp Auscultation: clear to auscultation bilaterally Cardio Palpation: normal PMI Heart sounds: S1 normal heart sound present, S2 normal heart sound present, no gallops, no murmurs and no rubs GI Palpation (GI): Soft to palpation Back/Spine/Pelvis Other: unremarkable Skin General skin exam: no rashes or lesions noted Neuro General: patient oriented x3 Extrem General: Yes normal to inspection Psych Mental Status: mental status grossly normal Office Procedures EKG Details: EKG with sinus bradycardia at 54/Min; minimal criteria for LVH; [place]. [id number], Complete Assessment & Plan Assessment & Plan (1) PAF (paroxysmal atrial fibrillation): Code(s): I48.0 - Paroxysmal atrial fibrillation Category: Medical Plan: No recent issues. Continue beta-blockers and Xarelto. (2) Valvular heart disease: Code(s): I38 - Endocarditis, valve unspecified Category: Medical Plan: Mild aortic regurgitation on the echocardiogram. No clinical significance at this time. May be monitored on echocardiogram at the appropriate time. (3) Ascending aorta enlargement: Code(s): I77.89 - Other specified disorders of arteries and arterioles Category: Medical Plan: Stable at 4.1 cm. Recheck before next visit. (4) Essential hypertension: Code(s): I10 - Essential (primary) hypertension Category: Medical Plan: Stable. No changes. Plan Discussion Notes After reviewing the patient's health status and treatment history, I concluded that no new interventions are necessary at this time. The importance of maintaining his prescribed medications reiterated, and the patient's medication record was amended for accuracy. I emphasized the importance of contacting me if the patient experiences any new symptoms, ensuring timely intervention if needed. A follow-up has been set for one year. Patient was informed and verbally consented to the use of an ambient scribe for clinic note documentation during this visit. Patient Instructions: - Continue taking medications as prescribed. - Report any new symptoms or problems right away. - Return for a follow-up in one year unless new issues arise. Coding Level of Care Code Est Pt Level 4 (86421) Diagnoses PAF (paroxysmal atrial fibrillation) I48.0 Valvular heart disease I38 Ascending aorta enlargement I77.89 Essential hypertension I10 CPT Codes EKG - CPT: 41682-[id number], Complete ([id number])
[2025-02-09 13:32] VITALS: BP 120/62; PULSE 54; BMI 24.5
--- OUTSIDE RECORDS SUMMARY | 2025-02-09 14:48 | XMS_ITS | Clinical Summary ---
Author Organization 175 [facility] Address 175 [place] [address] Phone Care Team Providers Care Multimedia Project Manager Name Role Phone Lata Pritchett MD Primary Care Provider [phone] Allergies No known active allergies Medications atorvastatin [...] two weeks apply regular bandaid 25 g 5 01/22/20 25 doxycycline (Vibramycin) 100 mg capsule Take 1 capsule (100 mg total) by mouth 2 (two) times a day for 7 days. 14 capsule 02/09/20 25 Encounters Date Type Department Care Team Description 2025 2:00 PM EDT Office Visit Orthopedic Surgery [address] [phone] Omid Bingham DPM Cellulitis of left foot (Primary Dx); Open wound of left great toe, initial encounter 01/11/2025 10:45 AM EDT Procedure visit Orthopedic [address] [address] Omid Bingham DPM Cellulitis of left foot (Primary Dx); Ingrown toenail 12/31/2024 1:30 PM EDT Consult Orthopedic Surgery [address] [address] Omid Bingham DPM Pain in left foot [...] Upcoming Encounters Date Type Department Care Team ([facility] Contact Info) Description 02/22/2025 2:00 PM EDT Office Visit Orthopedic Surgery - [place] [address] 175 [facility] 250 [place] [phone] Omid Bingham, DURGA 175 [facility] [place] [address] [place] [address] Health Maintenance Due Date Last Done Comments [...] complete this topic Insurance MEDICAID - [place] [facility] MEDICARE ADVANTAGE on file Care Teams Multimedia Project Manager Relationship Specialty Start Date End Date Lata Pritchett MD [address] [place] [address] , [address] Physician Associ D/B/A: [facility] [place], [place] PCP - General Internal Medicine 11/30/24
== END 2025-02-09 14:04 | disposition home or self-care (01) ==
LOC: HO.HCS 12:30
PROVIDERS: PCP Internal Medicine; Visit Provider Internal Medicine
DX: I48.0 Paroxysmal atrial fibrillation (principal); I38 Endocarditis, valve unspecified; I77.89 Other specified disorders of arteries and arterioles; I10 Essential (primary) hypertension
CPT/HCPCS: 93010; 99214

== ENCOUNTER → 2025-02-09 12:30 | Outpatient (BNVA) | payer MEDICARE, SELFPAY | PROVIDERS: PCP Internal Medicine; Visit Provider Internal Medicine | DX: N40.1 Benign prostatic hyperplasia with lower urinary tract symptoms (principal); R33.8 Other retention of urine; N39.43 Post-void dribbling; I48.0 Paroxysmal atrial fibrillation; I38 Endocarditis, valve unspecified; I77.89 Other specified disorders of arteries and arterioles; I10 Essential (primary) hypertension | CPT/HCPCS: 51798; 81003; 93005; 99212 ==

== ENCOUNTER 2025-02-09 14:37 | Outpatient (AMB) | payer MEDICARE, MEDICAID, SELFPAY ==
--- NOTE | 2025-02-09 15:15 | A.OFFVIS_ITS ---
Intake Visit Reasons: 1y/PSA Intake Note: Patient presents today for follow up on: BPH and PSA lab results PSA: 1.62 Urology Med: Bethanechol, Tamsulosin Blood Thinner: Xarelto PVR: 19ml's Broadcast Producer Required: Yes Accompanied by: Daughter Allergies No Known Allergies Allergy (Verified 02/09/25 16:33) Medication List - Last Reconciled 02/09/25 by EBER Iglesias atorvastatin 10 mg PO DAILY 90 days bethanechol chloride 25 mg PO BID 90 days levothyroxine 50 mcg PO DAILY 90 days losartan 25 mg PO DAILY 90 days metoprolol succinate ER 25 mg PO DAILY rivaroxaban (Xarelto) 20 mg PO DAILY 90 days tamsulosin 0.4 mg PO DAILY 90 days HPI Comments Details: Michael is a very pleasant 75-year-old Khmer-speaking male patient of Dr. Torre who was accompanied by his daughter at today's office visit. Has a past medical history of ascending aortic enlargement, obstructive sleep apnea, gout, paroxysmal AFib on anticoagulation, BPH, dyslipidemia, hypothyroidism, and hypertension. He presents to the office today for follow-up of his lower urinary tract symptoms. In discussion with the patient is daughter today he reports to be doing and feeling well. He denies any bothersome urinary issues or concerns. Recent PSA results reviewed with the patient today as noted and trended below: PSA: 02/09 1.3, 02/10 1.4, 02/11 1.3, 02/12 1.6 In office urinalysis results reviewed with the patient today. PVR 19ml's. He denies urinary urgency, urinary frequency, incontinence, nocturia, hematuria, dysuria, foul smelling urine, changes to urinary stream, flank pain, fever, and or chills. When asked he reports be happy with current voiding parameters. He does report episodes of urinary dribbling. We discussed importance of pelvic floor exercises to assist with this issue. He reports compliance with Flomax and bethanechol as prescribed. He otherwise offers no other issues or concerns at this time. Discussion Notes During the consultation, I discussed with the patient that his urinary dribbling is primarily managed through pelvic floor exercises, which help strengthen the pelvic region. I advised that while there are no medications directly effective for dribbling, pelvic floor therapy could be beneficial. I reassured the patient the current PSA level is well within the normal range. We also discussed the option to adjust his medication regimen but concluded this might lead to a retention issue, thus it is preferable to maintain current medications unless further side effects arise. Follow-up instructions included notifying the office should any symptoms change or if assistance with medication management is needed. Plan A comprehensive approach to address the urinary incontinence focused on pelvic floor exercises as a non-pharmacological intervention. Monitoring the effectiveness of these exercises over time in supporting bladder control could mitigate dribbling symptoms. Continuation of Bethanechol is advised to manage urinary retention/incomplete bladder emptying, with a caution against altering dosage without supervision to prevent potential complications. His routine PSA check shows no evidence of malignancy at present, and urine assessments reveal no infections or hematuria. The patient is encouraged to maintain his physical activity through regular walking, supporting overall urological health. Continu ous monitoring of symptoms and reassessment of medication efficacy will guide any future adjustments. Lower urinary tract symptoms Has been taking medication since 2019 Current medications tamsulosin with bethanechol Initially started after episode of urinary retention in [place] Current symptoms - minimal - weak stream, minimal nocturia, minimal bother Investigations - none PSA - 02/10 1.4 Therapeutic plan - remain on medications and repeat PSA in 12 months. 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 Hypothyroidism Essential hypertension Surgical History H/O colonoscopy Family History Father Alzheimer disease Mother Arthritis Other Mental health problem Social History Household Members: Other Household Members Other:: daughter Housing: Apartment Alcohol intake: current Alcohol intake frequency: holidays/special occasions only Alcohol type: beer Patient Tobacco Use Status: Never used Tobacco e-Cigarette/Vaping Use: Never Used Second Hand Smoke Exposure: No service: No Current occupational status: retired and disabled Cognitive needs: No Hearing needs: No Vision needs: Yes Review of Systems Const Reports no additional complaints Eyes Reports no additional complaints ENT Reports no additional complaints Card Reports as per HPI Resp Reports as per HPI GI Reports no additional complaints Reports as per HPI Musc Reports no additional complaints Neuro Reports no additional complaints Psych Reports no additional complaints Endo Reports as per HPI Physical Exam Const General: cooperative, healthy appearing, comfortable, no acute distress, well developed, alert and awake Orientation/consciousness: patient oriented x3 Limitations: language barrier HEENT Head: Yes normal to inspection, Yes normocephalic and Yes atraumatic Ears: hearing grossly normal bilaterally Eyes General: appearance normal, both eyes and all related structures Neck Neck: Yes normal visual inspection and Yes trachea midline Chest Chest palpation & inspection: normal inspection of the chest Resp Effort & Inspection: normal respiratory effort and able to speak in complete sentences Cardio Rate: regular rate GI Inspection: Yes normal to inspection General: Yes no CVA tenderness Back/Spine/Pelvis Back: no CVA tenderness Skin General skin exam: no rashes or lesions noted Neuro General: patient oriented x3 Extrem General: Yes normal to inspection Psych Appearance: grossly normal and well kempt Mental Status: mental status grossly normal Speech and movement: Normal speech and movement present and Clear speech present Affect: normal affect Attitude: cooperative Thought process: Normal thought process present Thought content: Normal thought content present Insight: Fair insight present (Psych) Judgement: Fair judgement present (Psych) Office Procedures Post Void Residual Post Residual Void Post Void Residual (PVR): 19 [id number] Void Residual by ultrasound Results AMB Urinalysis, Automated UA Leukoctes 0 Vivian/uL Last Edit by Song Mahmood on 02/09/25 15:57 UA Nitrite Last Edit by Song Mahmood on 02/09/25 15:57 UA Urobilinogen 0.2 mg/dL Last Edit by Song Mahmood on 02/09/25 15:57 UA Protein 0 mg/dL Last Edit by Song Mahmood on 02/09/25 15:57 UA pH 6.0 Last Edit by Song Mahmood on 02/09/25 15:57 UA Blood 10 Salvador/uL Last Edit by Song Mahmood on 02/09/25 15:57 UA Specific [place] 1.010 Last Edit by Song Mahmood on 02/09/25 15:57 UA Ketone Last Edit by Song Mahmood on 02/09/25 15:57 UA Bilirubin 0 mg/dL Last Edit by Song Mahmood on 02/09/25 15:57 UA Glucose 0 mg/dL Last Edit by Song Mahmood on 02/09/25 15:57 Assessment & Plan Assessment & Plan (1) Urinary retention with incomplete bladder emptying: Code(s): R33.9 - Retention of urine, unspecified Category: Medical (2) BPH (benign prostatic hyperplasia): Code(s): N40.0 - Benign prostatic hyperplasia without lower urinary tract symptoms Category: Medical (3) Urinary dribbling: Code(s): N39.43 - Post-void dribbling Category: Medical Plan In office urinalysis results reviewed with the patient today; as noted above. PVR 19 ml's. He currently denies any bothersome urinary issues or concerns. We discussed pelvic floor exercises to assist with urinary dribbling. Recent PSA results reviewed with the patient today; as noted above. Continue bethanechol and Flomax as prescribed. Will obtain PSA in 1 year. Follow-up in 1 year with PSA and PVR; or sooner with any issues, concerns, and or questions. Orders: Orders Prostate Specific Antigen 1 Year R33.9 - Retention of urine, unspecified AMB Urinalysis Automated Today Z13.9 - Encounter for screening, unspecified AMB Post Void Residual by ultrasound Today R33.9 - Retention of urine, unspecified Patient Instructions: The patient had an opportunity to ask questions regarding the treatment plan. All questions were answered. Physical exam, labs, and imaging were discussed and reviewed in detail. As well as risks, benefits, and discussion of treatment choices. No major barriers to understanding were identified. The patient expressed understanding and agreement with the above treatment plan. The patient was made aware they should contact our office by phone for worsening of their current condition, the appearance of new symptoms, or with any questions or concerns. Compliance is encouraged with any medications and follow up testing that is ordered. It is a privilege to be allowed the opportunity to participate in? your urological care.? Again, if you have any questions or concerns If you have any questions or concerns please do not hesitate to contact me. The office is [phone]. This note is constructed using voice recognition software. While every effort has been made to ensure accuracy manager statistical programming errors may have been included. Yours sincerely, EBER Iglesias Coding Level of Care Code Est Pt Level 3 (10111) Complex EM visit Add On G2211 Diagnoses Urinary retention with incomplete bladder emptying R33.9 BPH (benign prostatic hyperplasia) N40.0 Urinary dribbling N39.43 CPT Codes Post Residual Void - PVR CPT Code: 54473-[id number] Void Residual by ultrasound ([id number])
--- OUTSIDE RECORDS SUMMARY | 2025-02-09 17:27 | XMS_ITS | Clinical Summary ---
Author Organization 175 [facility] Address 175 [place] [address] Phone Care Team Providers Care Shareholder Name Role Phone Lata Pritchett MD Primary Care Provider [phone] Allergies No known active allergies Medications atorvastatin [...] 2:00 PM EDT Office Visit Orthopedic Surgery [address] [phone] Omid Bingham DPM Cellulitis of left foot (Primary Dx); Open wound of left great toe, initial encounter 01/11/2025 10:45 AM EDT Procedure visit Orthopedic [address] [phone] Omid Bingham DPM Cellulitis of left foot (Primary Dx); Ingrown toenail 12/31/2024 1:30 PM EDT Consult Orthopedic Surgery [address] [phone] Omid Bingham DPM Pain in left foot [...] Upcoming Encounters Date Type Department Care Team ([facility] Contact Info) Description 02/22/2025 2:00 PM EDT Office Visit Orthopedic Surgery - [place] [address] [facility] 250 [place] [phone] Omid Bingham, DURGA 175 [facility] 250 [place] [address] Health Maintenance Due Date Last Done Comments [...] complete this topic Insurance [place]ICA[place] - [place] [facility] MEDICARE ADVANTAGE on file Care Teams Shareholder Relationship Specialty Start Date End Date Lata Pritchett MD [address] [place] [address] , [address] Physician Associ D/B/A: [facility] [place], [place] PCP - General Internal Medicine 11/30/24
== END 2025-02-09 15:55 | disposition home or self-care (01) ==
PROVIDERS: PCP Internal Medicine; Visit Provider Nurse Practitioner Family
DX: R33.9 Retention of urine, unspecified (principal); N40.0 Benign prostatic hyperplasia without lower urinary tract symptoms; N39.43 Post-void dribbling; Z13.9 Encounter for screening, unspecified
CPT/HCPCS: 99213; G2211

== ENCOUNTER 2025-05-10 06:13 | Outpatient (REF) | payer MEDICARE, MEDICAID, SELFPAY ==
--- OUTSIDE RECORDS SUMMARY | 2025-05-10 06:15 | XMS_ITS | Clinical Summary ---
Author Organization [address] [place] [address] Address 175 [place] [address] Phone Care Team Providers Care Recreation Counselor Name Role Phone Lata Pritchett MD Primary Care Provider [phone] Allergies No known active allergies Medications atorvastatin [...] by mouth 1 (one) time each day. Active Encounters Date Type Department Care Team Description 03/11/2025 2:45 PM EDT Office Visit Orthopedic Surgery [place] [address] [phone] Omid Bingham DPM Open wound of left great toe, subsequent encounter (Primary Dx) 02/22/2025 2:00 PM EDT Office Visit Orthopedic Surgery [facility] [address] [phone] Omid Bingham DPM Open wound of left great toe, subsequent encounter (Primary Dx); Ingrown toenail; Pain in left foot from Last 3 Months Social History Tobacco [...] 2025 1:59 PM EDT Plan of Treatment Health Maintenance Due Date Last Done Comments Depression Screening 10/21/2024 Abdominal Aortic Aneurysm (AAA) Screen 12/01/2024 Cholesterol Screening (Lipid Panel) 12/01/2024 Colorectal Cancer Screening: Colonoscopy 12/01/2024 Falls Risk Assessment 12/01/2024 Hepatitis C Screening 12/01/2024 Medicare Annual Wellness Visit 12/01/2024 Social Influencers of Health Screening 12/01/2024 COVID-19 Vaccine ( season) 2025 08/07/2024, 07/22/2023, 03/09/2022, Additional history exists Influenza Vaccine (#1) 2025 3, 06/22/2022, 06/02/2021 RSV Immunization Adult Patients (1 [...] complete this topic Insurance [place]ICA[place] - [place] [employer] MEDICARE ADVANTAGE on file Care Teams Recreation Counselor Relationship Specialty Start Date End Date Lata Pritchett MD [address] [place] [address] , [facility] 101 [facility] Physician Associ D/B/A: [facility] SONNY King PCP - General Internal Medicine 11/30/24
[2025-05-10 10:53] LABS: Alanine Aminotransferase 18 U/L (0-40); Albumin Level 4.5 g/dL (3.5-5.0); Alkaline Phosphatase 54 U/L (39-117); Anion Gap 9 (12-20); Aspartate Amino Transferase 22 U/L (5-37); Blood Urea Nitrogen 10 mg/dL (9-16); Calcium 9.0 mg/dL (8.4-10.2); Carbon Dioxide 25 mmol/L (22-29); Chloride 107 mmol/L (96-108); Cholesterol 172 mg/dL (<200); Estimated Glomerular Filt Rate > 60; HDL Cholesterol 63 mg/dL (>40); Potassium 4.3 mmol/L (3.3-5.1); Sodium 137 mmol/L (135-145); Thyroid Stimulating Hormone 1.16 uIU/mL (0.32-4.0); Total Protein 7.1 g/dL (6.5-8.0); Triglycerides 96 mg/dL (<150)
== END 2025-05-10 06:14 | disposition home or self-care (01) ==
LOC: HO.HMGCLDS 06:13
PROVIDERS: PCP Internal Medicine; Visit Provider Internal Medicine
DX: Z00.00 Encounter for general adult medical examination without abnormal findings (principal); E03.9 Hypothyroidism, unspecified; E78.5 Hyperlipidemia, unspecified
CPT/HCPCS: 36415; 80053; 80061; 84443

== ENCOUNTER 2025-05-24 13:28 | Outpatient (AMB) | payer MEDICARE, MEDICAID, SELFPAY ==
--- NOTE | 2025-05-24 13:34 | A.OFFPC_ITS ---
Vital Signs 05/24/25 13:35 Height 5 ft 7 in Weight 159 lb BMI 24.9 BP 118/78 Blood Pressure Location Lt brachial Position Sitting Intake Visit Reasons: afib Intake Note: Patient here for a follow up afib Monitoring Analyst Required: No Accompanied by: Self / Same As Patient Allergies No Known Allergies Allergy (Verified 05/24/25 13:40) Medication List - Last Reconciled 05/24/25 by Lata Pritchett MD atorvastatin 10 mg PO DAILY 90 days bethanechol chloride 25 mg PO BID 90 days levothyroxine 50 mcg PO DAILY 90 days losartan 25 mg PO DAILY 90 days metoprolol succinate ER 25 mg PO DAILY 90 days rivaroxaban (Xarelto) 20 mg PO DAILY 90 days tamsulosin 0.4 mg PO DAILY 90 days Tobacco use date assessed: 01/13/25 Fall risk assessment: No Falls in past year Last assessed Fall Risk: 05/24/25 Dental Screening Dental Screen Date: 01/13/25 HPI HPI Comments History of Present Illness Details The patient is a 75-year-old male presenting with a routine follow-up for chronic conditions and preventative care. The patient has a history of atrial fibrillation, for which he is under cardiology care and is currently taking rivaroxaban. He also has benign prostatic hyperplasia, managed with tamsulosin. His blood pressure is well-controlled with a reading of 118/78 mmHg, and he is on losartan and metoprolol for hypertension management. The patient is also on atorvastatin for hyperlipidemia, with recent cholesterol levels reported as excellent at 172 mg/dL. He has hypothyroidism, managed with levothyroxine, and recent thyroid function tests are normal. The patient denies any history of smoking and reports occasional alcohol consumption during special occasions. He is scheduled for a pneumonia vaccination and will have repeat laboratory tests in January of the following year. [facility] Medical History Dyslipidemia Diverticulosis Ascending aorta enlargement Physical exam Hypovitaminosis D BENNIE (obstructive sleep apnea) Gout Other and unspecified hyperlipidemia PAF (paroxysmal atrial fibrillation) Afib BPH (benign prostatic hyperplasia) Current use of long-term anticoagulation Hypothyroidism Essential hypertension Surgical History H/O colonoscopy Family History Father Alzheimer disease Mother Arthritis Other Mental health problem Social History Household Members: Other Household Members Other:: daughter Housing: Apartment Alcohol intake: current Alcohol intake frequency: holidays/special occasions only Alcohol type: beer Patient Tobacco Use Status: Never used Tobacco e-Cigarette/Vaping Use: Never Used Second Hand Smoke Exposure: No service: No Current occupational status: retired and disabled Cognitive needs: No Hearing needs: No Vision needs: Yes Questionnaire PHQ-9 Over the last 2 weeks, how often have you been bothered by any of the following problems? 1. Little interest or pleasure in doing things: not at all 2. Feeling down, depressed, or hopeless: not at all 3. Trouble falling or staying asleep, or sleeping too much: not at all 4. Feeling tired or having little energy: several days 5. Poor appetite or overeating: not at all 6. Feeling bad about yourself - or that you are a failure or have let yourself or your family down: several days 7. Trouble concentrating on things, such as reading the newspaper or watching television: not at all 8. Moving or speaking so slowly that other people could have noticed. Or the opposite - being so fidgety or restless that you have been moving around a lot more than usual: not at all 9. Thoughts that you would be better off or of hurting yourself in some way: not at all Total score: 2 Depression Screening Interpretation: Negative Depression Screening Done: Yes 33059 - PHQ-9 Billing: Yes Source: Developed by Drs. Colton Yañez, Lilia Louis, Fili Echevarria and colleagues, with an educational mesfin from [employer]. Thrive Questionnaire Date Thrive assessed: 01/13/25 I am a: Patient What is your living situation today?: I have a steady place to live Within the past 12 months, did the food you bought not last and you didn't have the money to get more?: Never true Within the past 12 months, did you worry whether your food would run out before you got money to buy more?: I choose not to answer this question Do you have trouble paying for medicines?: I choose not to answer this question Do you have trouble getting transportation to medical appointments?: I choose not to answer this question Do you have trouble paying your heating and electricity bill?: I choose not to answer this question Do you have trouble taking care of your child, family member or friend?: I choose not to answer this question Do you have trouble with day-to-day activities such as bathing, preparing meals, shopping, managing finances, etc.?: I choose not to answer this question Are you currently unemployed and looking for a job?: I choose not to answer this question Are you interested in more education?: I choose not to answer this question Please select the resources that you would like help with: None Currently or been in a relationship where the following occur: I choose not to answer THRIVE Score: 0 AUDIT C Alcohol Use Questionnaire (AUDIT-C) 1. How often do you have a drink containing alcohol?: Monthly or less 2. How many drinks containing alcohol do you have on a typical day when you are drinking?: 1 or 2 3. How often do you have six or more drinks on one occasion?: Never Total Score: 1 Score Reviewed/Action Taken: No MICHAEL-7 AMB Questionnaire MICHAEL-7 Date MICHAEL - 7 assessed: 01/13/25 Feeling nervous, anxious, or on edge: 0 = Not at all Not being able to stop or control worryin = Not at all Worrying too much about different things: 0 = Not at all Trouble relaxin = Not at all Being so restless that it is hard to sit still: 0 = Not at all Becoming easily annoyed or irritable: 0 = Not at all Feeling afraid as if something awful might happen: 0 = Not at all Total MICAHEL-7 score (0-4 normal; 5-9 mild; 10-14 moderate; 15-21 severe): 0 Source: Developed by Drs. Colton Yañez, Lilia Louis, Fili Echevarria and colleagues, with an educational mesfin from [employer]. MICHAEL-7 Assessment Billing MICHAEL-7 Assessment Tool: MICHAEL-7 Assessment 14690 Review of Systems Const All systems reviewed & are unremarkable except as noted in HPI and below Card Denies chest pain at rest, Denies chest pain with activity, Denies edema, Denies irregular heart rhythm, Denies claudication, Denies dyspnea, Denies dyspnea on exertion, Denies orthopnea, Denies paroxysmal nocturnal dyspnea and Denies slow heart rate Resp Denies cough, Denies dyspnea and Denies dyspnea on exertion GI Denies abdominal pain, Denies change in bowel habits, Denies excessive flatus, Denies nausea and Denies vomiting Denies urinary hesitancy, Denies urinary incontinence and Denies urinary urgency Musc Denies abnormal gait, Denies atrophy, Denies deformity and Denies limited range of motion Skin/Breast Denies bleeding lesions, Denies changing lesions and Denies rash Neuro Denies abnormal gait, Denies behavioral changes and Denies lack of coordination Psych Denies behavioral changes Physical exam (Primary Care) Vital Signs: Last Vital Signs BP 118/78 05/24/25 13:35 BMI result Body Mass Index 24.9 Tobacco/Smoking Status: Tobacco use Status Tobacco use date assessed 01/13/25 05/24/25 13:40 Patient Tobacco Use Status Never used Tobacco 05/24/25 13:40 e-Cigarette/Vaping Use Never Used 05/24/25 13:40 PHQ-9: PHQ-9 Score PHQ-9: Total score 2 05/24/25 13:52 Depression Screening Interpretation: Negative Thrive Assessment: Date of Thrive Assessment Date Thrive assessed 01/13/25 05/24/25 13:40 Currently or been in a relationship where the following occur: I choose not to answer Resp Effort & Inspection: normal respiratory effort Auscultation: clear to auscultation bilaterally Cardio Jugular venous distension: no JVD Rate: regular rate Rhythm: regular rhythm Heart sounds: S1 normal heart sound present and S2 normal heart sound present Extrem General: Yes full ROM Immunizations pneumoc 20-herrera conj-dip cr(PF) 0.5 mL IM syringe Performing Provider: Lata Pritchett MD [facility] Administered by: CORY Razo on 05/24/25 13:52 Dose Route Admin Location Dispensed Lot Number Expiration Date [facility] [employer] 0.5 mL IM Left Deltoid 0.5 mL [id number] 04/20/26 5393-7292-71 [employer] /PFIZER Total Dispensed Waste 0.5 mL 0 % VIS Given Date VIS Provided VIS Publication Date 05/24/25 Single Vaccine 25 Eligibility Eligibility Date Funding Source Not [facility] Eligible 05/24/25 Private Coding Level of Care Code Est Pt Level 4 (26580) Complex EM visit Add On G2211 Diagnoses PAF (paroxysmal atrial fibrillation) I48.0 Essential hypertension I10 Dyslipidemia E78.5 Hypothyroidism, unspecified type E03.9 Hypothyroidism type: unspecified BPH (benign prostatic hyperplasia) N40.0 Bicytopenia D75.89 Additional Codes MICHAEL-7 Assessment Billing - MICHAEL-7 Assessment Tool: MICHAEL-7 Assessment 95211 ([id number]) PHQ-9 - 67314 - PHQ-9 Billing: Yes ([id number]) Time Spent (min) 24 Assessment & Plan Assessment & Plan (1) PAF (paroxysmal atrial fibrillation): Code(s): I48.0 - Paroxysmal atrial fibrillation Category: Medical (2) Essential hypertension: Code(s): I10 - Essential (primary) hypertension Category: Medical (3) Dyslipidemia: Code(s): E78.5 - Hyperlipidemia, unspecified Category: Medical (4) Hypothyroidism: Code(s): E03.9 - Hypothyroidism, unspecified Category: Medical Qualifiers: Hypothyroidism type: unspecified Qualified Code(s): E03.9 - Hypothyroidism, unspecified (5) BPH (benign prostatic hyperplasia): Code(s): N40.0 - Benign prostatic hyperplasia without lower urinary tract symptoms Category: Medical (6) Bicytopenia: Code(s): D75.89 - Other specified diseases of blood and blood-forming organs Category: Medical Plan The patient will continue current medications for atrial fibrillation, hypertension, hyperlipidemia, and hypothyroidism. He is advised to receive a pneumonia vaccination during this visit. Follow-up laboratory tests are schedule d for January of the following year to monitor his chronic conditions. Patient was informed and verbally consented to the use of an ambient scribe for clinic note documentation during this visit. I discussed with the patient the importance of continuing his current medication regimen for managing his chronic conditions, including atrial fibrillation, hypertension, hyperlipidemia, and hypothyroidism. We also talked about the need for a pneumonia vaccination today and the plan to repeat laboratory tests in January to ensure stable management of his conditions. Orders: Orders Lipid Panel 8 Months E78.5 - Hyperlipidemia, unspecified Comprehensive [place]. Panel Fast 8 Months I10 - Essential (primary) hypertension Thyroid Stimulating Hormone 8 Months E03.9 - Hypothyroidism, unspecified Complete Blood Count Auto Diff 8 Months D64.9 - Anemia, unspecified Vitamin D 25-OH Total 8 Months E55.9 - Vitamin D deficiency, unspecified Uric Acid 8 Months M10.9 - Gout, unspecified Pneumococcal 20 Immunization Today Z23 - Encounter for immunization Patient Instructions: - Continue taking all prescribed medications as directed. - Receive the pneumonia vaccine today. - Return for follow-up lab tests in January next year.
[2025-05-24 13:35] VITALS: BP 118/78; BMI 24.9
--- OUTSIDE RECORDS SUMMARY | 2025-05-24 13:44 | XMS_ITS | Clinical Summary ---
Author Organization [address] [place] [address] Address 175 [place] [address] Phone Care Team Providers Care Screw Machine Operator Name Role Phone Lata Pritchett MD Primary Care Provider [phone] Allergies No known active allergies Medications atorvastatin [...] 2:45 PM EDT Office Visit Orthopedic Surgery [place] [address] [phone] Omid Bingham DPM Open wound of left great toe, subsequent encounter (Primary Dx) 02/22/2025 2:00 PM EDT Office Visit Orthopedic Surgery [facility] [address] [phone] Omid Bingham DPM Open wound of left [...] [employer] MED[employer] ADVANTAGE on file Care Teams Screw Machine Operator Relationship Specialty Start Date End Date Lata Pritchett MD [address] [place] [address] , [facility] 101 [facility] Physician Associ D/B/A: [facility] SONNY King PCP - General Internal Medicine 11/30/24
== END 2025-05-24 13:57 | disposition home or self-care (01) ==
LOC: HO.HMCH 13:29
PROVIDERS: PCP Internal Medicine; Visit Provider Internal Medicine
DX: I48.0 Paroxysmal atrial fibrillation (principal); I10 Essential (primary) hypertension; E78.5 Hyperlipidemia, unspecified; E03.9 Hypothyroidism, unspecified; N40.0 Benign prostatic hyperplasia without lower urinary tract symptoms; D75.89 Other specified diseases of blood and blood-forming organs; Z23 Encounter for immunization

== ENCOUNTER → 2025-05-24 13:28 | Outpatient (BNVA) | payer MEDICARE, MEDICAID, SELFPAY | PROVIDERS: PCP Internal Medicine; Visit Provider Internal Medicine | DX: I48.0 Paroxysmal atrial fibrillation (principal); Z23 Encounter for immunization; I10 Essential (primary) hypertension; E78.5 Hyperlipidemia, unspecified; E03.9 Hypothyroidism, unspecified; N40.0 Benign prostatic hyperplasia without lower urinary tract symptoms; D75.89 Other specified diseases of blood and blood-forming organs; Z79.01 Long term (current) use of anticoagulants; Z79.899 Other long term (current) drug therapy; Z13.31 Encounter for screening for depression | CPT/HCPCS: 90471; 90677; 96127; 99212 ==